=== PATIENT | female | born 1970 | race American Indian/Alaskan Native ===

== ENCOUNTER 2017-04-16 10:28 | Inpatient (IN) | payer BC ==
--- NOTE | 2017-04-16 10:55 | ED PDOC ---
Arrival/HPI - General Time Seen by Provider: 04/16/17 10:29 Historian: Patient - History of Present Illness Narrative History of Present Illness (Text): 04/16/17 10:29 A 47 year old female brought into the emergency department by EMS from dialysis center for left sided weakness. as per ems and provider at [facility] center, pt had onset of symptoms at 10am. Patient was last seen normal approximately 30 minutes prior to evaluation. at bedside, pt with left sided defcitis, awake, alert, denies other complaints. code stroke called upon arrival. PMD: Dr. Reyes 04/16/17 18:02 Time/Duration: Prior to Arrival Symptom Course: Unchanged Quality: Other Context: Other (Dialysis center) Past Medical History - Provider Review Nursing Documentation Reviewed: Yes - Cardiac Hx Cardiac Disorders: Yes Hx Congestive Heart Failure: Yes Hx Hypertension: Yes - Pulmonary Hx Respiratory Disorders: No - Neurological Hx Neurological Disorder: No Hx Paralysis: No - HEENT Hx HEENT Disorder: No - Renal Hx Renal Disorder: Yes Hx Renal Failure: Yes (PT. FOUND OUT IN 2013) Other/Comment: Left AV shunt - Endocrine/Metabolic Hx Diabetes Mellitus Type 1: Yes Other/Comment: Partial Thyroidectomy - Hematological/Oncological Hx Anemia: Yes - Integumentary Hx Dermatological Disorder: No - Musculoskeletal/Rheumatological Hx Falls: Yes - Gastrointestinal Hx Gastrointestinal Disorders: No - Genitourinary/Gynecological Hx Genitourinary Disorders: Yes (RENAL FAILURE) Other/Comment: Partial Hysterectomy 2007 - Psychiatric Hx Substance Use: No - Surgical History Hx Cholecystectomy: Yes Hx Hysterectomy: Yes - Anesthesia Hx Anesthesia Reactions: No Hx Malignant Hyperthermia: No - Suicidal Assessment Feels Threatened In Home Enviroment: No Family/Social History - Physician Review Nursing Documentation Reviewed: Yes Family/Social History: No Known Family HX Smoking Status: Never Smoked Hx Alcohol Use: No Hx Substance Use: No Allergies/Home Meds Allergies/Adverse Reactions: Allergies No Known Allergies Allergy (Verified 04/16/17 21:39) Home Medications: Home Meds Medication Instructions Recorded Confirmed Furosemide [Lasix] 3 tab PO BID 12/03/14 04/17/17 Insulin Glargine,Hum.rec.anlog 10 unit SC HS 12/03/14 04/17/17 [Lantus] Carvedilol [Coreg] 12.5 mg PO BID 04/30/15 04/17/17 Ferrous Sulfate [Feosol] 325 mg PO DAILY 04/17/17 04/17/17 Review of Systems - Review of Systems Systems not reviewed;Unavailable: Acuity of Condition Physical Exam Vital Signs Reviewed: Yes Vital Signs Temp Pulse Pulse Resp BP Pulse Ox 04/16/17 15:10 78 18 130/70 100 04/16/17 14:45 80 16 118/62 100 04/16/17 14:30 87 16 157/78 H 100 04/16/17 14:15 90 16 147/72 100 04/16/17 14:00 85 16 142/70 100 04/16/17 13:45 82 16 160/84 H 100 04/16/17 13:30 88 16 154/84 H 100 04/16/17 13:00 87 18 180/88 H 100 04/16/17 12:44 89 16 161/85 H 100 04/16/17 12:30 89 16 160/84 H 100 04/16/17 12:15 86 16 176/86 H 100 04/16/17 12:00 106 H 16 167/94 H 93 L 04/16/17 11:45 90 16 160/84 H 100 04/16/17 11:30 92 H 16 177/84 H 100 04/16/17 11:15 86 18 176/110 H 100 04/16/17 11:03 97.7 F 94 H 19 185/105 H 98 04/16/17 11:00 95 H 18 207/135 H 95 04/16/17 10:45 92 H 18 212/117 H 100 04/16/17 10:30 93.2 F L 66 65 16 130/57 L Temperature: Afebrile Blood Pressure: Hypertensive Pulse: Tachycardic Respiratory Rate: Normal Mental Status: Positive for: other (acting normal to baseline, ambulating without difficulty) - Systems Exam Upper Extremity: No: Cyanosis, Edema Lower Extremity: No: Edema Skin: No: Rashes Medical Decision Making ED Course and Treatment: 04/16/17 10:29 Impression: A 47 year old female sent from dialysis for left sided weakness. r/o cva Plan: -- Head CT -- Chest xray -- EKG -- Labs -- Urinalysis -- Nicardipine -- Reassess and disposition Progress Notes: Code stroke called upon patients arrival at 10:[address]. intial head ct shows large hemorrhage. case discussed with dr kyle, recommend neurosurgical eval. case discussed with dr alvarado, who came bedsdie, no surgical intervention. case discussed with [facility] for possible transfer, dr palmer. advises no surgical intervention indicated, so no indication for transfer. 04/16/17 11:06 EKG shows NSR at [address]/T wave changes. Interpreted by me. Report Date : 04/16/2017 10:56:27 PROCEDURE: CT HEAD WITHOUT CONTRAST. Dictator : Rei Morle MD IMPRESSION: Intraparenchymal hemorrhage is identified in the right cerebral hemisphere centered at the right basal ganglia but also in the medial right temporal lobe and inferior right frontal lobe, overall volume approximately 36 cc. A minimal leftward midline shift is identified at 5 mm. Basilar cisterns appear widely patent. Limited local mass-effect is otherwise identified. Intraventricular hemorrhage is identified at the right lateral ventricle predominately but also mildly at the left lateral ventricle and in the 3rd and 4th ventricles as well. Remainder the brain appears unremarkable. Report Date : 04/16/2017 10:58:01 PROCEDURE: CHEST RADIOGRAPH, 1 VIEW Dictator : Rob Mcduffie MD IMPRESSION: Mild vascular congestion and minimal interstitial infiltrate at the right lung base 04/16/17 18:03 1130: upon reassesemtn found pt lethargic, minimally responsive. pt intubated for airway protection. dr kyle bedside, dr jamil bedside. repeat head ct ordered. dr majano bedside, placed ventric, will take pt to OR for craniotomy - Lab Interpretations Lab Results: 04/16/17 10:56 04/16/17 10:56 Lab Results 04/16/17 12:45: pCO2 40, pO2 211.0 H, HCO3 27.2, ABG pH 7.44, ABG Total CO2 28.4 H, ABG O2 Saturation 99.2 H, ABG Base Excess 2.8, ABG Potassium 3.4 L, Glucose 219 H, Lactate 1.4, FiO2 50.0, Sodium 151.0 H, Chloride 98.0, Arterial Blood Potassium 3.4 L 04/16/17 12:15: Blood Type Confirm B POSITIVE 04/16/17 11:29: Blood Type B POSITIVE, Antibody Screen Negative, BBK History Checked No verified bt 04/16/17 10:56: Hemoglobin A1c 8.3 H 04/16/17 10:56: Sodium 143, Potassium 3.3 L, Chloride 99, Carbon Dioxide 30, Anion Gap 17, BUN 17, Creatinine 3.6 H, Est GFR ( Amer) 16, Est GFR (Non- Af Amer) 14, Random Glucose 156 H, Calcium 9.4, Total Bilirubin 1.5 H, AST 38, ALT 41, Alkaline Phosphatase 291 H, Troponin I 0.03, Total Protein 7.2, Albumin 3.7, Globulin 3.5, Albumin/Globulin Ratio 1.1, Triglycerides 113, Cholesterol 196, LDL Cholesterol Direct 103, HDL Cholesterol 60 04/16/17 10:56: PT 13.5 H, INR 1.25 H, APTT 23.6 L 04/16/17 10:56: WBC 5.7, RBC 4.29, Hgb 12.6, Hct 36.9, MCV 86.0, MCH 29.4, MCHC 34.1, RDW 15.0 H, Plt Count 248, MPV 12.2 H, Gran % 59.9, Lymph % (Auto) 28.0, Colbert % (Auto) 8.0 H, Eos % (Auto) 3.1, Baso % (Auto) 1.0, Gran # 3.43, Lymph # 1.6, Colbert # 0.5, Eos # 0.2, Baso # 0.06 I have reviewed the lab results: Yes - RAD Interpretation Radiology Orders: 04/16/17 10:30 HEAD W/O (CODE STROKE) [CT] Stat CHEST ONE VIEW [RAD] Stat 04/16/17 12:38 CXR [CHEST PORTABLE] [RAD] Stat - Medication Orders Current Medication Orders: Nicardipine HCl (Cardene Iv Premix) 20 mg in 200 mls @ 50 mls/hr IV .Q4H PRN; Protocol; 5 MG/HR PRN Reason: TITRATE PER MD ORDER Last Titration: 04/18/17 15:08 Dose: 0 mg/hr, 0 mls/hr Propofol (Diprivan) 1,000 mg in 100 mls @ 1.705 mls/hr IV .Q24H PRN; Protocol; 5 MCG/KG/MIN PRN Reason: TITRATE PER MD ORDER Last Titration: 04/18/17 08:30 Dose: 0 mcg/kg/min, 0 mls/hr Doxycycline Hyclate 100 mg/ (Sodium Chloride) 100 mls @ 100 mls/hr IVPB Q12 NILSA PRN Reason: Protocol Last Admin: 04/19/17 09:19 Dose: 100 mls/hr Ceftriaxone Sodium (Rocephin 1 Gram Ivpb) 1 gm in 100 mls @ 100 mls/hr IVPB DAILY NILSA PRN Reason: Protocol Last Admin: 04/19/17 09:13 Dose: 100 mls/hr Insulin Human Regular 100 (units/ Sodium Chloride) 100 mls @ 1 mls/hr IV .Q24H PRN; Protocol; 1 UNITS/HR PRN Reason: TITRATE PER MD ORDER Last Titration: 04/19/17 02:06 Dose: 0 units/hr, 0 mls/hr Levetiracetam 1,000 mg/ Sodium (Chloride) 110 mls @ 460 mls/hr IV Q12 [facility] Last Admin: 04/19/17 09:18 Dose: 460 mls/hr Sodium Chloride (Hypertonic Saline 3%) 500 mls @ 30 mls/hr IV .[id number] [facility] Last Admin: 04/19/17 09:07 Dose: 30 mls/hr Pantoprazole Sodium (Protonix Inj) 40 mg IVP Q12 [facility] Last Admin: 04/19/17 09:13 Dose: 40 mg Polyethylene Glycol (Miralax) 17 gm PO DAILY NILSA Discontinued Medications Bacitracin (Bacitracin) Confirm Administered Dose 30 gm .ROUTE .STK-MED ONE Stop: 04/16/17 15:02 Bacitracin (Bacitracin) Confirm Administered Dose 50,000 unit .ROUTE .STK-MED ONE Stop: 04/16/17 15:02 Ephedrine (Ephedrine) Confirm Administered Dose 50 mg .ROUTE .STK-MED ONE Stop: 04/16/17 15:10 Etomidate (Amidate) Confirm Administered Dose 20 mg IV .STK-MED ONE Stop: 04/16/17 12:07 Last Admin: 04/16/17 18:11 Dose: Fentanyl (Fentanyl) Confirm Administered Dose 250 mcg IV .STK-MED ONE Stop: 04/16/17 15:18 Gelatin (Gelfoam Size 100) Confirm Administered Dose 1 spg .ROUTE .STK-MED ONE Stop: 04/16/17 15:02 Desmopressin Acetate 8 mcg/ (Sodium Chloride) 52 mls @ 100 mls/hr IV STAT STA Stop: 04/16/17 13:30 Last Admin: 04/16/17 18:11 Dose: Sodium Chloride (Sodium Chloride 0.9%) 1,000 mls @ 999 mls/hr IV .Q1H1M STA Stop: 04/16/17 20:46 Last Admin: 04/16/17 20:06 Dose: 999 mls/hr Sodium Chloride (Hypertonic Saline 3%) 500 mls @ 30 mls/hr IV .[id number] [facility] Last Admin: 04/16/17 22:18 Dose: 30 mls/hr Potassium Chloride (Potassium Chloride 20 Meq/100 Ml) 20 meq in 100 mls @ 50 mls/hr IVPB ONCE ONE Stop: 04/17/17 02:37 Last Admin: 04/17/17 00:44 Dose: 50 mls/hr Sodium Chloride (Hypertonic Saline 3%) 500 mls @ 50 mls/hr IV .Q10H [facility] Last Admin: 04/17/17 21:30 Dose: 50 mls/hr Potassium Chloride (Potassium Chloride 20 Meq/100 Ml) 20 meq in 100 mls @ 50 mls/hr IVPB ONCE ONE Stop: 04/17/17 11:49 Last Admin: 04/17/17 10:30 Dose: Potassium Chloride (Potassium Chloride 20 Meq/100 Ml) 20 meq in 100 mls @ 50 mls/hr IVPB ONCE ONE Stop: 04/17/17 18:20 Last Admin: 04/17/17 19:00 Dose: Sodium Chloride (Sodium Chloride 0.9%) 500 mls @ 999 mls/hr IV .Q31M STA Stop: 04/18/17 16:07 Last Admin: 04/18/17 15:45 Dose: 999 mls/hr Insulin Human Regular (Humulin R Med) 0 units SC Q4H NILSA PRN Reason: Protocol Insulin Human Regular (Humulin R Med) 0 units SC Q2H NILSA PRN Reason: Protocol Last Admin: 04/16/17 22:00 Dose: Labetalol HCl (Trandate) 10 mg IV STAT STA Stop: 04/16/17 13:55 Last Admin: 04/16/17 18:10 Dose: Lidocaine/Epinephrine (Xylocaine 1% W Epi 1:100,000 Inj) Confirm Administered Dose 50 ml .ROUTE .STK-MED ONE Stop: 04/16/17 15:02 Last Admin: 04/16/17 16:25 Dose: 8 ml Lorazepam (Ativan) Confirm Administered Dose 2 mg .ROUTE .STK-MED ONE Stop: 04/16/17 14:19 Last Admin: 04/16/17 18:10 Dose: Ondansetron HCl (Zofran Inj) Confirm Administered Dose 4 mg .ROUTE .STK-MED ONE Stop: 04/16/17 10:46 Last Admin: 04/16/17 10:45 Dose: 4 mg Comments: given emergency Ondansetron HCl (Zofran Inj) 4 mg IVP STAT STA Stop: 04/16/17 11:22 Last Admin: 04/16/17 11:52 Dose: 4 mg Phenylephrine HCl (Phenylephrine Inj) Confirm Administered Dose 10 mg .ROUTE .ST-MED ONE Stop: 04/16/17 15:11 Pneumococcal Polyvalent Vaccine (Pneumovax 23 Vaccine) 0.5 ml IM .ONCE ONE Stop: 04/17/17 01:00 Rocuronium [place] (Zemuron) 50 mg IVP STAT STA Stop: 04/16/17 14:44 Last Admin: 04/16/17 18:09 Dose: Rocuronium [place] (Zemuron) Confirm Administered Dose 50 mg .ROUTE .STK-MED ONE Stop: 04/16/17 15:06 Soap/Cleanser (Mastisol Adhesive) Confirm Administered Dose 1.332 ml TOP .STK- MED ONE Stop: 04/16/17 16:19 Succinylcholine Chloride (Quelicin) Confirm Administered Dose 200 mg IV .STK- MED ONE Stop: 04/16/17 12:07 Last Admin: 04/16/17 12:10 Dose: 100 mg Comments: adm as per verbal order from dr. mi Thrombin (Thrombin-Jmi 20,000 Intl Units Landing Kit) Confirm Administered Dose 20 ,000 iu TOP .STK-MED ONE Stop: 04/16/17 15:03 Vancomycin HCl (Vancomycin Inj) Confirm Administered Dose 1 gm .ROUTE .STK-MED ONE Stop: 04/16/17 15:50 Last Admin: 04/16/17 15:51 Dose: 1 gm Comments: ORM Administered Route: IVPB NIHSS Scale ([place]) Time Performed: 10:29 - How Severe is the Stoke Baseline Level of Consciousness: 0=Alert LOC to Questions: 0=Both comments correct LOC to commands: 0=Obeys both correctly Best Gaze: 1=Partial gaze palsy Visual: 0=No visual loss Facial: 3=Complete unilateral paralysis Motor Arm - Left: 4=No movement Motor Arm - Right: 0=No drift Motor Leg - Left: 4=No movement Motor Leg - Right: 0=No drift Limb Ataxia: 0=Absent Sensory: 0=Normal Best Language: 0=No aphasia Dysarthia: 1=Mild to moderate slurring Extinction & Inattention (Neglect): 0=Normal, no object Score: 13 Risk Level: Mod Stroke Risk rTPA Inclusion/Exclusion - Refusal of Treatment Patient Refused Treatment: No - Inclusion Criteria for Altepase Patient is 18 years or Older: Yes The Clinical Diagnosis of Ischemic Stroke That is Causing a Potentially Disabling Neurological Deficit: Yes Time of Onset is Well Established to be Less Than 270 Minute Before Treatment Would Begin: Yes Risk/Benefit Discussed With Patient/Family Member Present: No - Exclusion Criteria for Altepase Active Internal Bleeding: Yes - Scribe Statement The provider has reviewed the documentation as recorded by the Imaniibmaria ines Maravilla Provider Scribe Attestation: All medical record entries made by the Scribe were at my direction and personally dictated by me. I have reviewed the chart and agree that the record accurately reflects my personal performance of the history, physical exam, medical decision making, and the department course for this patient. I have also personally directed, reviewed, and agree with the discharge instructions and disposition. Disposition/Present on Arrival - Present on Arrival Any Indicators Present on Arrival: No History of DVT/PE: No History of Uncontrolled Diabetes: Yes Urinary Catheter: No History Surgical Site Infection Following: None - Disposition Have Diagnosis and Disposition been Completed?: Yes Diagnosis: ICH (intracerebral hemorrhage) Disposition: HOSPITALIZED Disposition Time: 04:00 Patient Problems: Current Active Problems Problem Status Onset ICH (intracerebral hemorrhage) Acute Condition: CRITICAL
--- NOTE | 2017-04-16 10:57 | CT ---
PROCEDURE: CT HEAD WITHOUT CONTRAST. HISTORY: Code Stroke COMPARISON: None available. TECHNIQUE: Axial computed tomography images were obtained through the head/brain without intravenous contrast. Radiation dose: Total exam DLP = 769 mGy-cm. This CT exam was performed using one or more of the following dose reduction techniques: Automated exposure control, adjustment of the mA and/or kV according to patient size, and/or use of iterative reconstruction technique. FINDINGS: HEMORRHAGE: There is of mildly large right S intracranial hemorrhage centered at the right base a ganglia but also along the inferior right frontal lobe and extending into the right temporal lobe somewhat. Further, hemorrhage is extended into the right lateral ventricle and also minimally into the left lateral ventricle. A mild amount hemorrhage identified is identified in the 3rd ventricle and 4th ventricle. The basilar cisterns appear unaffected at this time. The minimal subfalcine herniation is appreciated, approximately 5 mm toward the left. Trace edema surrounds the intraparenchymal component of the hemorrhage. The extra-axial spaces in the periphery are unremarkable diffusely. No cortical edema is appreciated throughout. BRAIN: Intraparenchymal hemorrhage identified as discussed above with the cerebral, cerebellar and brainstem parenchyma otherwise unremarkable overall. VENTRICLES: Unremarkable. No hydrocephalus. CALVARIUM: Unremarkable. PARANASAL SINUSES: Unremarkable as visualized. No significant inflammatory changes. MASTOID AIR CELLS: Unremarkable as visualized. No inflammatory changes. OTHER FINDINGS: None. IMPRESSION: Intraparenchymal hemorrhage is identified in the right cerebral hemisphere centered at the right basal ganglia but also in the medial right temporal lobe and inferior right frontal lobe, overall volume approximately 36 cc. A minimal leftward midline shift is identified at 5 mm. Basilar cisterns appear widely patent. Limited local mass-effect is otherwise identified. Intraventricular hemorrhage is identified at the right lateral ventricle predominately but also mildly at the left lateral ventricle and in the 3rd and 4th ventricles as well. Remainder the brain appears unremarkable. Findings were discussed with meghan Hart 04/16/2017 at 10:40 a.m..
--- NOTE | 2017-04-16 10:59 | RAD ---
PROCEDURE: CHEST RADIOGRAPH, 1 VIEW HISTORY: code stroke COMPARISON: 04/28/2015 FINDINGS: LUNGS: Minimal interstitial infiltrate right lung base. Mild vascular congestion PLEURA: No pneumothorax or pleural fluid seen. CARDIOVASCULAR: Mild cardiomegaly OSSEOUS STRUCTURES: No significant abnormalities. VISUALIZED UPPER ABDOMEN: Normal. OTHER FINDINGS: None. IMPRESSION: Mild vascular congestion and minimal interstitial infiltrate at the right lung base
[2017-04-16 11:01] LABS: BASO # 0.06 K/mm3 (0.0-2.0); EOS # 0.2 (0.0-0.7); EOS % 3.1 % (1.5-5.0); GRAN # 3.43 (1.4-6.5); GRAN % 59.9 % (50.0-68.0); HEMOGLOBIN 12.6 g/dL (12.0-16.0); LYMPH # 1.6 (1.2-3.4); MEAN CORPUSCULAR HEMOGLOBIN 29.4 pg (25.0-35.0); MEAN CORPUSCULAR HGB CONC 34.1 g/dl (31.0-37.0); MEAN PLATELET VOLUME 12.2 fl (7.0-11.0); MONO # 0.5 (0.1-0.6); PLATELET COUNT 248 10^3/uL (120.0-450.0); RBC 4.29 10^6/uL (3.5-6.1); WHITE BLOOD COUNT 5.7 10^3/ul (4.5-11.0)
[2017-04-16 11:11] LABS: ALB/GLOB RATIO 1.1 (1.1-1.8); ALBUMIN 3.7 g/dL (3.0-4.8); CALCIUM 9.4 mg/dL (8.4-10.5)
[2017-04-16 11:12] LABS: INR 1.25 (0.93-1.08); PARTIAL THROMBOPLASTIN TIME 23.6 Seconds (23.7-30.8); PROTHROMBIN TIME 13.5 Seconds (9.9-11.8)
[2017-04-16] MEDS: Nicardipine 20 MG/200 ML 20 MG/200 ML BAG IV PRN ×2 (11:15→23:15)
[2017-04-16 11:24] LABS: TROPONIN I 0.03 ng/mL
[2017-04-16] MEDS ORDERED: Etomidate 20 mg/10ml Inj IV ONE (12:06)
[2017-04-16] MEDS ORDERED: Succinylcholine 200 mg/10 ml Inj IV ONE (12:06)
[2017-04-16 12:55] LABS: ARTERIAL BLOOD GAS HCO3 27.2 mmol/L (21-28); ARTERIAL BLOOD GAS O2 SAT 99.2 % (95-98); ARTERIAL BLOOD GAS PCO2 40 mm/Hg (35-45); ARTERIAL BLOOD GAS PH 7.44 (7.35-7.45); ARTERIAL BLOOD GAS TCO2 28.4 mmol.L (22-28)
--- NOTE | 2017-04-16 12:56 | RAD ---
HISTORY: intubation COMPARISON: 04/16/2017 FINDINGS: LUNGS: No active pulmonary disease. PLEURA: No significant pleural effusion identified, no pneumothorax apparent. CARDIOVASCULAR: Normal. OSSEOUS STRUCTURES: No significant abnormalities. VISUALIZED UPPER ABDOMEN: Normal. OTHER FINDINGS: None. IMPRESSION: Endotracheal tube in satisfactory position. Mild vascular congestion
[2017-04-16] MEDS ORDERED: DESMOPRESSIN IV STA (12:59)
[2017-04-16] MEDS ORDERED: SODIUM CHLORIDE 0.9% IV STA (12:59)
--- NOTE | 2017-04-16 13:44 | CARD ---
APPROVED REPORT EKG Measurement Heart [id number] <Conclusion> Normal sinus rhythm Possible Left atrial enlargement Nonspecific T wave abnormality Prolonged QT Abnormal ECG
[2017-04-16] MEDS ORDERED: Labetalol 5 mg/ml Inj 20ML IV STA (13:54)
[2017-04-16] MEDS ORDERED: Rocuronium 10 mg/ml (5 ml) IVP STA (14:43)
--- NOTE | 2017-04-16 14:52 | CT ---
PROCEDURE: CT HEAD WITHOUT CONTRAST. HISTORY: bleed COMPARISON: Head CT 04/16/2017 TECHNIQUE: Axial computed tomography images were obtained through the head/brain without intravenous contrast. Radiation dose: Total exam DLP = 690 mGy-cm. This CT exam was performed using one or more of the following dose reduction techniques: Automated exposure control, adjustment of the mA and/or kV according to patient size, and/or use of iterative reconstruction technique. FINDINGS: HEMORRHAGE: Intraparenchymal hemorrhage centered at the right base a ganglia is increased in volume now measuring approximately 61 cc with the cephalad extent involving the barroso radiation region and inferior margins extending into the anteromedial right temporal lobe. Midline shift now measures 1.2 cm. Intraventricular hemorrhage is slightly increased at the right lateral ventricle and is moderate within the 3rd ventricle an slightly increased at the left lateral ventricle. Obstructive hydrocephalus is developing in the left lateral ventricle. Hemorrhage within the 4th ventricle is mildly increased. Limited mass-effect is identified at the bilateral cerebral peduncles indicating mass effect at the upper segment of basilar cisterns. Effacement of the cerebral sulci is diffuse and bilateral. BRAIN: See discussion above. VENTRICLES: See discussion above. CALVARIUM: Unremarkable. PARANASAL SINUSES: Unremarkable as visualized. No significant inflammatory changes. MASTOID AIR CELLS: Unremarkable as visualized. No inflammatory changes. OTHER FINDINGS: None. IMPRESSION: Intraparenchymal hemorrhage in the right cerebral hemisphere has increased to an approximate volume of 61 cc centered at the right basal ganglia but also involving the right frontal and temporal lobes. Expansion into the ventricular system is increased, particularly at the right lateral and 3rd ventricles, as discussed above, and to a lesser degree at the left lateral ventricle and the 4th ventricle. Obstructive yes hydrocephalus developing at the left lateral ventricle Further, a 1.2 cm leftward midline shift is identified as well as mass effect at the upper brain stem bilaterally has developed. Loss of the cerebral sulcation is noted diffusely, bilaterally. Please see discussion above. Findings discussed with Dr. Angelo at 04/16/2017, 14:40 p.m.
[2017-04-16] MEDS ORDERED: Absorbable Gelatin Sponge Size 100 ONE (15:01)
[2017-04-16] MEDS ORDERED: Bacitracin Ointment 30 GM TUBE ONE (15:01)
[2017-04-16] MEDS ORDERED: Lidocaine 1% w Epi 1:100,000 Inj ONE (15:01)
[2017-04-16] MEDS ORDERED: Thrombin Topical 20,000 Intl Units Spray Kit TOP ONE (15:02)
[2017-04-16] MEDS ORDERED: Rocuronium 10 mg/ml (5 ml) ONE (15:05)
[2017-04-16] MEDS ORDERED: ePHEDrine 50 mg/ml Inj ONE (15:09)
[2017-04-16] MEDS ORDERED: Phenylephrine 10 mg/ml Inj ONE (15:10)
--- NOTE | 2017-04-16 15:11 | CP.PCM.CON ---
History of Present Illness - History of Present Illness History of Present Illness: Mrs. Martinez is a 47-year-old woman with hypertension, diabetes, ESRD, who developed left side hemiplegia while she was at dialysis this morning. She was brought to the ED where an initial CT head showed a large right basal ganglia intraparenchymal hemorrhage with intraventricular involvement measuring about 35 cc. There was about 5-6 mm midline shift. She was hypertensive and required cardene drip. At the time of her initial evaluation by neurosurgery, she was still following commands and pupils were equally reactive. She then became unresponsive, right pupil dilated and unreactive. Repeat CT head showed significantly worsening midline shift, intraventricular involvement with increase in volume to about 65 cc. ICH score is about a 4. I evaluated the patient and discussed with neurosurgery the urgent need for EVD and/or decompression of the right sided hematoma. The patient had an EVD placed in the ED with a plan for transfer to the OR for craniectomy and decompression. Review of Systems - Review of Systems Systems not reviewed;Unavailable: Acuity of Condition, Altered Mental Status, Intubated Past Patient History - Past Medical History & Family History Past Medical History?: Yes - Past Social History Smoking Status: Never Smoked - CARDIAC Hx Cardiac Disorders: Yes Hx Congestive Heart Failure: Yes Hx Hypertension: Yes - PULMONARY Hx Respiratory Disorders: No - NEUROLOGICAL Hx Neurological Disorder: No Hx Paralysis: No - HEENT Hx HEENT Problems: No - RENAL Hx Chronic Kidney Disease: Yes Hx Renal Failure: Yes (PT. FOUND OUT IN 2013) Other/Comment: Left AV shunt - ENDOCRINE/METABOLIC Hx Diabetes Mellitus Type 1: Yes Other/Comment: Partial Thyroidectomy - HEMATOLOGICAL/ONCOLOGICAL Hx Anemia: Yes - INTEGUMENTARY Hx Dermatological Problems: No - MUSCULOSKELETAL/RHEUMATOLOGICAL Hx Falls: Yes - GASTROINTESTINAL Hx Gastrointestinal Disorders: No - GENITOURINARY/GYNECOLOGICAL Hx Genitourinary Disorders: Yes (RENAL FAILURE) Other/Comment: Partial Hysterectomy 2006 - PSYCHIATRIC Hx Substance Use: No - SURGICAL HISTORY Hx Cholecystectomy: Yes Hx Hysterectomy: Yes - ANESTHESIA Hx Anesthesia Reactions: No Hx Malignant Hyperthermia: No Meds Allergies/Adverse Reactions: Allergies Allergy/AdvReac Type Severity Reaction Status Date / Time No Known Allergies Allergy Verified 04/28/15 15:36 - Medications Medications: Current Medications Nicardipine HCl (Cardene Iv Premix) 20 mg in 200 mls @ 50 mls/hr IV .Q4H PRN; Protocol; 5 MG/HR PRN Reason: TITRATE PER MD ORDER Last Admin: 04/16/17 11:15 Dose: 50 mls/hr Physical Exam - Neurological Exam Additional comments: Intubated, off sedation with non-reactive pupil on the right that is dilated to 8 mm. Left pupil is sluggishly reactive at 4 mm. Breathing over the vent, corneal reflex is present. GCS=3-4 with no significant response to pain. Results - Vital Signs Recent Vital Signs: Last Vital Signs Temp 97.7 F 04/16/17 11:03 Pulse 95 H 04/16/17 11:29 Resp 18 04/16/17 11:29 BP 207/135 H 04/16/17 11:29 Pulse Ox 95 04/16/17 11:29 - Labs Result Diagrams: 04/16/17 10:56 04/16/17 10:56 Assessment & Plan (1) ICH (intracerebral hemorrhage) Assessment and Plan: Based on history, clinical exam and imaging findings, the patient has an ICH score of 4. This is correlated with a very poor prognosis and historically the mortality is around 97%. However, the patient is young and may have a better chance of survival. I recommend bolusing with 500 mL of 3% hypertonic saline, urgent EVD and decompressive craniectomy, keep the head of the bed elevated to 30-40 degrees, mild hyperventilation in preparation for surgery. Admit the patient to the ICU for close monitoring. DDAVP was given. Will follow the patient in the ICU along with neurosurgery. Thank you. Status: Acute Priority: High
[2017-04-16] MEDS ORDERED: Vancomycin 1 g Inj ONE (15:49)
--- NOTE | 2017-04-16 15:49 | CP.PCM.HP ---
History of Present Illness - History of Present Illness History of Present Illness: This is a 47Y F with PMH IDDM, ESRD on HD (MWF), HTN who was came to ED from HD for L sided hemiplagia. Patient reports that during dialysis, she began to get a headache and then L sided weakness. Patient was hypertensive with SBP in 200s. At the time, she denied CP, SOB, n/v/d, vision changes, fever or chills. She was able to follow commands at the time of interview. Pupils were pinpoint, but not reactive. Head CT in ED was significant for R intracerebral hemorrhage. Patient was then intubated for airway protection. Neurology and Neurosurgery evaluated pt in ED. At time of neuro evaluation, patient was intubated, R pupil was blown. Repeat Head CT done showing worsening midline shift. Patient then had bedside EVD and transferred to OR for crainiotomy. Medical history obtained from family and prior records. PMH: IDDM, ESRD on HD, HTN, CHF? (on prev records) PSH: Cholecystectomy, Hysterectomy, L AV fistula Home meds: Please refer to [facility] All: NKDA SH: denies tobacco, EtOH or drug use FH: HTN, DM PMD: Dr. Reyes Present on Admission - Present on Admission Any Indicators Present on Admission: No Review of Systems - Constitutional Constitutional: Headache, Weakness. absent: Chills, Fever - EENT Eyes: absent: Change in Vision - Cardiovascular Cardiovascular: absent: Chest Pain, Pedal Edema, Syncope - Respiratory Respiratory: absent: Cough, Dyspnea - Gastrointestinal Gastrointestinal: absent: Change in Bowel Habits, Constipation, Diarrhea, Melena , Nausea, Vomiting - Genitourinary Genitourinary: absent: Dysuria, Hematuria - Neurological Neurological: Numbness, Focal Weakness, Headaches, Sensory Deficit, Tingling, Weakness - Psychiatric Psychiatric: absent: Anxiety, Depression Past Patient History - Past Medical History & Family History Past Medical History?: Yes - Past Social History Smoking Status: Never Smoked Alcohol: None Drugs: Denies Home Situation {Lives}: With Family - CARDIAC Hx Cardiac Disorders: Yes Hx Congestive Heart Failure: Yes Hx Hypertension: Yes - PULMONARY Hx Respiratory Disorders: No - NEUROLOGICAL Hx Neurological Disorder: No Hx Paralysis: No - HEENT Hx HEENT Problems: No - RENAL Hx Chronic Kidney Disease: Yes Hx Renal Failure: Yes (PT. FOUND OUT IN 2013) Other/Comment: Left AV shunt - ENDOCRINE/METABOLIC Hx Diabetes Mellitus Type 1: Yes Other/Comment: Partial Thyroidectomy - HEMATOLOGICAL/ONCOLOGICAL Hx Anemia: Yes - INTEGUMENTARY Hx Dermatological Problems: No - MUSCULOSKELETAL/RHEUMATOLOGICAL Hx Falls: Yes - GASTROINTESTINAL Hx Gastrointestinal Disorders: No - GENITOURINARY/GYNECOLOGICAL Hx Genitourinary Disorders: Yes (RENAL FAILURE) Other/Comment: Partial Hysterectomy 2007 - PSYCHIATRIC Hx Substance Use: No - SURGICAL HISTORY Hx Cholecystectomy: Yes Hx Hysterectomy: Yes - ANESTHESIA Hx Anesthesia Reactions: No Hx Malignant Hyperthermia: No Meds Allergies/Adverse Reactions: Allergies Allergy/AdvReac Type Severity Reaction Status Date / Time No Known Allergies Allergy Verified 04/28/15 15:36 Physical Exam - Head Exam Head Exam: ATRAUMATIC, NORMAL INSPECTION, NORMOCEPHALIC - Eye Exam Eye Exam: absent: PERRL Pupil Exam: absent: PERRL - ENT Exam ENT Exam: Mucous Membranes Moist Additional comments: Tongue deviates to L - Neck Exam Neck exam: Positive for: Normal Inspection - Respiratory Exam Respiratory Exam: Clear to Auscultation Bilateral, NORMAL BREATHING PATTERN. absent: Rhonchi, Wheezes, Respiratory Distress - Cardiovascular Exam Cardiovascular Exam: REGULAR RHYTHM, +S1, +S2. absent: Gallop, Rubs - GI/Abdominal Exam GI & Abdominal Exam: Normal Bowel Sounds, Soft. absent: Distended, Guarding, Rigid, Tenderness - Extremities Exam Extremities exam: Positive for: normal inspection. Negative for: pedal edema, tenderness - Neurological Exam Additional comments: THIS EXAM WAS DONE PRIOR TO PROGRESSION OF BLEED - Expanded Neurological Exam Expanded Cranial nerves: Facial Sensation: Abnormal Left, Tongue Deviation: Abnormal Left Upper motor neuron: Babinski Sign: Abnormal Left, Sensory Extinction: Abnormal Left Sensory exam: Lower Extremity 2 Point Discrimination: Abnormal Left, Upper Extremity Light Touch: Abnormal Left Coma Scale Eye Opening: To Voice Coma Scale Motor Response: OBEYS COMMANDS Coma Scale Verbal: Confused Coma Scale Total: 13 - Psychiatric Exam Psychiatric exam: Normal Affect, Normal Mood - Skin Skin Exam: Dry, Intact, Normal Color Results - Vital Signs Recent Vital Signs: Last Vital Signs Temp 97.7 F 04/16/17 11:03 Pulse 95 H 04/16/17 11:29 Resp 18 04/16/17 11:29 BP 207/135 H 04/16/17 11:29 Pulse Ox 95 04/16/17 11:29 - Labs Result Diagrams: 04/16/17 10:56 04/16/17 10:56 Assessment & Plan - Assessment and Plan (Free Text) Assessment: This is a 47Y F with PMH IDDM, ESRD on HD (MWF), HTN who was came to ED from HD admitted for R intracerebral hemorrhage secondary to hypertensive emergency. Plan: 1. Intracerebral hemorrhage - secondary to hypertensive emergency - GCS after intubation was 3-4 - Pt intubated on PRVC - repeat CT head showed worsening of midline shift - Neuro and neurosurgery consulted- recs appreciated - Crainiotomy today - neuro checks q1h - aspiration precaution, HOB elevated - seizure precaution - on Cardene drip - repeat head CT in AM - Repeat head CT if any change in neuro exam - maintain INR <1.4 2. HTN Emergency - Cardene drip - Goal SBP <160 3. DM - ISS, BGM q4h - Maintain euglycemia - Hgb A1c pending 4. ESRD on HD - Nephro consulted - HD as per nephro GI ppx: Protonix DVT ppx: SCDs. No anticoagulants due to active bleed Dispo: Prognosis is guarded. Case seen, discussed and reviewed with attending. Lila Moctezuma PGY2 - Date & Time Date: 04/16/17 Time: 16:42
[2017-04-16] MEDS ORDERED: Insulin Reg-MEDIUM-Coverage SC SCH (16:00)
[2017-04-16] MEDS ORDERED: Liquid Adhesive TOP ONE (16:18)
[2017-04-16] MEDS: Propofol 10 mg/ml 1,000 MG/100 ML VIAL IV PRN (18:02)
[2017-04-16 18:05] LABS: HEMOGLOBIN 11.1 g/dL (12.0-16.0); MEAN CELL VOLUME 86.8 fl (80.0-105.0); MEAN CORPUSCULAR HEMOGLOBIN 28.8 pg (25.0-35.0); MEAN CORPUSCULAR HGB CONC 33.2 g/dl (31.0-37.0); MEAN PLATELET VOLUME 12.8 fl (7.0-11.0); PLATELET COUNT 210 10^3/uL (120.0-450.0); RBC 3.85 10^6/uL (3.5-6.1); RED CELL DISTRIBUTION WIDTH 14.8 % (11.5-14.5); WHITE BLOOD COUNT 8.9 10^3/ul (4.5-11.0)
[2017-04-16] MEDS: Insulin Reg-MEDIUM-Coverage SC SCH ×3 (18:07→22:00)
[2017-04-16 18:31] LABS: CALCIUM 8.8 mg/dL (8.4-10.5)
[2017-04-16 19:27] LABS: BAND 1 % (0-2); NEUTROPHIL 86 % (50.0-70.0)
[2017-04-16 19:28] LABS: EOSINOPHIL 1 % (0.0-3.0); LYMPHOCYTE 11 % (22.0-35.0); MONOCYTE 1 % (1.0-6.0); PLATELET ESTIMATE NORMAL (NORMAL)
[2017-04-16 19:29] LABS: ROULEAU 2+
[2017-04-16] MEDS ORDERED: Sodium Chloride 0.9% 1,000 ML IV STA (19:46)
[2017-04-16] MEDS: cefTRIAXone 1 gm 1 GM/100 ML BAG IVPB SCH (21:07)
--- NOTE | 2017-04-16 22:06 | PCM.PROC ---
<Joseline Moctezuma - Last Filed: 04/16/17 22:04> Procedures Attestation:: I certify that I have explained the specified Operation(s) or Procedure(s), risks, benefits and reasonable alternatives to the Patient and/or other person responsible. The opportunity was given to ask questions and all questions answered - Central Line Placement Left Femoral Triple Lumen Catheter Aseptic technique was employed throughout the procedure: Hand Hygiene done prior to procedure, Full sterile barriers (mask, hair cover, sterile gown, sterile gloves), Full body sterile drape, Chloraprep Antiseptic: 30 second prep for IJ or SC sites, Chloraprep Antiseptic: 2 minute prep for Femoral Pt. Placed on Pulse Ox Monitor: Yes Central Line Prep: Chlorhexidine-Alcohol Combination Ultrasound Used for Placement: Yes Central Line Lumen Inserted: triple Post Procedure: Sutured in Place, Good Blood Return, All Ports Aspirated, Flushed, Capped, Sterile Dressing Applied Secured by: Suture Post procedure dressing: Gauze, Clear vapor permeable, Chlorhexidine disc ( Biopatch) Patient Tolerated Procedure: Well Immediate Complications: None <Jason Duncan - Last Filed: 04/16/17 23:48> Attending/Attestation - Attestation I have personally seen and examined this patient.: Yes I have fully participated in the care of the patient.: Yes I have reviewed all pertinent clinical information, including history, physical exam and plan: Yes Notes (Text): 04/16/17 23:47 I was present at bedside for the placement of the central line throughout it's entirety. Patient tolerated the procedure well without any drastic changes to her hemodynamics; Left groin TLC placed without complications.
[2017-04-16] MEDS ORDERED: Sodium Chloride 3% 500 ML IV SCH (22:15)
[2017-04-16] MEDS: levETIRAcetam 1,000 MG in Sodium Chloride 0.9% 100 ML IV SCH (22:33)
[2017-04-16] MEDS: Insulin Regular 100 UNITS in Sodium Chloride 0.9% 99 ML IV PRN (22:34)
--- NOTE | 2017-04-16 22:53 | CON ---
DATE: 04/16/2017 REASON FOR CONSULTATION: Hypertensive emergency, acute CVA, hemorrhagic stroke. HISTORY OF PRESENT ILLNESS: A 47-year-old woman known to me from outpatient hemodialysis was sent to the emergency room at the end of dialysis almost because she became lethargic, confused, also had weakness of the left side of her body. In the emergency room, her initial blood pressure was 185/105, she was found to have dense hemiplegia of the left side, deviation of the angle of the mouth. She was also found to be lethargic. Subsequently, became unresponsive. She was seen by neurosurgery. CT of her head showed intraparenchymal hemorrhage in the right cerebral hemisphere. Blood volume estimated to be 36 mL that was a minimal leftward midline shift. The patient was intubated in the emergency room. ICU consultation was requested. Neurosurgical evaluation was conservative management at this time. PAST MEDICAL AND SURGICAL HISTORY: Severe hypertension, NIDDM, ESRD, anemia of chronic kidney disease, diabetic retinopathy, cholecystectomy, hysterectomy and left AV fistula. FAMILY HISTORY: Hypertension and diabetes. SOCIAL HISTORY: No smoking, no alcohol use, no IV drug abuse. ALLERGIES: NO KNOWN DRUG ALLERGIES. MEDICATIONS: Insulin, Lasix, ferrous sulfate 325 mg p.o. b.i.d., Coreg 12.5 b.i.d. REVIEW OF SYSTEMS: Unavailable, the patient is unresponsive, being intubated. PHYSICAL EXAMINATION: GENERAL: Young woman, lying in bed in the emergency room. VITAL SIGNS: Blood pressure 207/135, heart rate 95, respiratory rate 18 and temperature 97.7. HEENT: Normocephalic, atraumatic, pupils sluggish reactive to light, symmetrical. NECK: Supple. No JVD. LUNGS: Bilateral equal air entry, bilateral equal expansion. CARDIAC: S1 and S2, regular rate and rhythm, no murmur, no rub. ABDOMEN: Soft, distended, bowel sounds present. No organomegaly. EXTREMITIES: No lower extremity edema. INTAKE AND OUTPUT: Not charted. LABORATORY DATA: WBC 5.7, hemoglobin 12.6, hematocrit 37 and platelets 248. Sodium 143, potassium 3.3, chloride 99, CO2 of 30, BUN 17, creatinine 3.6, glucose 156, hemoglobin A1c 8.3, calcium 9.4, total bili 1.5, AST38, ALT 41 and albumin 3.7. CURRENT MEDICATIONS: Cardene at 5 mg per hour, insulin and Protonix. ASSESSMENT: 1. Acute hemorrhagic stroke. 2. ICA score of 4. 3. Severe hypertension. 4. Urgent craniectomy as per neurosurgical recommendation. 5. Noninsulin-dependent diabetes mellitus. 6. End-stage renal disease. 7. Prognosis grim. PLAN: 1. Urgent evacuation of hematoma as per neurosurgical recommendations. 2. Agree with Cardene drip. 3. Repeat potassium at 4 p.m. 4. Prognosis is guarded. 5. Case is discussed with Dr. Valdez, case is discussed with ICU staff, case is discussed with neurosurgical attending. More than 35 minutes was spent in the care of this critically ill patient. Joy Andrade MD
[2017-04-17 00:21] LABS: CALCIUM 8.8 mg/dL (8.4-10.5)
[2017-04-17 00:32] LABS: TROPONIN I 0.02 ng/mL
[2017-04-17 00:59] VITALS: BMI 22.8
[2017-04-17] MEDS ORDERED: Pneumococcal 23-Valent Vaccine IM ONE (00:59)
[2017-04-17] MEDS: Nicardipine 20 MG/200 ML 20 MG/200 ML BAG IV PRN ×3 (03:14→22:15)
--- NOTE | 2017-04-17 03:36 | CON ---
DATE: 04/16/2017 HISTORY OF PRESENT ILLNESS: This 47-year-old lady with history of hypertension, end-stage renal disease on dialysis who presented with left-sided weakness and was found to have intraparenchymal bleed. Her mental status subsequently deteriorated while she is in the ER and she was found to have progression of the bleed on subsequent CAT scan with midline shift and intraventricular hemorrhage/extension. The patient was intubated for airway protection sedated with propofol, mildly hyperventilated for the first 30 minutes and osmotic therapy initiated with 3% sodium chloride IV bolus. Neurosurgery and neurology were contacted. The patient underwent EVD placement and subsequent craniotomy. She was transferred to ICU for further management and monitoring. No fever, no chills, no sweats, no nausea, no vomiting, no diarrhea, no constipation. PAST MEDICAL HISTORY: Hypertension, end-stage renal disease on dialysis. ALLERGIES: NKDA. SOCIAL HISTORY: No alcohol or illicit drug abuse. No tobacco or smoking. FAMILY HISTORY: Noncontributory. MEDICATIONS AT HOME: Lantus, Lasix, Coreg, and ferrous sulfate. REVIEW OF SYSTEMS: Review of 12-point system other than mentioned in the history of present illness is negative. PHYSICAL EXAMINATION: GENERAL: The patient at present time is sedated with propofol. She is on PRBC 40%/5/16/400. She is on propofol 20 mcg/kg/minute and nicardipine 5 mcg/hr. VITAL SIGNS: Her blood pressure is 140/60. HEENT: Head and neck atraumatic. LUNGS: Clear to auscultation bilaterally. HEART: Regular rate and rhythm. S1 and S2 normal. ABDOMEN: Soft, nontender and nondistended. MUSCULOSKELETAL: No C/C/E. NEUROLOGIC: The patient is sedated. SKIN: Moist. PSYCHIATRIC: The patient is sedated. LABORATORY DATA: Sodium 143, potassium 3.3 (supplemented), chloride 99, carbon dioxide 30, BUN 17, creatinine 3.6, glucose 156, AST 38, ALT 41, alkaline phosphatase 291. Troponin 0.03. WBC 5.7, hemoglobin 12.6 and platelet count 248. INR 1.25. Blood gas 7.44/40/211 on 50% FiO2 (since then FiO2 went down to 40%). Chest x-ray showed endotracheal tube in satisfactory position, mild vascular congestion, left appeared to be more prominent than right. CAT scan of the head revealed intraparenchymal hemorrhage from the right cerebral hemisphere has increased to approximate volume of 61 mL centered at the right basal ganglion, but also involved in the right frontal and temporal lobes. ventricular system is increased particularly at the right lateral and third ventricle as discussed above and to a lesser degree of the left lateral ventricle and the fourth ventricle. Obstructive hydrocephalus developed in the left lateral ventricle, further 1.2 cm leftward midline shift is identified as well as mass effect at the upper brainstem bilaterally has developed. Loss of cerebral sulcation is noted diffusely bilaterally. ASSESSMENT AND PLAN: This is a 47-year-old lady with fairly devastating intracranial bleed who was taken emergently to the operating room for external ventricular drain and craniotomy. At present time, we will proceed with ICP management as per neurosurgical and neurology service. Meanwhile, we will proceed with propofol for decrease intracranial pressure as well as maintaining blood pressure within 120 to 130 range, nicardipine drip 5 mg per hour is continued and will be titrated to assist with a goal above. We will put the central line for the hypertonic saline infusion and maintain sodium within 150 to 155 range. We will maintain euvolemia, euglycemia, normothermia, and oxygen saturation more than 90%. We will continue with head of bed elevated at> 35 degrees. We will continue with protective lung ventilatory strategy to avoid ventilator-induced lung injury. We will keephead in neutral position elevated at 35 degrees. We will continue with mechanical DVT prophylaxis. We will continue GI prophylaxis. ccm time 40 min Aditya Angeles MD GONZÁLEZ
[2017-04-17] MEDS: Propofol 10 mg/ml 1,000 MG/100 ML VIAL IV PRN (05:48)
[2017-04-17 05:51] LABS: BASO # 0.01 K/mm3 (0.0-2.0); BASO % 0.1 % (0.0-3.0); EOS % 0.1 % (1.5-5.0); GRAN % 88.2 % (50.0-68.0); HEMOGLOBIN 11.2 g/dL (12.0-16.0); LYMPH # 0.9 (1.2-3.4); LYMPH % 6.5 % (22.0-35.0); MEAN CELL VOLUME 85.2 fl (80.0-105.0); MEAN PLATELET VOLUME 12.6 fl (7.0-11.0); MONO # 0.7 (0.1-0.6); MONO % 5.1 % (1.0-6.0); PLATELET COUNT 243 10^3/uL (120.0-450.0); RBC 3.86 10^6/uL (3.5-6.1); RED CELL DISTRIBUTION WIDTH 15.3 % (11.5-14.5); WHITE BLOOD COUNT 14.2 10^3/ul (4.5-11.0)
[2017-04-17 06:07] LABS: INR 1.32 (0.93-1.08); PROTHROMBIN TIME 14.3 Seconds (9.9-11.8)
[2017-04-17 06:11] LABS: ALB/GLOB RATIO 0.9 (1.1-1.8); ALBUMIN 2.8 g/dL (3.0-4.8); BILIRUBIN,DIRECT 0.9 mg/dL (0.0-0.4); CALCIUM 8.8 mg/dL (8.4-10.5); MAGNESIUM 1.9 mg/dL (1.7-2.2)
[2017-04-17 06:20] LABS: TROPONIN I 0.02 ng/mL
[2017-04-17 06:24] LABS: ARTERIAL BLOOD GAS HCO3 26.6 mmol/L (21-28); ARTERIAL BLOOD GAS O2 SAT 99.2 % (95-98); ARTERIAL BLOOD GAS PCO2 29 mm/Hg (35-45); ARTERIAL BLOOD GAS PH 7.57 (7.35-7.45); ARTERIAL BLOOD GAS TCO2 27.5 mmol.L (22-28)
--- NOTE | 2017-04-17 06:32 | HP ---
HISTORY OF PRESENT ILLNESS: The patient is a 47-year-old female who actually presented to the Emergency Room from the Dialysis Center. The patient came to the Emergency Room by [facility]. The patient presented with left-sided weakness and slurred speech during dialysis, which started around 10 a.m. The patient was brought to the [facility] with above via EMS ambulance. The patient came in with left-sided weakness and slurred speech. REVIEW OF SYSTEMS: A 13-system review was done, pertinent positive and negative dictated above. CODE STATUS: FULL CODE. HEIGHT: 5 feet 2 inches. WEIGHT: 125. BODY MASS INDEX: 29. HOME MEDICATIONS: Ferrous sulfate 325 mg a day, Lantus 10 units at bedtime, Lasix 20 mg 3 tablets twice a day, and Coreg 12.5 twice a day. SOCIAL HISTORY: Substance use history is negative for alcohol. Negative for smoking. MENSTRUAL HISTORY: Not available. PAST MEDICAL HISTORY: Significant for end-stage renal disease, hemodialysis dependent, history of hypertension, history of hypertensive renal failure, history of left thigh abscess, history of normocytic anemia, and history of hypercholesterolemia. The patient's past medical history is significant for bilateral pleural effusion, and history of cholecystectomy. Past medical history is also significant for hypertensive cardiovascular disease. The patient's past medical history is also significant for history of congestive heart failure, history of hysterectomy, history of thyroidectomy, history of cholecystectomy, and history of cervical cancer. History of AV fistula placement, history of chronic anemia, history of questionable poor compliance according to the patient's family member, history of secondary hyperparathyroidism, history of left upper extremity brachiobasilic fistula placement, and history of revision of the left upper extremity fistula. The patient's past medical history is also significant for history of diabetes mellitus, history of hyperparathyroidism, history of cervical carcinoma, status post hysterectomy by Dr. Ramachandran, history of hypercellular parathyroid tissue, history of parathyroid adenoma, history of left thyroid nodule, and fine-needle aspiration. The patient's medical history is significant for ultrasound-guided left thyroid nodule biopsy in 2006, and history of bilateral thyroid nodules. PHYSICAL EXAMINATION: GENERAL: The patient is seen in ICU bed 3. The patient is lying in bed. The patient is awake and responsive. The patient does have left-sided weakness. VITAL SIGNS: T-max 97.7, heart rate 95, 92, and 94. Blood pressure 212/117, 207/135, 185/105, and 200/119. The patient was seen between 11 a.m. and 11:30 a.m. Respirations were 18 to 16. O2 sat was 100%. The patient is seen lying in the stretcher. HEENT: Head is normocephalic and atraumatic. HEENT examination shows pinkish pale conjunctivae. Positive tongue deviation to the left. NECK: Questionable soft carotid bruit. CHEST: Kyphosis. LUNGS: Shows occasional rhonchi in upper lung field. CARDIOVASCULAR: S1 and S2, regular rhythm. Questionable soft systolic murmur right second intercostal space left sternal border. ABDOMEN: Soft. Positive bowel sounds. GENITALIA: Female. RECTAL: Deferred. EXTREMITIES: Shows positive weakness of the left lower extremity and left upper extremity. Positive left upper extremity AV fistula. Positive Babinski sign noted on the left. The patient has weakness of the left upper and lower extremity. MUSCULOSKELETAL: Shows a body mass index of 23. VASCULAR: Palpable pulses. NEUROLOGIC: Limited. GAIT: Could not be tested. PSYCHIATRIC: Not applicable. DIAGNOSTIC DATA: On 04/16/2017; WBC is 5.7, hemoglobin and hematocrit is 12.6 and 37, and platelets are 248. PT and PTT 13.5 and 23.6. Sodium 143, potassium 3.3, chloride 99, CO2 of 30, anion gap 17, BUN 33.6, glucose 156, A1c was 8.3, alk phos 291, troponin is 0.03, cholesterol 196, and LDL 103. Blood type. The patient had a chest x-ray done and CAT scan of the head was done in the Emergency Room right away, which shows right lower lobe pneumonia and pulmonary vascular congestion. CT of the head shows large intracranial hemorrhage on the right basal ganglia and right frontal lobe extending into the right temporal lobe and hemorrhage extending into the right and left ventricle and into the left lateral ventricle with hemorrhage in the third and fourth ventricle. There is herniation towards the left with edema around the intraparenchymal component. The patient was later evaluated in the Emergency Room because of deteriorating respiratory status. The patient had to be intubated. EKG shows sinus rhythm. The patient was emergently consulted with neurosurgery and neurology. The patient was seen in the Emergency Room. The patient was started on nicardipine drip for blood pressure control. The patient was intubated in the Emergency Room. The patient was given labetalol 10 mg IV. IMPRESSION AND PLAN: 1. Right-sided intracerebral hemorrhage with intracerebral hemorrhage score of 4. 2. Uncontrolled accelerated hypertension. 3. End-stage renal disease, hemodialysis dependent patient. 4. Ventilator-dependent respiratory failure. 5. Left hemiplegia. 6. Dysarthria. 7. Normocytic anemia. 8. Granulocytosis. 9. Hypokalemia. 10. Type 1 insulin-dependent diabetes mellitus with hemoglobin A1c of 8.3. 11. Dyslipidemia with elevated LDL and hypercholesterolemia. 12. Possible right lower lobe aspiration pneumonia. 13. Questionable congestive heart failure. 14. Right-sided intracranial hemorrhage involving right basal ganglia involving right frontal lobe and right temporal lobe with intracranial hemorrhage extending into the right lateral ventricle and the left lateral ventricle and third and fourth ventricle with subfalcine herniation and with left-sided shift. 15. Pulmonary vascular congestion. 16. Intracerebral hemorrhage in the right cerebral hemisphere involving the basal ganglia right frontal and temporal lobe with expansion into the ventricular system into the right lateral and third ventricle and left lateral ventricle and fourth ventricle with obstructive hydrocephalus developing at the left lateral ventricle and midline shift towards the left. 17. Status post right-sided craniotomy and evacuation of the right intracerebral hematoma. The patient will be admitted to intensive care unit. Serial repeat labs ordered. Cardiac enzymes ordered. Current consultation neurosurgery, neurology, infectious disease, nephrology, and cardiology noted. The patient was given desmopressin 8 mcg DDAVP. The patient is empirically started on doxycycline 100 mg IV q.12 hours and regular insulin sliding scale q.2 hours. The patient is on Cardene drip for blood pressure control. The patient is on Diprivan. The patient was started on Protonix 40 IV q.12 hours and Rocephin 1 g IV daily. The patient is n.p.o. The patient is ordered CARLOS stockings and SCDs. The patient's condition was discussed with the patient's Cousin, Shadia and with the patient's aunt. I have explained to the patient's family about the patient's overall [id number] prognosis, which they acknowledged and understand. The patient is seen in ICU. The patient was initially seen in the ER and then in ICU. Time spent in the entire management from the beginning with review of diagnostic data and monitoring of the events more than 1 hour 55 minutes. At present, the patient's further management will be as discussed above. The patient's further management will be dependent upon the patient's clinical condition hemodynamic status and as per the patient's response to therapeutic intervention as per the patient's diagnostic test results and as per recommendation by all subspecialty involving the care of the patient. The patient's family has been informed the patient's prognosis is extremely [id number] and the patient's likelihood of getting worse as much more than the patient's likelihood of getting better, which they acknowledged and understand. All questions concerned and answered to their satisfaction. Nader Ramos MD
[2017-04-17] MEDS: Sodium Chloride 3% 500 ML IV SCH ×3 (07:30→21:30)
--- NOTE | 2017-04-17 08:06 | RAD ---
HISTORY: central line COMPARISON: 04/16/2017 at 12:16 p.m. FINDINGS: LUNGS: No definite infiltrate. There is silhouetting of the left hemidiaphragm of uncertain etiology. However, this film is acquired with severe apical lordotic positioning. Follow-up radiograph is advised. PLEURA: No significant pleural effusion identified, no pneumothorax apparent. CARDIOVASCULAR: Normal heart size. Endotracheal tube has been repositioned with its tip approximately 4.9 cm above the tracheal ramos. Please note that this is a different tube without a radiopaque stripe. OSSEOUS STRUCTURES: No significant abnormalities. VISUALIZED UPPER ABDOMEN: Normal. OTHER FINDINGS: None. IMPRESSION: No definite infiltrate. Limited examination due to apical lordotic positioning. Recommend follow-up. Endotracheal tube tip positioned 4.9 cm above tracheal ramos.
--- NOTE | 2017-04-17 08:58 | CP.PCM.CON ---
History of Present Illness - History of Present Illness History of Present Illness: 47 year old female with PMH of ESRD on HD with left AV fistula, HTN, S/P cholecystectomy, S/P appendectomy was brought in to [facility] after developing a headache with left sided weakness which is acute in onset. She was then found to have a right intracerebral hemorrhage in the ED and the patient underwent Neurosurgery with evacuation of the hematoma. She is currently intubated and in the ICU. In the ED, CXR showed some questionable infiltrates on the right base and Infectious diseases consult is requested to further evaluate and manage. Review of Systems - Review of Systems Systems not reviewed;Unavailable: Intubated Past Patient History - Past Medical History & Family History Past Medical History?: Yes - Past Social History Smoking Status: Never Smoked - CARDIAC Hx Cardiac Disorders: Yes Hx Congestive Heart Failure: Yes Hx Hypertension: Yes - PULMONARY Hx Respiratory Disorders: No - NEUROLOGICAL Hx Neurological Disorder: No Hx Paralysis: No - HEENT Hx HEENT Problems: No - RENAL Hx Chronic Kidney Disease: Yes Hx Renal Failure: Yes (PT. FOUND OUT IN 2013) Other/Comment: Left AV shunt - ENDOCRINE/METABOLIC Hx Diabetes Mellitus Type 1: Yes Other/Comment: Partial Thyroidectomy - HEMATOLOGICAL/ONCOLOGICAL Hx Anemia: Yes - INTEGUMENTARY Hx Dermatological Problems: No - MUSCULOSKELETAL/RHEUMATOLOGICAL Hx Falls: Yes - GASTROINTESTINAL Hx Gastrointestinal Disorders: No - GENITOURINARY/GYNECOLOGICAL Hx Genitourinary Disorders: Yes (RENAL FAILURE) Other/Comment: Partial Hysterectomy 2006 - PSYCHIATRIC Hx Substance Use: No - SURGICAL HISTORY Hx Cholecystectomy: Yes Hx Hysterectomy: Yes - ANESTHESIA Hx Anesthesia Reactions: No Hx Malignant Hyperthermia: No Meds Allergies/Adverse Reactions: Allergies Allergy/AdvReac Type Severity Reaction Status Date / Time No Known Allergies Allergy Verified 04/16/17 21:39 - Medications Medications: Current Medications Nicardipine HCl (Cardene Iv Premix) 20 mg in 200 mls @ 50 mls/hr IV .Q4H PRN; Protocol; 5 MG/HR PRN Reason: TITRATE PER MD ORDER Last Titration: 04/16/17 21:00 Dose: 5 mg/hr, 50 mls/hr Propofol (Diprivan) 1,000 mg in 100 mls @ 1.705 mls/hr IV .Q24H PRN; Protocol; 5 MCG/KG/MIN PRN Reason: TITRATE PER MD ORDER Last Titration: 04/16/17 18:04 Dose: 20 mcg/kg/min, 6.82 mls/hr Doxycycline Hyclate 100 mg/ (Sodium Chloride) 100 mls @ 100 mls/hr IVPB Q12 NILSA PRN Reason: Protocol Ceftriaxone Sodium (Rocephin 1 Gram Ivpb) 1 gm in 100 mls @ 100 mls/hr IVPB DAILY NILSA PRN Reason: Protocol Last Admin: 04/16/17 21:07 Dose: 100 mls/hr Insulin Human Regular (Humulin R Med) 0 units SC Q2H NILSA PRN Reason: Protocol Last Admin: 04/16/17 20:00 Dose: 5 units Pantoprazole Sodium (Protonix Inj) 40 mg IVP Q12 [facility] Last Admin: 04/16/17 21:08 Dose: 40 mg Physical Exam - Constitutional Appears: Other (Intubated, sedated) - Head Exam Additional comments: dressings in place - ENT Exam Additional comments: ET tube in place - Neck Exam Neck exam: Negative for: Meningismus - Respiratory Exam Respiratory Exam: Decreased Breath Sounds. absent: Rales - Cardiovascular Exam Cardiovascular Exam: +S1, +S2 - GI/Abdominal Exam GI & Abdominal Exam: Soft. absent: Tenderness Results - Vital Signs Recent Vital Signs: Last Vital Signs Temp 97 F L 04/16/17 18:39 Pulse 70 04/16/17 20:00 Resp 16 04/16/17 18:10 BP 130/68 04/16/17 20:00 Pulse Ox 100 04/16/17 20:00 - Labs Result Diagrams: 04/17/17 05:30 04/17/17 05:30 Labs: Laboratory Results - last 24 hr 04/16/17 04/16/17 04/16/17 17:50 17:50 17:50 WBC 8.9 D RBC 3.85 Hgb 11.1 L Hct 33.4 L MCV 86.8 MCH 28.8 MCHC 33.2 RDW 14.8 H Plt Count 210 MPV 12.8 H Neutrophils % (Manual) 86 H Band Neutrophils % 1 Lymphocytes % (Manual) 11 L Monocytes % (Manual) 1 Eosinophils % (Manual) 1 Platelet Evaluation Normal Rouleaux 2+ Sodium 145 Potassium 3.2 L Chloride 100 Carbon Dioxide 23 Anion Gap 25 H BUN 21 Creatinine 4.1 H Est GFR ( Amer) 14 Est GFR (Non-Af Amer) 12 POC Glucose (mg/dL) Random Glucose 242 H Serum Osmolality 315 H Calcium 8.8 04/16/17 04/16/17 18:00 19:51 WBC RBC Hgb Hct MCV MCH MCHC RDW Plt Count MPV Neutrophils % (Manual) Band Neutrophils % Lymphocytes % (Manual) Monocytes % (Manual) Eosinophils % (Manual) Platelet Evaluation Rouleaux Sodium Potassium Chloride Carbon Dioxide Anion Gap BUN Creatinine Est GFR ( Amer) Est GFR (Non-Af Amer) POC Glucose (mg/dL) 257 H 253 H Random Glucose Serum Osmolality Calcium Assessment & Plan - Assessment and Plan (Free Text) Plan: Assessment Systemic Inflammatory Response Syndrome probably post-surgical reaction for right intracerebral hemorrhage S/P evacuation of hematoma POD #1 R/O right lower lobe pneumonia ESRD on HD with left AV fistula HTN S/P cholecystectomy S/P appendectomy Plan Patient has been started on Rocephin and Zithromax; will ask for repeat CXR - if this does not show infiltrates, will d/c antibiotics; follow up blood cx will monitor clinically
[2017-04-17] MEDS: cefTRIAXone 1 gm 1 GM/100 ML BAG IVPB SCH (09:10)
[2017-04-17] MEDS: levETIRAcetam 1,000 MG in Sodium Chloride 0.9% 100 ML IV SCH ×2 (09:18→22:38)
--- NOTE | 2017-04-17 09:55 | CP.PCM.PN ---
Subjective - Date & Time of Evaluation Date of Evaluation: 04/17/17 Time of Evaluation: 09:30 - Subjective Subjective: Internal medicine progress note for Dr. Trista Rubin, PGY-1 Pt S & E at bedside. Per nursing, no acute events overnight. No changes in mental status, pt intubated/sedated s/p craniotomy. [facility], PRVC FiO2 30%, PEEP 5, RR 16, TV 400. Objective - Vital Signs/Intake and Output Vital Signs (last 24 hours): Temp Pulse Resp BP Pulse Ox 97.9 F 82 16 136/65 100 04/17/17 09:40 04/17/17 09:40 04/16/17 18:10 04/17/17 09:00 04/17/17 09:40 Intake and Output: 04/17/17 04/17/17 06:59 18:59 Intake Total 1819 48 Output Total 30 Balance 1789 48 - Medications Medications: Current Medications Nicardipine HCl (Cardene Iv Premix) 20 mg in 200 mls @ 50 mls/hr IV .Q4H PRN; Protocol; 5 MG/HR PRN Reason: TITRATE PER MD ORDER Last Admin: 04/17/17 06:35 Dose: 2.5 mg/hr, 25 mls/hr Propofol (Diprivan) 1,000 mg in 100 mls @ 1.705 mls/hr IV .Q24H PRN; Protocol; 5 MCG/KG/MIN PRN Reason: TITRATE PER MD ORDER Last Titration: 04/17/17 08:51 Dose: 15 mcg/kg/min, 5.115 mls/hr Doxycycline Hyclate 100 mg/ (Sodium Chloride) 100 mls @ 100 mls/hr IVPB Q12 NILSA PRN Reason: Protocol Last Admin: 04/17/17 09:20 Dose: 100 mls/hr Ceftriaxone Sodium (Rocephin 1 Gram Ivpb) 1 gm in 100 mls @ 100 mls/hr IVPB DAILY NILSA PRN Reason: Protocol Last Admin: 04/17/17 09:10 Dose: 100 mls/hr Insulin Human Regular 100 (units/ Sodium Chloride) 100 mls @ 1 mls/hr IV .Q24H PRN; Protocol; 1 UNITS/HR PRN Reason: TITRATE PER MD ORDER Last Titration: 04/17/17 09:27 Dose: 1 units/hr, 1 mls/hr Levetiracetam 1,000 mg/ Sodium (Chloride) 110 mls @ 460 mls/hr IV Q12 NILSA Last Admin: 04/17/17 09:18 Dose: 460 mls/hr Sodium Chloride (Hypertonic Saline 3%) 500 mls @ 50 mls/hr IV .Q10H NILSA Last Admin: 04/17/17 07:30 Dose: 50 mls/hr Potassium Chloride (Potassium Chloride 20 Meq/100 Ml) 20 meq in 100 mls @ 50 mls/hr IVPB ONCE ONE Stop: 04/17/17 11:49 Pantoprazole Sodium (Protonix Inj) 40 mg IVP Q12 NILSA Last Admin: 04/17/17 09:10 Dose: 40 mg - Labs Labs: 04/17/17 05:30 04/17/17 05:30 PT 14.3 Seconds (9.9-11.8) H 04/17/17 05:30 INR 1.32 (0.93-1.08) H 04/17/17 05:30 APTT 23.6 Seconds (23.7-30.8) L 04/16/17 10:56 - Head Exam Head Exam: absent: ATRAUMATIC (left parietal area with dressing in place, some sanguinous strike through) - Eye Exam Eye Exam: absent: EOMI, PERRL Pupil Exam: Fixed, Unequal. absent: Mydriatic - ENT Exam ENT Exam: Mucous Membranes Dry Additional comments: ET tube in place - Respiratory Exam Respiratory Exam: Clear to Ausculation Bilateral, NORMAL BREATHING PATTERN (On mech vent). absent: Rales, Rhonchi, Respiratory Distress - Cardiovascular Exam Cardiovascular Exam: REGULAR RHYTHM, +S1, +S2 - GI/Abdominal Exam GI & Abdominal Exam: Soft, Hypoactive Bowel Sounds. absent: Distended - Extremities Exam Extremities Exam: absent: Pedal Edema Additional comments: Left femoral TLC in place, no erythema noted - Neurological Exam Neurological Exam: absent: Alert, Awake, CN II-XII Intact, Oriented x3 - Psychiatric Exam Psychiatric exam: absent: Normal Affect, Normal Mood Additional comments: Intubated/sedated - Skin Skin Exam: Dry, Intact, Normal Color, Warm Assessment and Plan - Assessment and Plan (Free Text) Assessment: 47F w/PMH sig for IDDM, ESRD on HD (MWF) with R intracerebral hemorrhage 2/2 HTN emergency, continuing to require ICU care, poor prognosis Plan: R BG intraparenchymal bleeding w/midline shift s/p bedside crainotomy GSC 3 Intubated on MV Sedated- propofol on PRVC FiO2 30%, PEEP 5, RR 16, TV 400 Seizure precautions Aspiration precautions HOB to 30 degrees On Cardene drip Cont Keppra Maintain Na 145-150 Currently on hypertonic saline @50cc/hr Maintain INR <1.4 INR 1.32 Neuro check Q1H FU CT brain today Neurology follwing Neurosurgery following HTN emergency BP 128/62 On cardene drip Goal SBP<160 Cardio following DM On insulin drip Accuchecks NPO FU A1c Maintain euglycemia ESRD on HD BUN 25 Cr 4.5 Phos 1.6 Will replace K 3.1 from 2.9 Will wait to see if pt for HD prior to correcting K Nephro following Leukocytosis WBC 14.2 Lactate 1.4 from 1.4 FU CXR FU procalcitonin On Doxycycline On Rocephin FU blood cx ID following- January d/c ABx if CXR w/o infiltrates GI/DVT ppx SCDs TEDs Protonix Contraindications to VTE ppx 2/2 hemorrhage Dispo Cont ICU care For PICC line placement All other care as per ICU Poor prognosis DW attending Caryn, PGY-1
--- NOTE | 2017-04-17 10:05 | RAD ---
HISTORY: rule out pneumonia COMPARISON: 04/16/2017 FINDINGS: LUNGS: Probable left lower lobe infiltrate. Silhouetting of left hemidiaphragm. Retrocardiac opacity. No infiltrate elsewhere. PLEURA: No significant pleural effusion identified, no pneumothorax apparent. CARDIOVASCULAR: Endotracheal tube tip positioned 4.1 cm above the tracheal ramos. OSSEOUS STRUCTURES: No significant abnormalities. VISUALIZED UPPER ABDOMEN: Normal. OTHER FINDINGS: None. IMPRESSION: Left lower lobe infiltrate. ET tube appropriately positioned.
[2017-04-17 11:01] LABS: CALCIUM 8.9 mg/dL (8.4-10.5)
--- NOTE | 2017-04-17 12:33 | CP.PCM.PN ---
Subjective - Date & Time of Evaluation Date of Evaluation: 04/17/17 Time of Evaluation: 12:31 - Subjective Subjective: pod 1 sedated, pupils 1 mm anisocroc r>l ICP low drainage clear csf Wont present TX raise drip chamber to 15 prognosis reamains poor Objective - Vital Signs/Intake and Output Vital Signs (last 24 hours): Temp Pulse Resp BP Pulse Ox 97.9 F 82 16 136/65 100 04/17/17 09:40 04/17/17 09:40 04/17/17 10:50 04/17/17 09:00 04/17/17 10:50 Intake and Output: 04/17/17 04/17/17 06:59 18:59 Intake Total 1819 48 Output Total 30 Balance 1789 48 - Medications Medications: Current Medications Nicardipine HCl (Cardene Iv Premix) 20 mg in 200 mls @ 50 mls/hr IV .Q4H PRN; Protocol; 5 MG/HR PRN Reason: TITRATE PER MD ORDER Last Admin: 04/17/17 06:35 Dose: 2.5 mg/hr, 25 mls/hr Propofol (Diprivan) 1,000 mg in 100 mls @ 1.705 mls/hr IV .Q24H PRN; Protocol; 5 MCG/KG/MIN PRN Reason: TITRATE PER MD ORDER Last Titration: 04/17/17 08:51 Dose: 15 mcg/kg/min, 5.115 mls/hr Doxycycline Hyclate 100 mg/ (Sodium Chloride) 100 mls @ 100 mls/hr IVPB Q12 NILSA PRN Reason: Protocol Last Admin: 04/17/17 09:20 Dose: 100 mls/hr Ceftriaxone Sodium (Rocephin 1 Gram Ivpb) 1 gm in 100 mls @ 100 mls/hr IVPB DAILY NILSA PRN Reason: Protocol Last Admin: 04/17/17 09:10 Dose: 100 mls/hr Insulin Human Regular 100 (units/ Sodium Chloride) 100 mls @ 1 mls/hr IV .Q24H PRN; Protocol; 1 UNITS/HR PRN Reason: TITRATE PER MD ORDER Last Titration: 04/17/17 09:27 Dose: 1 units/hr, 1 mls/hr Levetiracetam 1,000 mg/ Sodium (Chloride) 110 mls @ 460 mls/hr IV Q12 NILSA Last Admin: 04/17/17 09:18 Dose: 460 mls/hr Sodium Chloride (Hypertonic Saline 3%) 500 mls @ 50 mls/hr IV .Q10H NILSA Last Admin: 04/17/17 07:30 Dose: 50 mls/hr Pantoprazole Sodium (Protonix Inj) 40 mg IVP Q12 NILSA Last Admin: 04/17/17 09:10 Dose: 40 mg - Labs Labs: 04/17/17 05:30 04/17/17 10:00 PT 14.3 Seconds (9.9-11.8) H 04/17/17 05:30 INR 1.32 (0.93-1.08) H 04/17/17 05:30 APTT 23.6 Seconds (23.7-30.8) L 04/16/17 10:56
--- NOTE | 2017-04-17 12:39 | CP.PCM.PN ---
Subjective - Date & Time of Evaluation Date of Evaluation: 04/17/17 Time of Evaluation: 12:35 - Subjective Subjective: Mrs. Martinez was seen and examined today at bedside in the ICU. She continues to be on propofol, intubated, with little clinical response. She is breathing over the ventilator and has normal sized, sluggishly reacting pupils. There were no acute events overnight. Objective - Vital Signs/Intake and Output Vital Signs (last 24 hours): Temp Pulse Resp BP Pulse Ox 97.9 F 82 16 136/65 100 04/17/17 09:40 04/17/17 09:40 04/17/17 10:50 04/17/17 09:00 04/17/17 10:50 Intake and Output: 04/17/17 04/17/17 06:59 18:59 Intake Total 1819 48 Output Total 30 Balance 1789 48 - Medications Medications: Current Medications Nicardipine HCl (Cardene Iv Premix) 20 mg in 200 mls @ 50 mls/hr IV .Q4H PRN; Protocol; 5 MG/HR PRN Reason: TITRATE PER MD ORDER Last Admin: 04/17/17 06:35 Dose: 2.5 mg/hr, 25 mls/hr Propofol (Diprivan) 1,000 mg in 100 mls @ 1.705 mls/hr IV .Q24H PRN; Protocol; 5 MCG/KG/MIN PRN Reason: TITRATE PER MD ORDER Last Titration: 04/17/17 08:51 Dose: 15 mcg/kg/min, 5.115 mls/hr Doxycycline Hyclate 100 mg/ (Sodium Chloride) 100 mls @ 100 mls/hr IVPB Q12 NILSA PRN Reason: Protocol Last Admin: 04/17/17 09:20 Dose: 100 mls/hr Ceftriaxone Sodium (Rocephin 1 Gram Ivpb) 1 gm in 100 mls @ 100 mls/hr IVPB DAILY NILSA PRN Reason: Protocol Last Admin: 04/17/17 09:10 Dose: 100 mls/hr Insulin Human Regular 100 (units/ Sodium Chloride) 100 mls @ 1 mls/hr IV .Q24H PRN; Protocol; 1 UNITS/HR PRN Reason: TITRATE PER MD ORDER Last Titration: 04/17/17 09:27 Dose: 1 units/hr, 1 mls/hr Levetiracetam 1,000 mg/ Sodium (Chloride) 110 mls @ 460 mls/hr IV Q12 NILSA Last Admin: 04/17/17 09:18 Dose: 460 mls/hr Sodium Chloride (Hypertonic Saline 3%) 500 mls @ 50 mls/hr IV .Q10H NILSA Last Admin: 04/17/17 07:30 Dose: 50 mls/hr Pantoprazole Sodium (Protonix Inj) 40 mg IVP Q12 NILSA Last Admin: 04/17/17 09:10 Dose: 40 mg - Labs Labs: 04/17/17 05:30 04/17/17 10:00 PT 14.3 Seconds (9.9-11.8) H 04/17/17 05:30 INR 1.32 (0.93-1.08) H 04/17/17 05:30 APTT 23.6 Seconds (23.7-30.8) L 04/16/17 10:56 - Neurological Exam Additional comments: On mild sedation, with GCS=3-4T. Pupils normal in size and sluggishly reactive , corneal reflex is present, she breaths over the ventilator. No clonus noted, no seizure activity noted. Assessment and Plan (1) ICH (intracerebral hemorrhage) Assessment & Plan: Continues to be in extremely critical condition with a poor prognosis. This was discussed with the family at length. We will continue to control cerebral edema with hypertonic saline with a goal Na of 145-155 and osmolarity < 320. Continue to control temperature to avoid hyperthermia, and maintain tight glucose control to avoid worsening edema. Will repeat CT head tomorrow for further evaluation per neurosurgery. Status: Acute
--- NOTE | 2017-04-17 13:43 | CON ---
DATE: 04/17/2017 HISTORY OF PRESENT ILLNESS: The patient is a 47-year-old woman who presented with an intracerebral bleed. She was transferred to the ICU after neurologic surgery intervention. PAST MEDICAL HISTORY: Notable for diabetes mellitus and hypertension. The family is not aware, but the patient was recommended to have a cardiac monitoring with a defibrillator vest placed for questionable reasons. No previous known myocardial infarction or heart disease according to the family. The rest of the history is unavailable. PHYSICAL EXAMINATION: GENERAL: The patient is sedated. VITAL SIGNS: Blood pressure is 147/73, heart rate is in the 80s. NECK: Negative JVD. LUNGS: Decreased breath sounds. HEART: Reveals S1, S2. EXTREMITIES: Without change. EKG: Reveals normal sinus rhythm with nonspecific ST-T changes. LABORATORY DATA: BUN and creatinine are 26/4.6. Hemoglobin is 11.2. IMPRESSION: 1. Intracerebral bleed. 2. History of hypertension. 3. History of diabetes mellitus. 4. Questionable history of ischemic cardiomyopathy which may have led to the recommendations for ventricular arrhythmia monitoring. 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 Given these findings, her hemodynamics is stable at this time. We will obtain an echocardiogram to evaluate LV function. Neeraj Moore MD
--- NOTE | 2017-04-17 14:15 | OP ---
PROCEDURE DATE: 04/16/2017 PREOPERATIVE DIAGNOSIS: Right intracerebral hemorrhage with hemo-hydrocephalus. POSTOPERATIVE DIAGNOSIS: Right intracerebral hemorrhage with hemo-hydrocephalus. OPERATIVE PROCEDURE: Left frontal ventriculostomy and right frontotemporal craniotomy, evacuation of intracerebral hematoma. SURGEON: Valente Montano MD ESTIMATED BLOOD LOSS: Less than 100 mL. COUNTS: All counts were correct. SPECIMEN: Hematoma. DESCRIPTION OF PROCEDURE: While in the emergency room, the patient's neurologic status changed. Her right pupil dilated and became less responsive. She was intubated and repeat CAT scan was done. The repeat CAT showed that she had increase in ventricular size significant for hydrocephalus and she had an increase in the size of the intracerebral hemorrhage noted before. Because of this, the risks, benefits, and alternatives of proceeding were discussed with the family and in the emergency room, a left frontal ventriculostomy was placed. The ventriculostomy was placed in the following manner. The hair was clipped and the scalp was prepped. The skin was marked just at the coronal suture approximately 2 fingerbreadths off midline, was instilled with lidocaine with epinephrine, incised sharply for approximately 3/8th of an inch. The pericranium was scrapped off the skull and a solitary twist drill was placed. The dura was then pierced with a #15 blade and the ventricular catheter was passed into the ventricle. The CSF was under moderate- to tcohiypj-[id number] pressure. The trocar was attached and tunneled down through a separate stab wound. The draining bag was attached appropriately. The incision was reapproximated with 3-0 nylon. The drain was tacked in the usual manner and a sterile dressing was applied. The patient's pupils after the procedure were now minimally anisocoric. The CSF was bloody. No specimen was sent. Sterile dressing was applied. The patient was then taken up to the operating room for formal right-sided craniotomy. Upon reaching the operating room, the patient was placed on the operating room table with head turned to the left. The reminder of the hair was clipped from the frontotemporal region and lazy S incision was marked out after prepping and draping just above what was felt to be the area of the sylvian fissure just behind the coronal suture. The incision was instilled with lidocaine with epinephrine and taken sharply through the pericranium. The superficial margin of the temporalis muscle was minimally incised and the flap was retracted back in the usual manner. Two bur holes were placed, one anterior and one posteriorly and field elevator was used to strip the dura off the cranium and the craniotome was used to turn a flap. The underlying dura was full. The dura was then opened in a curvilinear manner just above what was thought to be the area of the sylvian fissure and using combination of blunt dissection and suction, corticectomy was made using the bipolar cautery, bringing us down on to the hematoma. More specimen was sent; however, suction was used to remove as much of the hematoma as thought feasible. The hematoma cavity was irrigated out and the brain at this point was slack and away from the dura. The corticectomy cavity was checked for hemostasis. Hemostasis was obtained using combination of Gelfoam, Surgicel, Surgifoam, and bipolar cautery. After making certain all returns were clear on irrigation and that hemostasis was meticulous, the dura was then reapproximated. The brain remained slack and the dura was reapproximated with the 4-0 Nurolon. A piece of Gelfoam was placed over the exposed dura. Two Rapid Fix plates were then used to reattach the bone plate and the scalp was reapproximated 2 layers as well as the temporalis muscle with 3-0 Vicryl and skin stevenson. Sterile dressing was applied. The patient at the end of the procedure again was minimally anisocoric. She was not reversed, taken to the ICU in stable condition. After transfer to the ICU, the ICT was monitored from the ventriculostomy, it was approximately 4. The patient was to remain nonreversed. Valente Montano MD
--- NOTE | 2017-04-17 16:43 | CARD ---
APPROVED REPORT EXAM: Two-dimensional and M-mode echocardiogram with Doppler and color Doppler. INDICATION LVFX 2D DIMENSIONS Left Atrium (2D)4.1 (1.6-4.0cm)IVSd1.0 (0.7-1.1cm) LVDd4.5 (3.9-5.9cm)PWd1.3 (0.7-1.1cm) LVDs3.6 (2.5-4.0cm)FS (%) 19.5 % LVEF (%)35.0 (>50%) M-Mode DIMENSIONS Aortic Root2.60 (2.2-3.7cm)Aortic Cusp Exc.1.70 (1.5-2.0cm) Aortic Valve AoV Peak Bfwirgrx358.0cm/Baudilio Peak GR.14mmHg Mitral Valve MV E Ijztgchb33.9cm/sMV A Hcclvzwk72.5cm/sE/A ratio1.1 TDI Lateral E' Peak V6.92cm/sMedial E' Peak V4.97cm/sE/Lateral E'12.7 E/Medial E'17.7 Pulmonary Valve PV Peak Prmatnoy31.0cm/sPV Peak Grad.2mmHg Tricuspid Valve TR Peak [id number]/sRAP [id number] Peak Gr.24mmHg [id number] LEFT VENTRICLE The left ventricle is normal size. There is normal left ventricular wall thickness. The systolic function is severely impaired. There is global hypokinesis of the left ventricle. Transmitral Doppler flow pattern is Grade II-pseudonormal filling dynamics. LV Spontaneous contrast is noted consistent with the low flow state. RIGHT VENTRICLE The right ventricle is normal size. There is normal right ventricular wall thickness. The right ventricular systolic function is normal. ATRIA The left atrium size is normal. The right atrium size is normal. AORTIC VALVE The aortic valve is normal in structure. No aortic regurgitation is present. MITRAL VALVE The mitral valve is normal in structure. Mitral regurgitation is mild. TRICUSPID VALVE There is mild pulmonary hypertension. GREAT VESSELS The aortic root is normal in size. The IVC is normal in size and collapses >50% with inspiration. PERICARDIAL EFFUSION There is a small circumferential pericardial effusion. <Conclusion> The left ventricle is normal size. There is normal left ventricular wall thickness. The systolic function is severely impaired. There is global hypokinesis of the left ventricle. LV Spontaneous contrast is noted consistent with the low flow state. Mitral regurgitation is mild. There is mild pulmonary hypertension. There is a small circumferential pericardial effusion.
--- NOTE | 2017-04-17 17:40 | CON ---
DATE: This is a re-dictation of a dictation that was lost in the dictation system at [facility]. HISTORY OF PRESENT ILLNESS: Ms. Martinez is a 47-year-old Black female. She was seen in the emergency room. She was noted to have acute onset of a left hemiplegia and dialysis, was taken to the emergency room. CT scan was done showing a fairly large basal ganglia hemorrhage on the right with hemicephalus in the ventricles including the fourth ventricle. There is no evidence of hydrocephalus. She is a history of diabetes, hypertension, renal failure, on dialysis. Rest of the medical record was reviewed for family history, social history, and review of system. PHYSICAL EXAMINATION: Her examination at that time found that she was awake and alert. She was talking. Her pupils were equal and reactive. She had a right gaze preference. She was flaccid on the left side arm and leg, could not move her arm or leg even to noxious stimulation. She appreciated sensation in all four limbs and her reflexes were all throughout. At that time, it was felt that she could be managed medically with hypertonic saline or Mannitol as per neurology and observation. A repeat CAT scan was ordered for the next morning and she was to be sent to the ICU for observation. It was explained to her that if her neurologic status change, she might need either a ventriculostomy or a craniotomy. Valente Montano MD
[2017-04-17 18:13] LABS: CALCIUM 9.2 mg/dL (8.4-10.5)
[2017-04-17 20:26] VITALS: O2SAT 100
--- NOTE | 2017-04-17 20:34 | PN ---
SUBJECTIVE: The patient is currently seen in CCU, bed 1. She remains on ventilator and on Diprivan drip. She is status post craniotomy for her acute hemorrhagic stroke. The patient's last dialysis was yesterday. MEDICATIONS: Medication list reviewed. The patient is currently on nicardipine drip p.r.n. basis, Diprivan, doxycycline, hypertonic saline 50 mL an hour, insulin drip, levetiracetam, Protonix, Rocephin. OBJECTIVE: INTAKE/OUTPUT: Intake of 1935 and output 30 mL. VITAL SIGNS: Blood pressure is 136/65, temperature is 97.9, pulse of 82, respiratory rate of 16 with a oxygen saturation of 100%. The patient is currently on a ventilator. Eyes are closed. The patient is in a medically-induced coma. HEENT: Face is puffy. Eyes closed. NECK: No neck vein distention. CHEST: Decreased breath sounds at the bases. No rales, no rhonchi, no wheezing. CARDIOVASCULAR: Shows an S1 and S2 which are regular. No S3, no S4, no rub, no murmurs. ABDOMEN: Soft, nondistended. Bowel sounds are normal. No masses. EXTREMITIES: Show multiple lines in the right upper extremity and is puffy. The patient has an arterial line in her left upper extremity with a working AV fistula left upper arm. NEUROLOGIC: Difficult to obtain as the patient is in medically-induced coma. According to the staff, the patient did have pupils which were equal and reactive to light, significantly improved post craniotomy and evacuation of her intracerebral bleed. LAB DATA AND IMAGING: Last head CT done showed intraparenchymal hemorrhage centered at the right basal ganglia extending into the anterior medial right temporal lobe and into the barroso radiata region. Intraventricular hemorrhage into the ventricles. Obstructive hydrocephalus noted. Chest x-ray from today showed probable left lower lobe infiltrate. ET tube in place. Labs: CBC; white blood cell count today 14.2, hemoglobin is 11.2 with a platelet count of 243,000. Coags: PT 14.3 with a PTT of 23.6. Blood gas today; pO2 105, pC02 of 29 with a pH of 7.57. Chemistries today showed a sodium of 148, potassium 3.2, chloride 111. CO2 of 26, BUN of 26 with a creatinine of 4.6. Glucose is 131. Calcium 8.9, phosphorus earlier today was 1.6. Magnesium was 1.9. Albumin 2.8. Liver enzymes are normal. Alkaline phosphatase mildly elevated at 213. ASSESSMENT: 1. Acute hemorrhagic stroke with an ICH score of 4 which usually leads to a poor prognosis. Discussed with ICU/TCU staff stroke team. The patient will be maintained on 3% saline to decrease cerebral edema. There is a high likely casitllo given her uremic platelets that she could bleed again. As per neurosurgery, plan right now is supportive. No further surgery anticipated. 2. History of end-stage renal disease. The patient will receive her routine dialysis tomorrow. We will try and keep her serum sodium levels elevated to decrease cerebral edema. We will dialyze the patient on a sodium bath of 150 and a 3.0 potassium bath for her mild hypokalemia. We will try and ultrafiltrate 1.5 to 2 L as tolerated. 3. History of hypertension. Blood pressure right now was well controlled. When the patient came into the hospital, the time of her cerebrovascular accident, the patient had systolics ranging from 185 to 203, diastolics ranging from 105 to 119. She is currently on a p.r.n. Cardene drip. 4. Cal-ghrpqdp-ubijapaid diabetes mellitus. Glucose is controlled. The patient remains on insulin therapy as noted above. 5. History of secondary hyperparathyroidism. Phosphorous level is low. The patient is n.p.o. No binders are indicted. PLAN: 1. Discussed with ICU/CCU staff, it business process architect, stroke team in detail. 2. We will support the patient with dialysis tomorrow. Specific dialysis orders pertinent to her were given to the dialysis staff by myself verbally. 3. Discussed with family in detail. Her prognosis is poor given her ICH score o 4. The patient's family is aware of this. 4. Continue Cardene drip on an as-needed basis. 5. Continue 3% saline to decrease cerebral edema. 6. Continue to maintain the patient in a medically-induced coma on Diprivan drip. Greater then 35 minutes spent in the care of this critically ill patient. Rome Huitron MD
[2017-04-17 22:42] LABS: ALB/GLOB RATIO 0.8 (1.1-1.8); ALBUMIN 2.6 g/dL (3.0-4.8); CALCIUM 9.1 mg/dL (8.4-10.5)
--- NOTE | 2017-04-17 23:18 | CP.PCM.PN ---
<Roberto Carlos Kelly - Last Filed: 04/17/17 23:40> Subjective - Date & Time of Evaluation Date of Evaluation: 04/17/17 Time of Evaluation: 08:00 - Subjective Subjective: ICU Progress Note Pt was seen and examined at bedside. Pt is sedated and intubated s/p craniectomy and decompression. No acute or adverse events overnight as per nursing staff. ICP monitoring in place, a-line with good waveform on monitor. Objective - Vital Signs/Intake and Output Vital Signs (last 24 hours): Temp Pulse Resp BP Pulse Ox 97.3 F L 78 16 136/70 100 04/17/17 20:20 04/17/17 20:20 04/17/17 10:50 04/17/17 23:16 04/17/17 20:20 Intake and Output: 04/17/17 04/18/17 18:59 06:59 Intake Total 1060.0 195 Output Total 35 Balance 1025.0 195 - Medications Medications: Current Medications Nicardipine HCl (Cardene Iv Premix) 20 mg in 200 mls @ 50 mls/hr IV .Q4H PRN; Protocol; 5 MG/HR PRN Reason: TITRATE PER MD ORDER Last Admin: 04/17/17 22:15 Dose: 1 mg/hr, 10 mls/hr Propofol (Diprivan) 1,000 mg in 100 mls @ 1.705 mls/hr IV .Q24H PRN; Protocol; 5 MCG/KG/MIN PRN Reason: TITRATE PER MD ORDER Last Titration: 04/17/17 19:00 Dose: 15 mcg/kg/min, 5.115 mls/hr Doxycycline Hyclate 100 mg/ (Sodium Chloride) 100 mls @ 100 mls/hr IVPB Q12 NILSA PRN Reason: Protocol Last Admin: 04/17/17 22:35 Dose: 100 mls/hr Ceftriaxone Sodium (Rocephin 1 Gram Ivpb) 1 gm in 100 mls @ 100 mls/hr IVPB DAILY NILSA PRN Reason: Protocol Last Admin: 04/17/17 09:10 Dose: 100 mls/hr Insulin Human Regular 100 (units/ Sodium Chloride) 100 mls @ 1 mls/hr IV .Q24H PRN; Protocol; 1 UNITS/HR PRN Reason: TITRATE PER MD ORDER Last Titration: 04/17/17 19:22 Dose: 0.5 units/hr, 0.5 mls/hr Levetiracetam 1,000 mg/ Sodium (Chloride) 110 mls @ 460 mls/hr IV Q12 [facility] Last Admin: 04/17/17 22:38 Dose: 460 mls/hr Sodium Chloride (Hypertonic Saline 3%) 500 mls @ 50 mls/hr IV .Q10H [facility] Last Admin: 04/17/17 21:30 Dose: 50 mls/hr Pantoprazole Sodium (Protonix Inj) 40 mg IVP Q12 [facility] Last Admin: 04/17/17 22:40 Dose: 40 mg - Labs Labs: 04/17/17 05:30 04/17/17 22:26 PT 14.3 Seconds (9.9-11.8) H 04/17/17 05:30 INR 1.32 (0.93-1.08) H 04/17/17 05:30 APTT 23.6 Seconds (23.7-30.8) L 04/16/17 10:56 - Constitutional Appears: No Acute Distress - Head Exam Additional comments: bandage to head in place CDI - Eye Exam Pupil Exam: PERRL (sluggish) - ENT Exam ENT Exam: Mucous Membranes Moist - Respiratory Exam Respiratory Exam: Clear to Ausculation Bilateral. absent: Rales, Rhonchi Additional comments: on mech vent - Cardiovascular Exam Cardiovascular Exam: REGULAR RHYTHM, +S1, +S2. absent: Murmur - GI/Abdominal Exam GI & Abdominal Exam: Soft, Normal Bowel Sounds. absent: Tenderness - Extremities Exam Extremities Exam: Full ROM, Normal Capillary Refill, Normal Inspection. absent : Joint Swelling, Pedal Edema - Neurological Exam Neurological Exam: absent: Alert, Awake - Skin Skin Exam: Dry, Intact, Normal Color, Warm Assessment and Plan - Assessment and Plan (Free Text) Assessment: 47Y F with PMH IDDM, ESRD on HD (MWF), HTN who was came to ED from HD admitted for R intracerebral hemorrhage secondary to hypertensive emergency, admitted to the ICU for close monitoring for further deterioration s/p craniectomy with decompression POD1. Prognosis is guarded. Neuro: Intracerebral hemorrhage 2/2 HTN emergency neuro checks q1h seizure precaution Neurology, Dr. Zavaleta consulted, Following recommended control cerebral edema with hypertonic saline with a goal Na of 145-155 and osmolarity < 320. Will repeat CT head tomorrow for further evaluation per neurosurgery, Dr. Montano Continue to control temperature to avoid hyperthermia Pulm: Mechanical Intubation 40/5/16/400 maintain 02 sat >90% protective lung strategy, HOB >30 pulm toileting aspiration precaution, HOB elevated CVS: Cardene drip 5mg/hr titrated to maintain sbp 120-130 IVF hypertonic saline with a goal Na of 145-155 continue to monitor GI: NPO GI PPx Renal: ESRD on HD Nephrology Consulted IVF hypertonic saline with a goal Na of 145-155 Heme maintain INR <1.4 Endo: maintain euglycemia 140-180 maintain tight glucose control to avoid worsening edema GI ppx: Protonix DVT ppx: SCDs. <Aditya Angeles - Last Filed: 04/18/17 11:35> Objective - Vital Signs/Intake and Output Vital Signs (last 24 hours): Temp Pulse Resp BP Pulse Ox 97.9 F 80 14 147/78 100 04/18/17 09:40 04/18/17 09:40 04/18/17 08:11 04/18/17 08:00 04/18/17 09:40 Intake and Output: 04/18/17 04/18/17 06:59 18:59 Intake Total 1213 35 Output Total 21 Balance 1192 35 - Medications Medications: Current Medications Nicardipine HCl (Cardene Iv Premix) 20 mg in 200 mls @ 50 mls/hr IV .Q4H PRN; Protocol; 5 MG/HR PRN Reason: TITRATE PER MD ORDER Last Titration: 04/18/17 06:00 Dose: 1 mg/hr, 10 mls/hr Propofol (Diprivan) 1,000 mg in 100 mls @ 1.705 mls/hr IV .Q24H PRN; Protocol; 5 MCG/KG/MIN PRN Reason: TITRATE PER MD ORDER Last Titration: 04/18/17 08:30 Dose: 0 mcg/kg/min, 0 mls/hr Doxycycline Hyclate 100 mg/ (Sodium Chloride) 100 mls @ 100 mls/hr IVPB Q12 NILSA PRN Reason: Protocol Last Admin: 04/18/17 09:13 Dose: 100 mls/hr Ceftriaxone Sodium (Rocephin 1 Gram Ivpb) 1 gm in 100 mls @ 100 mls/hr IVPB DAILY NILSA PRN Reason: Protocol Last Admin: 04/18/17 09:12 Dose: 100 mls/hr Insulin Human Regular 100 (units/ Sodium Chloride) 100 mls @ 1 mls/hr IV .Q24H PRN; Protocol; 1 UNITS/HR PRN Reason: TITRATE PER MD ORDER Last Titration: 04/18/17 11:00 Dose: 0.5 units/hr, 0.5 mls/hr Levetiracetam 1,000 mg/ Sodium (Chloride) 110 mls @ 460 mls/hr IV Q12 NILSA Last Admin: 04/18/17 09:13 Dose: 460 mls/hr Sodium Chloride (Hypertonic Saline 3%) 500 mls @ 30 mls/hr IV .[id number] NILSA Last Admin: 04/18/17 00:30 Dose: 30 mls/hr Pantoprazole Sodium (Protonix Inj) 40 mg IVP Q12 NILSA Last Admin: 04/18/17 09:08 Dose: 40 mg - Labs Labs: 04/18/17 05:45 04/18/17 10:30 PT 13.5 Seconds (9.9-11.8) H 04/18/17 05:45 INR 1.25 (0.93-1.08) H 04/18/17 05:45 APTT 23.6 Seconds (23.7-30.8) L 04/16/17 10:56 Attending/Attestation - Attestation I have personally seen and examined this patient.: Yes I have fully participated in the care of the patient.: Yes I have reviewed all pertinent clinical information, including history, physical exam and plan: Yes Notes (Text): 04/18/17 11:29 47 yo female with devastating ICH and inraventricular extension, s/p EVD and craniotomy, intubated, on propofol, osmotic therapy. Neurosurgery and Neuro follow ups appreciated. Will continue vent support. DVT/GI prophylaxis, BP control Na 150-155, euvolemia/euglycemia/normothermia ccm time 40 min
[2017-04-18] MEDS: Sodium Chloride 3% 500 ML IV SCH (00:30)
[2017-04-18 02:58] LABS: CALCIUM 9.2 mg/dL (8.4-10.5)
[2017-04-18] MEDS: Propofol 10 mg/ml 1,000 MG/100 ML VIAL IV PRN (04:07)
[2017-04-18] MEDS: Insulin Regular 100 UNITS in Sodium Chloride 0.9% 99 ML IV PRN ×2 (04:41→16:46)
[2017-04-18 06:07] LABS: INR 1.25 (0.93-1.08); PROTHROMBIN TIME 13.5 Seconds (9.9-11.8)
[2017-04-18 06:14] LABS: ALB/GLOB RATIO 0.8 (1.1-1.8); ALBUMIN 2.6 g/dL (3.0-4.8); BILIRUBIN,DIRECT 0.9 mg/dL (0.0-0.4); CALCIUM 9.2 mg/dL (8.4-10.5); MAGNESIUM 1.9 mg/dL (1.7-2.2)
[2017-04-18 06:18] LABS: ARTERIAL BLOOD GAS HCO3 23.9 mmol/L (21-28); ARTERIAL BLOOD GAS HEMOGLOBIN 10.9 g/dL (11.7-17.4); ARTERIAL BLOOD GAS O2 CAPACITY 15.1 mL/dl (16-24); ARTERIAL BLOOD GAS O2 CONTENT 14.9 ML/dl (15-23); ARTERIAL BLOOD GAS PCO2 28 mm/Hg (35-45); ARTERIAL BLOOD GAS PH 7.54 (7.35-7.45); ARTERIAL BLOOD GAS TCO2 24.8 mmol.L (22-28)
[2017-04-18 06:18] LABS: BASO # 0.01 K/mm3 (0.0-2.0); BASO % 0.1 % (0.0-3.0); GRAN # 15.67 (1.4-6.5); GRAN % 87.6 % (50.0-68.0); HEMOGLOBIN 10.7 g/dL (12.0-16.0); LYMPH # 1.2 (1.2-3.4); LYMPH % 6.9 % (22.0-35.0); MEAN CELL VOLUME 86.3 fl (80.0-105.0); MEAN CORPUSCULAR HEMOGLOBIN 29.2 pg (25.0-35.0); MEAN CORPUSCULAR HGB CONC 33.9 g/dl (31.0-37.0); MEAN PLATELET VOLUME 12.5 fl (7.0-11.0); MONO % 5.4 % (1.0-6.0); PLATELET COUNT 230 10^3/uL (120.0-450.0); RBC 3.66 10^6/uL (3.5-6.1); RED CELL DISTRIBUTION WIDTH 15.9 % (11.5-14.5); WHITE BLOOD COUNT 17.9 10^3/ul (4.5-11.0)
--- NOTE | 2017-04-18 07:16 | CP.PCM.PN ---
Subjective - Date & Time of Evaluation Date of Evaluation: 04/18/17 Time of Evaluation: 07:13 - Subjective Subjective: Medicine Progress Note for Dr. Richard Moctezuma, PGY2 Patient seen and examined at bedside. As per nursing, there were no acute overnight events. The patient is intubated and sedated. ROS could no be obtained. Objective - Vital Signs/Intake and Output Vital Signs (last 24 hours): Temp Pulse Resp BP Pulse Ox 97.3 F L 78 16 129/66 100 04/17/17 20:20 04/18/17 04:00 04/17/17 10:50 04/18/17 06:53 04/17/17 20:20 Intake and Output: 04/18/17 04/18/17 06:59 18:59 Intake Total 1213 Output Total 21 Balance 1192 - Medications Medications: Current Medications Nicardipine HCl (Cardene Iv Premix) 20 mg in 200 mls @ 50 mls/hr IV .Q4H PRN; Protocol; 5 MG/HR PRN Reason: TITRATE PER MD ORDER Last Titration: 04/18/17 06:00 Dose: 1 mg/hr, 10 mls/hr Propofol (Diprivan) 1,000 mg in 100 mls @ 1.705 mls/hr IV .Q24H PRN; Protocol; 5 MCG/KG/MIN PRN Reason: TITRATE PER MD ORDER Last Admin: 04/18/17 04:07 Dose: 15 mcg/kg/min, 5.115 mls/hr Doxycycline Hyclate 100 mg/ (Sodium Chloride) 100 mls @ 100 mls/hr IVPB Q12 NILSA PRN Reason: Protocol Last Admin: 04/17/17 22:35 Dose: 100 mls/hr Ceftriaxone Sodium (Rocephin 1 Gram Ivpb) 1 gm in 100 mls @ 100 mls/hr IVPB DAILY NILSA PRN Reason: Protocol Last Admin: 04/17/17 09:10 Dose: 100 mls/hr Insulin Human Regular 100 (units/ Sodium Chloride) 100 mls @ 1 mls/hr IV .Q24H PRN; Protocol; 1 UNITS/HR PRN Reason: TITRATE PER MD ORDER Last Titration: 04/18/17 06:20 Dose: 1 units/hr, 1 mls/hr Levetiracetam 1,000 mg/ Sodium (Chloride) 110 mls @ 460 mls/hr IV Q12 [facility] Last Admin: 04/17/17 22:38 Dose: 460 mls/hr Sodium Chloride (Hypertonic Saline 3%) 500 mls @ 30 mls/hr IV .[id number] [facility] Last Admin: 04/18/17 00:30 Dose: 30 mls/hr Pantoprazole Sodium (Protonix Inj) 40 mg IVP Q12 [facility] Last Admin: 04/17/17 22:40 Dose: 40 mg - Labs Labs: 04/18/17 05:45 04/18/17 02:30 PT 13.5 Seconds (9.9-11.8) H 04/18/17 05:45 INR 1.25 (0.93-1.08) H 04/18/17 05:45 APTT 23.6 Seconds (23.7-30.8) L 04/16/17 10:56 - Constitutional Appears: No Acute Distress - Head Exam Head Exam: NORMAL INSPECTION, NORMOCEPHALIC Additional comments: Drain on L parietal side. Dressing clean, dry, intact. - Eye Exam Additional comments: R pupil 4mm- sluggish L pupil 3mm sluggish Both eyes edematous. Periorbital edema on R eye. - ENT Exam ENT Exam: Mucous Membranes Moist - Respiratory Exam Respiratory Exam: Rales, Rhonchi (on L ), NORMAL BREATHING PATTERN. absent: Wheezes - Cardiovascular Exam Cardiovascular Exam: REGULAR RHYTHM, +S1, +S2. absent: Gallop, Rubs, Murmur - GI/Abdominal Exam GI & Abdominal Exam: Soft, Normal Bowel Sounds. absent: Rigid, Tenderness, Mass , Rebound - Extremities Exam Extremities Exam: Pedal Edema Additional comments: Diffuse edema on all 4 extremities - Neurological Exam Neurological Exam: CN II-XII Intact Additional comments: + Gag reflex, + dolls eyes, + babinski on R and L No withdrawal to pain stimuli Assessment and Plan - Assessment and Plan (Free Text) Assessment: This is a 47Y F with PMH IDDM, ESRD on HD (MWF), HTN who was came to ED from HD admitted for R intracerebral hemorrhage secondary to hypertensive emergency. Pt is s/p Crainiotomy on L POD#2. Plan: 1. Intracerebral hemorrhage - secondary to hypertensive emergency - s/p Crainiotomy POD#2 - GCS 3 - Pt intubated on PRVC 400/16/5/30% - Sedated on Propofol - will be held as per neurosurg - Neuro and neurosurgery consulted- recs appreciated - neuro checks q1h - Keppra IV- continue seizure precaution - on Cardene drip- Maintain SBP 120-130 - maintain INR <1.4 - Maintain normothermia - On Hypertonic saline @30/hr - Maintain Na: 145-150, Osm <320 - Maintain Euglycemia 140-180 2. HCAP - afebrile, leukocytosis increasing - CXR showed questionable LLL pneumonia, will repeat CXR - On Doxy and Rocephin - ID consulted- recs appreciated - Blood culture negative x 2 - Procal high 3. HTN Emergency - Cardene drip and Propofol - Propofol will be held - Goal SBP between 120-130 4. DM - On insulin drip - Maintain blood glucose 140-180 - Fingerstick q1h - HgbA1c: 8.3 5. ESRD on HD - Nephro consulted- recs appreciated - HD as per nephro - Pt edematous, Cr increased to 5.4 6. CHF - Echo showed EF 35% with severe LV dysfunction - strict I&O - HOB elevated - Cardio consulted- recs appreciated GI ppx: Protonix DVT ppx: SCDs. No anticoagulants due to active bleed Dispo: Prognosis is guarded. Will consult palliative care. Case seen, discussed and reviewed with attending. Lila Moctezuma PGY2
--- NOTE | 2017-04-18 08:27 | PN ---
DATE: 04/18/2017 SUBJECTIVE: The patient remains sedated. OBJECTIVE: VITAL SIGNS: Blood pressure is 129/76, heart rates is stable. NECK: Negative JVD. LUNGS: Without rales. HEART: S1 and S1. EXTREMITIES: Without edema. LABORATORY DATA: Laboratory includes an echocardiogram which reveals an ejection fraction of 35%. There is mild pulmonary hypertension. There is a small pericardial effusion. IMPRESSION: 1. Intracerebral bleed. 2. Hypertension. 3. Diabetes mellitus. 4. Xioavgxw-dk-zgcsaz cardiomyopathy. Given these findings, the patient is hemodynamically stable so far. We will continue neurosurgical followup. Neeraj Moore MD
--- NOTE | 2017-04-18 08:51 | CP.PCM.PN ---
Subjective - Date & Time of Evaluation Date of Evaluation: 04/18/17 Time of Evaluation: 08:35 - Subjective Subjective: Patient just came from CT scan - still intubated and minimally responsive. No fevers overnight. Objective - Vital Signs/Intake and Output Vital Signs (last 24 hours): Temp Pulse Resp BP Pulse Ox 97.3 F L 78 16 131/66 100 04/17/17 20:20 04/18/17 04:00 04/17/17 10:50 04/18/17 06:00 04/17/17 20:20 Intake and Output: 04/17/17 04/18/17 18:59 06:59 Intake Total 1060.0 262 Output Total 35 Balance 1025.0 262 - Medications Medications: Current Medications Nicardipine HCl (Cardene Iv Premix) 20 mg in 200 mls @ 50 mls/hr IV .Q4H PRN; Protocol; 5 MG/HR PRN Reason: TITRATE PER MD ORDER Last Titration: 04/18/17 06:00 Dose: 1 mg/hr, 10 mls/hr Propofol (Diprivan) 1,000 mg in 100 mls @ 1.705 mls/hr IV .Q24H PRN; Protocol; 5 MCG/KG/MIN PRN Reason: TITRATE PER MD ORDER Last Admin: 04/18/17 04:07 Dose: 15 mcg/kg/min, 5.115 mls/hr Doxycycline Hyclate 100 mg/ (Sodium Chloride) 100 mls @ 100 mls/hr IVPB Q12 NILSA PRN Reason: Protocol Last Admin: 04/17/17 22:35 Dose: 100 mls/hr Ceftriaxone Sodium (Rocephin 1 Gram Ivpb) 1 gm in 100 mls @ 100 mls/hr IVPB DAILY NILSA PRN Reason: Protocol Last Admin: 04/17/17 09:10 Dose: 100 mls/hr Insulin Human Regular 100 (units/ Sodium Chloride) 100 mls @ 1 mls/hr IV .Q24H PRN; Protocol; 1 UNITS/HR PRN Reason: TITRATE PER MD ORDER Last Titration: 04/18/17 05:15 Dose: 1.5 units/hr, 1.5 mls/hr Levetiracetam 1,000 mg/ Sodium (Chloride) 110 mls @ 460 mls/hr IV Q12 [facility] Last Admin: 04/17/17 22:38 Dose: 460 mls/hr Sodium Chloride (Hypertonic Saline 3%) 500 mls @ 30 mls/hr IV .[id number] [facility] Last Admin: 04/18/17 00:30 Dose: 30 mls/hr Pantoprazole Sodium (Protonix Inj) 40 mg IVP Q12 [facility] Last Admin: 04/17/17 22:40 Dose: 40 mg - Labs Labs: 04/17/17 05:30 04/18/17 02:30 PT 14.3 Seconds (9.9-11.8) H 04/17/17 05:30 INR 1.32 (0.93-1.08) H 04/17/17 05:30 APTT 23.6 Seconds (23.7-30.8) L 04/16/17 10:56 - Constitutional Appears: Other (Intubated) - Head Exam Additional comments: dressings in place - ENT Exam Additional comments: ET tube in place - Respiratory Exam Respiratory Exam: Decreased Breath Sounds, Rales (scattered) - Cardiovascular Exam Cardiovascular Exam: +S1, +S2 - GI/Abdominal Exam GI & Abdominal Exam: Soft. absent: Tenderness Assessment and Plan - Assessment and Plan (Free Text) Plan: Assessment Systemic Inflammatory Response Syndrome probably post-surgical reaction for right intracerebral hemorrhage S/P evacuation of hematoma POD #2 consider left lower lobe pneumonia ESRD on HD with left AV fistula HTN S/P cholecystectomy S/P appendectomy Plan continue Rocephin and Doxycycline day 2; repeat CXR shows possible left lower infiltrate and opacity - follow up blood cx results will continue to monitor clinically
--- NOTE | 2017-04-18 09:08 | CT ---
PROCEDURE: CT HEAD WITHOUT CONTRAST. HISTORY: re-eval code stroke COMPARISON: 04/16/2017 TECHNIQUE: Axial computed tomography images were obtained through the head/brain without intravenous contrast. Radiation dose: Total exam DLP = 689 mGy-cm. This CT exam was performed using one or more of the following dose reduction techniques: Automated exposure control, adjustment of the mA and/or kV according to patient size, and/or use of iterative reconstruction technique. FINDINGS: HEMORRHAGE: The prior large right sided intraparenchymal hemorrhage is similar along its mid to inferior aspect. Along the superior aspect some evacuation and replacement of a large gas-filled tech cavity this patient has undergone a right craniotomy is noted. Along the posterior most right lateral aspect of this interval gas-filled evacuate Ing at postsurgical cavity a 1.6 cm hypodensity over the right cerebral cortex here is noted a small 1 cm hemorrhagic focus here is also noted -as an interval change. The right cerebral edema is grossly similar. The leftward midline shift appears this slightly less now ; now the buffered midline shift is approximately at 10 to 11 mm. The hemorrhage in the right lateral ventricle which is part of the midline shift is renoted. The this hemorrhages in the 3rd ventricle as it was previously and the 4th ventricular blood is similar in appearance as well. The left intraventricular blood has increased a large air-fluid level in the posterior left lateral ventricle is now noted. Size of the left lateral ventricle is similar to perhaps minimally increased. An interval left frontal parietal calvarial shunt has been placed -the ventricular shunt tip projects in the posterior lateral ventricle. An interval 9 to 10 mm left cerebral cortical very shunt hematoma is noted. This interval right control room agent soft tissue edema interval right screen the ectomy changes noted. The right intra cerebral parenchymal hemorrhage also advised a right middle cranial fossa as it did before. The amount of blood and/or small right temporal horn is similar in appearance. The left temporal horn is asymmetrically dilated and it is similar to perhaps slightly increased in size since the prior exam-trapped left temporal horn is a consideration. -this leftward midline shift now approximately 10 to 11 mm shift BRAIN: As above VENTRICLES: Intraventricular blood and hydrocephalus-detailed above CALVARIUM: Interval right craniotomy. Interval left shunt insertion PARANASAL SINUSES: Unremarkable as visualized. No significant inflammatory changes. MASTOID AIR CELLS: Unremarkable as visualized. No inflammatory changes. OTHER FINDINGS: None. IMPRESSION: Large and extensive right intracranial hemorrhage -mostly right intra cerebral with intraventricular blood and hydrocephalus. Interval right craniotomy with partial intra cerebral hematoma evacuation -superior aspect-postop gas cavity created - other findings as above. The associated mass effect and surrounding edema persists. The degree of leftward midline shift appears very slightly decreased. The left temporal horn and left lateral ventricular dilatation are similar to perhaps slightly increased. Left shunt tube insertion with tip in posterior left lateral ventricle. Small left perishunt cerebral cortical hematoma .
[2017-04-18] MEDS: cefTRIAXone 1 gm 1 GM/100 ML BAG IVPB SCH (09:12)
[2017-04-18] MEDS: levETIRAcetam 1,000 MG in Sodium Chloride 0.9% 100 ML IV SCH ×2 (09:13→21:47)
--- NOTE | 2017-04-18 09:55 | CP.PCM.PN ---
Subjective - Date & Time of Evaluation Date of Evaluation: 04/18/17 Time of Evaluation: 09:50 - Subjective Subjective: pt is off propofol for about 1 hr she is anisocoric r>L non- reactive minimal oulocephalics no corneal no gag spont clonic motions in legs left > right ICP low normal with good wave Ventriculostomy working CT shows good amount of hematoma removed but shift is greateer, drain in vent but vents still enlarged probably due to caked blood AT this time prognosis remains very poor ordered the propofol be d/courtney, all other tx to remain will eval after completly off the propofol, but unlikely to kendal any significant improvement Objective - Vital Signs/Intake and Output Vital Signs (last 24 hours): Temp Pulse Resp BP Pulse Ox 97.9 F 80 14 147/78 100 04/18/17 09:40 04/18/17 09:40 04/18/17 08:11 04/18/17 08:00 04/18/17 09:40 Intake and Output: 04/18/17 04/18/17 06:59 18:59 Intake Total 1213 32 Output Total 21 Balance 1192 32 - Medications Medications: Current Medications Nicardipine HCl (Cardene Iv Premix) 20 mg in 200 mls @ 50 mls/hr IV .Q4H PRN; Protocol; 5 MG/HR PRN Reason: TITRATE PER MD ORDER Last Titration: 04/18/17 06:00 Dose: 1 mg/hr, 10 mls/hr Propofol (Diprivan) 1,000 mg in 100 mls @ 1.705 mls/hr IV .Q24H PRN; Protocol; 5 MCG/KG/MIN PRN Reason: TITRATE PER MD ORDER Last Titration: 04/18/17 08:30 Dose: 0 mcg/kg/min, 0 mls/hr Doxycycline Hyclate 100 mg/ (Sodium Chloride) 100 mls @ 100 mls/hr IVPB Q12 NILSA PRN Reason: Protocol Last Admin: 04/18/17 09:13 Dose: 100 mls/hr Ceftriaxone Sodium (Rocephin 1 Gram Ivpb) 1 gm in 100 mls @ 100 mls/hr IVPB DAILY NILSA PRN Reason: Protocol Last Admin: 04/18/17 09:12 Dose: 100 mls/hr Insulin Human Regular 100 (units/ Sodium Chloride) 100 mls @ 1 mls/hr IV .Q24H PRN; Protocol; 1 UNITS/HR PRN Reason: TITRATE PER MD ORDER Last Titration: 04/18/17 08:00 Dose: 1 units/hr, 1 mls/hr Levetiracetam 1,000 mg/ Sodium (Chloride) 110 mls @ 460 mls/hr IV Q12 NILSA Last Admin: 04/18/17 09:13 Dose: 460 mls/hr Sodium Chloride (Hypertonic Saline 3%) 500 mls @ 30 mls/hr IV .[id number] NILSA Last Admin: 04/18/17 00:30 Dose: 30 mls/hr Pantoprazole Sodium (Protonix Inj) 40 mg IVP Q12 NILSA Last Admin: 04/18/17 09:08 Dose: 40 mg - Labs Labs: 04/18/17 05:45 04/18/17 05:45 PT 13.5 Seconds (9.9-11.8) H 04/18/17 05:45 INR 1.25 (0.93-1.08) H 04/18/17 05:45 APTT 23.6 Seconds (23.7-30.8) L 04/16/17 10:56
[2017-04-18 11:00] LABS: CALCIUM 9.3 mg/dL (8.4-10.5)
[2017-04-18] MEDS: Nicardipine 20 MG/200 ML 20 MG/200 ML BAG IV PRN (13:14)
--- NOTE | 2017-04-18 13:19 | PN ---
DATE: 04/18/2017 SUBJECTIVE: The patient is seen lying in bed in the ICU. She is on mechanical ventilation. She is on 3% sodium chloride, she is unresponsive. She is not on any sedation at this time. PHYSICAL EXAMINATION: GENERAL: Middle age lady, lying in bed in the ICU. VITAL SIGNS: Blood pressure 129/66, heart rate 80, respiratory rate 30 and temperature 97.9. HEENT: Normocephalic, atraumatic. Pupils unequal; right pupil 5 mm nonreactive to light left pupil 2 to 3 mm. NECK: Supple. No JVD. LUNGS: Bilateral equal air entry, bilateral equal expansion. No rales appreciated anteriorly. CARDIAC: S1 and S2, regular rate and rhythm, no murmur, no rub. ABDOMEN: Distended, soft, nontender, bowel sounds present. EXTREMITIES: 1+ pitting edema of the lower extremities. INTAKE AND OUTPUT: 2273/not charted. LABORATORY DATA: WBC 17.9, hemoglobin 10.7, hematocrit 32 and platelets 230. Sodium 154, potassium 3.6, chloride 116, CO2 26, BUN 25, creatinine 4.5, glucose 126, calcium 9.3. Repeat head CT from this morning, large and extensive right intracranial hemorrhage mostly right intracerebral and intraventricular blood and hydrocephalus. Right interval craniotomy with intracerebral hematoma evacuation surrounding mass effect leftward shift. CURRENT MEDICATIONS: Nicardipine 2.5 mg per hour, Diprivan on hold, doxycycline 100 q. 12, 3% saline at 30 mL per hour, IV insulin, Keppra, Protonix, ceftriaxone. ASSESSMENT: 1. Acute hemorrhagic cerebrovascular accident, intracerebral hemorrhage score of 4 or worse. Poor prognosis. Latest CAT shows progression of hemorrhage. 2. Hypernatremia secondary to 3% saline. 3. History of hypertension. 4. History of noninsulin-dependent diabetes mellitus. 5. Anemia of chronic kidney disease. 6. Secondary hyperparathyroidism. 7. Pupillary dilatation. PLAN: 1. Prognosis looks extremely poor in this patient with large intracerebral bleed. Continue 3% saline in hope to reduce brain edema. 2. Dialysis today, 3 hours, ultrafiltration about 1 kg. 3. Continue Cardene drip. 4. Prognosis to be discussed with family in detail. 5. Case discussed with social worker palliative care, ICU staff and ICU residence. More than 35 minutes spent in the care of this critically ill patient. Joy Andrade MD [facility] # [id number]
--- NOTE | 2017-04-18 14:54 | CP.PCM.PN ---
Subjective - Date & Time of Evaluation Date of Evaluation: 04/18/17 Time of Evaluation: 14:45 - Subjective Subjective: Mrs. Martinez was seen and examined today at bedside in the ICU. She was off propofol since 8 AM this morning and has not had much improvement in her clinical exam. She had the repeat CT head this morning which showed only slight improvement in the midline shift. There is continued edema and significant amount of residual hematoma. I discussed the poor prognostic outcome with the family at length and answered their questions. Objective - Vital Signs/Intake and Output Vital Signs (last 24 hours): Temp Pulse Resp BP Pulse Ox 98.6 F 92 H 14 162/70 H 100 04/18/17 12:40 04/18/17 13:14 04/18/17 08:11 04/18/17 13:14 04/18/17 12:40 Intake and Output: 04/18/17 04/18/17 06:59 18:59 Intake Total 1213 310 Output Total 21 Balance 1192 310 - Medications Medications: Current Medications Nicardipine HCl (Cardene Iv Premix) 20 mg in 200 mls @ 50 mls/hr IV .Q4H PRN; Protocol; 5 MG/HR PRN Reason: TITRATE PER MD ORDER Last Titration: 04/18/17 14:10 Dose: 2 mg/hr, 20 mls/hr Propofol (Diprivan) 1,000 mg in 100 mls @ 1.705 mls/hr IV .Q24H PRN; Protocol; 5 MCG/KG/MIN PRN Reason: TITRATE PER MD ORDER Last Titration: 04/18/17 08:30 Dose: 0 mcg/kg/min, 0 mls/hr Doxycycline Hyclate 100 mg/ (Sodium Chloride) 100 mls @ 100 mls/hr IVPB Q12 NILSA PRN Reason: Protocol Last Admin: 04/18/17 09:13 Dose: 100 mls/hr Ceftriaxone Sodium (Rocephin 1 Gram Ivpb) 1 gm in 100 mls @ 100 mls/hr IVPB DAILY NILSA PRN Reason: Protocol Last Admin: 04/18/17 09:12 Dose: 100 mls/hr Insulin Human Regular 100 (units/ Sodium Chloride) 100 mls @ 1 mls/hr IV .Q24H PRN; Protocol; 1 UNITS/HR PRN Reason: TITRATE PER MD ORDER Last Titration: 04/18/17 14:00 Dose: 2 units/hr, 2 mls/hr Levetiracetam 1,000 mg/ Sodium (Chloride) 110 mls @ 460 mls/hr IV Q12 NILSA Last Admin: 04/18/17 09:13 Dose: 460 mls/hr Sodium Chloride (Hypertonic Saline 3%) 500 mls @ 30 mls/hr IV .[id number] NILSA Last Admin: 04/18/17 00:30 Dose: 30 mls/hr Pantoprazole Sodium (Protonix Inj) 40 mg IVP Q12 NILSA Last Admin: 04/18/17 09:08 Dose: 40 mg - Labs Labs: 04/18/17 05:45 04/18/17 10:30 PT 13.5 Seconds (9.9-11.8) H 04/18/17 05:45 INR 1.25 (0.93-1.08) H 04/18/17 05:45 APTT 23.6 Seconds (23.7-30.8) L 04/16/17 10:56 - Neurological Exam Additional comments: Neurologically unchanged limited to brainstem function. GCS= 4T Assessment and Plan (1) ICH (intracerebral hemorrhage) Assessment & Plan: Will continue conservative management to control edema with hypertonic fluid. Peak swelling is expected to occur today and over the next few days. I recommend social work and case management for assistance with the family's expectations. Status: Acute
[2017-04-18] MEDS ORDERED: Sodium Chloride 0.9% 500 ML IV STA (15:37)
--- NOTE | 2017-04-18 15:38 | CP.PCM.PN ---
Subjective - Date & Time of Evaluation Date of Evaluation: 04/18/17 Time of Evaluation: 11:10 - Subjective Subjective: Patient seen and examined, remains intubated. Propofol shut off this morning, EVD clamped by NSBlake. Pt had repeat CT, this morning which showed only slight improvement in the midline shift. There is continued edema and significant amount of residual hematoma. Objective - Vital Signs/Intake and Output Vital Signs (last 24 hours): Temp Pulse Resp BP Pulse Ox 99.0 F 101 H 14 167/83 H 100 04/18/17 14:40 04/18/17 14:40 04/18/17 08:11 04/18/17 14:00 04/18/17 14:40 Intake and Output: 04/18/17 04/18/17 06:59 18:59 Intake Total 1213 320 Output Total 21 Balance 1192 320 - Medications Medications: Current Medications Nicardipine HCl (Cardene Iv Premix) 20 mg in 200 mls @ 50 mls/hr IV .Q4H PRN; Protocol; 5 MG/HR PRN Reason: TITRATE PER MD ORDER Last Titration: 04/18/17 14:58 Dose: 0.5 mg/hr, 5 mls/hr Propofol (Diprivan) 1,000 mg in 100 mls @ 1.705 mls/hr IV .Q24H PRN; Protocol; 5 MCG/KG/MIN PRN Reason: TITRATE PER MD ORDER Last Titration: 04/18/17 08:30 Dose: 0 mcg/kg/min, 0 mls/hr Doxycycline Hyclate 100 mg/ (Sodium Chloride) 100 mls @ 100 mls/hr IVPB Q12 NILSA PRN Reason: Protocol Last Admin: 04/18/17 09:13 Dose: 100 mls/hr Ceftriaxone Sodium (Rocephin 1 Gram Ivpb) 1 gm in 100 mls @ 100 mls/hr IVPB DAILY NILSA PRN Reason: Protocol Last Admin: 04/18/17 09:12 Dose: 100 mls/hr Insulin Human Regular 100 (units/ Sodium Chloride) 100 mls @ 1 mls/hr IV .Q24H PRN; Protocol; 1 UNITS/HR PRN Reason: TITRATE PER MD ORDER Last Titration: 04/18/17 14:00 Dose: 2 units/hr, 2 mls/hr Levetiracetam 1,000 mg/ Sodium (Chloride) 110 mls @ 460 mls/hr IV Q12 [facility] Last Admin: 04/18/17 09:13 Dose: 460 mls/hr Sodium Chloride (Hypertonic Saline 3%) 500 mls @ 30 mls/hr IV .[id number] [facility] Last Admin: 04/18/17 00:30 Dose: 30 mls/hr Pantoprazole Sodium (Protonix Inj) 40 mg IVP Q12 [facility] Last Admin: 04/18/17 09:08 Dose: 40 mg - Labs Labs: 04/18/17 05:45 04/18/17 10:30 PT 13.5 Seconds (9.9-11.8) H 04/18/17 05:45 INR 1.25 (0.93-1.08) H 04/18/17 05:45 APTT 23.6 Seconds (23.7-30.8) L 04/16/17 10:56 - Constitutional Appears: Well, Non-toxic - Head Exam Additional comments: EVD in place - Eye Exam Additional comments: R errol-orbital swelling - Respiratory Exam Respiratory Exam: Clear to Ausculation Bilateral - Cardiovascular Exam Cardiovascular Exam: RRR, +S1, +S2 - GI/Abdominal Exam GI & Abdominal Exam: Normal Bowel Sounds - Extremities Exam Extremities Exam: Normal Inspection Assessment and Plan - Assessment and Plan (Free Text) Assessment: 47yo female with ICH s/p EVD and decompression craniectomy - remains off Propofol, with poor neurological exam, GCS 4 - neurology following - repeat CTH without significant improvement - underwent HD today - met family today and informed them of the repeat findings including the neurological exam Recommend: - keep intubated, off sedation - maintain low tidal volume ventilation, normal pH - continue with abx as per ID - repeat procalcitonin - follow up cultures - keep SBP 120-130, Cardene for BP control if needed - maintain Na 150-155 - cont with 3% Na - repeat CTH in the tomorrow am - maintain glucose 140-180 - keep euthermic - HD as per renal, patient tolerated HD today, 2 liters taken - NGT, start feeds, nutrition consult - monitor HH - DVT ppx - poor prognosis, obtain palliative care consult
--- NOTE | 2017-04-18 18:33 | RAD ---
HISTORY: OG tube COMPARISON: Chest x-ray performed 04/17/17 TECHNIQUE: Chest, one view. FINDINGS: The endotracheal tube terminates approximately 3.6 cm above the level the ramos. Nasogastric tube extends expected location of the stomach. Numerous external wires and leads obscure evaluation of the underlying parenchyma. LUNGS: No focal consolidation. Please note that chest x-ray has limited sensitivity for the detection of pulmonary masses. PLEURA: No significant pleural effusion identified. No definite pneumothorax . CARDIOVASCULAR: Heart size appears within normal limits. OSSEOUS STRUCTURES: No acute osseous abnormality identified. VISUALIZED UPPER ABDOMEN: Unremarkable. OTHER FINDINGS: None. IMPRESSION: The endotracheal tube terminates approximately 3.6 cm above the level the ramos. Nasogastric tube extends expected location of the stomach.
--- NOTE | 2017-04-18 18:45 | CP.PCM.PN ---
Subjective - Date & Time of Evaluation Date of Evaluation: 04/18/17 Time of Evaluation: 06:45 Objective - Vital Signs/Intake and Output Vital Signs (last 24 hours): Temp Pulse Resp BP Pulse Ox 97.0 F L 86 14 110/65 100 04/18/17 18:30 04/18/17 18:34 04/18/17 08:11 04/18/17 18:00 04/18/17 18:30 Intake and Output: 04/18/17 04/18/17 06:59 18:59 Intake Total 1213 1307 Output Total 21 2024 Balance 1192 -718 - Medications Medications: Current Medications Nicardipine HCl (Cardene Iv Premix) 20 mg in 200 mls @ 50 mls/hr IV .Q4H PRN; Protocol; 5 MG/HR PRN Reason: TITRATE PER MD ORDER Last Titration: 04/18/17 15:08 Dose: 0 mg/hr, 0 mls/hr Propofol (Diprivan) 1,000 mg in 100 mls @ 1.705 mls/hr IV .Q24H PRN; Protocol; 5 MCG/KG/MIN PRN Reason: TITRATE PER MD ORDER Last Titration: 04/18/17 08:30 Dose: 0 mcg/kg/min, 0 mls/hr Doxycycline Hyclate 100 mg/ (Sodium Chloride) 100 mls @ 100 mls/hr IVPB Q12 NILSA PRN Reason: Protocol Last Admin: 04/18/17 09:13 Dose: 100 mls/hr Ceftriaxone Sodium (Rocephin 1 Gram Ivpb) 1 gm in 100 mls @ 100 mls/hr IVPB DAILY NILSA PRN Reason: Protocol Last Admin: 04/18/17 09:12 Dose: 100 mls/hr Insulin Human Regular 100 (units/ Sodium Chloride) 100 mls @ 1 mls/hr IV .Q24H PRN; Protocol; 1 UNITS/HR PRN Reason: TITRATE PER MD ORDER Last Titration: 04/18/17 18:06 Dose: 1 units/hr, 1 mls/hr Levetiracetam 1,000 mg/ Sodium (Chloride) 110 mls @ 460 mls/hr IV Q12 NILSA Last Admin: 04/18/17 09:13 Dose: 460 mls/hr Sodium Chloride (Hypertonic Saline 3%) 500 mls @ 30 mls/hr IV .[id number] NILSA Last Admin: 04/18/17 00:30 Dose: 30 mls/hr Pantoprazole Sodium (Protonix Inj) 40 mg IVP Q12 NILSA Last Admin: 04/18/17 09:08 Dose: 40 mg - Labs Labs: 04/18/17 05:45 04/18/17 18:00 PT 13.5 Seconds (9.9-11.8) H 04/18/17 05:45 INR 1.25 (0.93-1.08) H 04/18/17 05:45 APTT 23.6 Seconds (23.7-30.8) L 04/16/17 10:56
--- NOTE | 2017-04-18 19:26 | PN ---
DATE: 04/18/2017 SUBJECTIVE: The patient is seen In ICU bed 1. The patient is lying in the bed. The patient is intubated, sedated on propofol drip. The patient is being evaluated by the sharing network. The patient is also presently getting dialysis. The patient has been followed by the ICU. PHYSICAL EXAMINATION: VITAL SIGNS: T-max 98.1. Telemetry shows sinus rhythm. Heart rate in 70s and 80s. Blood pressure is averaging in the last 24 around systolic 130s and 140s, diastolic 70s and 80s. Respirations are 16 to 18 on vent. O2 sat 100% to 99%. Intake output noted. HEENT: The patient's head examination shows positive scalp dressing. The patient is sedated and nonresponsive. Pinkish pale conjunctivae. Positive ET tube noted. Positive craniectomy catheter noted. Positive dressing noted. CHEST: Shows positive rhonchi, left more than the right. ABDOMEN: Soft. Positive bowel sounds GENITALIA: Female. Positive left groin triple lumen catheter noted. EXTREMITIES: Positive left upper extremity dialysis catheter. The patient is presently getting dialyzed. SCDs noted. NEUROLOGIC: The patient is sedated, nonresponsive. DIAGNOSTICS: On 04/18/2017, WBC 17.9, hemoglobin and hematocrit 10.7 and 31.6 and platelets 230. Granulocytes is 87%. PT/INR 13.5. ABG on 30% FiO2 on vent. PH of 7.54, pCO2 of 38, pO2 117, bicarb 24, saturation of 99%. Sodium is 144, potassium 3.6, chloride 116, CO2 of 26, anion gap 16, BUN 25, creatinine 1.5, GFR 13, glucose 109, 154, 126, 139, 143. Hemoglobin A1c 8.3. Serum osmolality 315, 315, 312, 316. Phosphorous 4.7, alkaline phosphatase 175, albumin 2.6. Blood cultures, no growth. Repeat CT head of the chest was noted from 04/18 ordered by the neurosurgeon, which shows large right-sided intraparenchymal hemorrhage similar, status post right craniotomy noted. With right-sided cerebral edema noted. With slightly decreased left side midline shift. With positive right ventricular hemorrhage and persistent 3rd and 4th intraventricular bleed noted. With left intraventricular hemorrhage has increased with large and the posterior left lateral ventricle. With an interval 9 to 10 mm left cerebral cortical shunt hematoma. Intraventricular blood and hydrocephalus noted. Right craniotomy noted and left shunt insertion noted. Impression on the CAT scan large and extensive right intracranial hemorrhage, mostly intracerebral with intraventricular hemorrhage and hydrocephalus with right craniotomy and partial intracerebral hematoma evacuation. With superior aspect postop gas cavity noted. With associated mass affected surrounding edema persistent. With slightly decreased leftward midline shift noted. With dilatation of the left temporal horn and left lateral ventricle slightly increased; left-sided shunt tube insertion with the tip in the posterior left lateral ventricle. With left errol-shunt cerebral cortical hematoma noted. Chest x-ray from 04/17 possible left lower lobe pneumonia infiltrate with ET tube noted. EKG from 04/16 reviewed. Echo from 04/17 reviewed, which shows ejection fraction of 35%, right ventricular systolic pressure 34 mmHg, valvular gradients were noted. Severely impaired left ventricular systolic function noted. Global left ventricular hypokinesis. ASSESSMENT: 1. Right-sided intraparenchymal and intracerebral bleed and hemorrhage, status post right craniotomy and left-sided cerebral shunt placement. 2. Hydrocephalus. 3. Status post ventriculostomy. 4. Left-sided midline shift. 5. Possible left lower lobe ventilator dependant aspiration pneumonia. 6. Status post left femoral triple lumen catheter placement. 7. Systemic inflammatory response syndrome. 8. End-stage renal disease, hemodialysis dependent with a left upper extremity AV fistula. 9. Uncontrolled accelerated hypertension. 10. Transient hypothermia. 11. Leukocytosis with granulocytosis. 12. Mild coagulopathy. 13. Ventilator-dependent respiratory failure. 14. Hypernatremia. 15. Hypokalemia. 16. Type I insulin requiring diabetes mellitus with hemoglobin A1c. 17. Hypoalbuminemia. 18. Hyperprolactinemia. 19. Hypercholesteremia with elevated LDL. 20. Possible left lower lobe pneumonia. 21. Right-sided intraparenchymal and intracerebral bleed with right craniotomy. 22. Right cerebral edema with left-sided midline shift. 23. Intraventricular hemorrhage in the 3rd and 4th ventricle and lateral ventricle. 24. Left frontoparietal ventriculostomy shunt placement. 25. Status post right craniotomy and left intracranial shunt placement. 26. Cardiomyopathy, etiology undetermined with left ventricular ejection fraction of 35% and severely impaired left ventricular systolic function and global left ventricular hypokinesis. 27. Mild pulmonary arterial hypertension with right ventricular systolic pressure of 34 mmHg. 28. Uncontrolled accelerated hypertension versus hypertensive urgency emergency. 29. Right-sided intracerebral bleed and hemorrhagic stroke with left hemiplegia. 30. History of secondary hyperparathyroidism. PLAN: At this time, the patient has been ordered serial labs. The patient's current consultation cardiology, infectious disease, neurology, neurosurgery, palliative care has been ordered by automobile drivers. Nephrology has been ordered. The patient is currently on doxycycline 100 mg IV q. 12. The patient is on insulin drip. Keppra 1000 mg q. 12; Cardene drip. The patient is on propofol drip, Protonix 40 IV q. 12, Rocephin 1 g IV daily, hypertonic saline to reduce cerebral edema at 30 mL an hour. The patient is n.p.o. . The patient is on SCDs and kelly stockings. The patient's prognosis is extremely guarded to poor. Family has been explained and told about the patient's condition, overall guarded to poor prognosis, critical condition which they acknowledged and understand. Time spent in the entire management more than 35 minutes. Dictated and electronically signed, not read. Signing off, Nader Ramos MD Nader Ramos MD
[2017-04-19 06:39] LABS: HEMOGLOBIN 10.1 g/dL (12.0-16.0); MEAN CELL VOLUME 87.9 fl (80.0-105.0); MEAN CORPUSCULAR HEMOGLOBIN 28.4 pg (25.0-35.0); MEAN CORPUSCULAR HGB CONC 32.3 g/dl (31.0-37.0); MEAN PLATELET VOLUME 12.6 fl (7.0-11.0); PLATELET COUNT 215 10^3/uL (120.0-450.0); RBC 3.56 10^6/uL (3.5-6.1); RED CELL DISTRIBUTION WIDTH 16.5 % (11.5-14.5); WHITE BLOOD COUNT 14.1 10^3/ul (4.5-11.0)
[2017-04-19 06:44] LABS: INR 1.2 (0.93-1.08)
[2017-04-19 07:04] LABS: ALB/GLOB RATIO 0.8 (1.1-1.8); ALBUMIN 2.5 g/dL (3.0-4.8); BILIRUBIN,DIRECT 0.7 mg/dL (0.0-0.4); CALCIUM 9.1 mg/dL (8.4-10.5); MAGNESIUM 1.9 mg/dL (1.7-2.2)
--- NOTE | 2017-04-19 07:39 | CP.PCM.PN ---
Subjective - Date & Time of Evaluation Date of Evaluation: 04/19/17 Time of Evaluation: 07:39 - Subjective Subjective: Medicine Progress Note for Joseline Valdivia, PGY2 Patient seen and examined at bedside. As per nursing, there were no acute overnight events. The patient is intubated and off of sedation. ROS could no be obtained. She is not withdrawing to pain stimuli and brain stem reflexes are not intact. Objective - Vital Signs/Intake and Output Vital Signs (last 24 hours): Temp Pulse Resp BP Pulse Ox 96.4 F L 79 14 145/88 100 04/19/17 06:30 04/19/17 06:30 04/18/17 08:11 04/19/17 06:00 04/19/17 06:30 Intake and Output: 04/19/17 04/19/17 06:59 18:59 Intake Total 1505 Output Total 2000 Balance -495 - Medications Medications: Current Medications Nicardipine HCl (Cardene Iv Premix) 20 mg in 200 mls @ 50 mls/hr IV .Q4H PRN; Protocol; 5 MG/HR PRN Reason: TITRATE PER MD ORDER Last Titration: 04/18/17 15:08 Dose: 0 mg/hr, 0 mls/hr Propofol (Diprivan) 1,000 mg in 100 mls @ 1.705 mls/hr IV .Q24H PRN; Protocol; 5 MCG/KG/MIN PRN Reason: TITRATE PER MD ORDER Last Titration: 04/18/17 08:30 Dose: 0 mcg/kg/min, 0 mls/hr Doxycycline Hyclate 100 mg/ (Sodium Chloride) 100 mls @ 100 mls/hr IVPB Q12 [facility] PRN Reason: Protocol Last Admin: 04/18/17 21:47 Dose: 100 mls/hr Ceftriaxone Sodium (Rocephin 1 Gram Ivpb) 1 gm in 100 mls @ 100 mls/hr IVPB DAILY [facility] PRN Reason: Protocol Last Admin: 04/18/17 09:12 Dose: 100 mls/hr Insulin Human Regular 100 (units/ Sodium Chloride) 100 mls @ 1 mls/hr IV .Q24H PRN; Protocol; 1 UNITS/HR PRN Reason: TITRATE PER MD ORDER Last Titration: 04/19/17 02:06 Dose: 0 units/hr, 0 mls/hr Levetiracetam 1,000 mg/ Sodium (Chloride) 110 mls @ 460 mls/hr IV Q12 [facility] Last Admin: 04/18/17 21:47 Dose: 460 mls/hr Sodium Chloride (Hypertonic Saline 3%) 500 mls @ 30 mls/hr IV .[id number] [facility] Last Admin: 04/18/17 00:30 Dose: 30 mls/hr Pantoprazole Sodium (Protonix Inj) 40 mg IVP Q12 [facility] Last Admin: 04/18/17 21:47 Dose: 40 mg - Labs Labs: 04/19/17 06:02 04/19/17 06:02 PT 13.0 Seconds (9.9-11.8) H 04/19/17 06:02 INR 1.20 (0.93-1.08) H 04/19/17 06:02 APTT 23.6 Seconds (23.7-30.8) L 04/16/17 10:56 - Constitutional Appears: No Acute Distress - Head Exam Head Exam: NORMOCEPHALIC Additional comments: L sided drain in place- clean and dry, no drainage. - Eye Exam Additional comments: R orbital edema 4mm pupils bilaterally, very sluggish - ENT Exam ENT Exam: Mucous Membranes Moist - Respiratory Exam Respiratory Exam: Clear to Ausculation Bilateral, NORMAL BREATHING PATTERN. absent: Rales, Rhonchi, Wheezes - Cardiovascular Exam Cardiovascular Exam: REGULAR RHYTHM, +S1, +S2. absent: Gallop, Rubs, Murmur - GI/Abdominal Exam GI & Abdominal Exam: Soft, Normal Bowel Sounds. absent: Rigid, Tenderness, Mass , Rebound - Extremities Exam Extremities Exam: Normal Inspection. absent: Calf Tenderness, Pedal Edema - Neurological Exam Neuro motor strength exam: Left Upper Extremity: 0, Right Upper Extremity: 0, Left Lower Extremity: 0, Right Lower Extremity: 0 Additional comments: intubated, off sedation. No withdrawal to pain stimuli + babinski on R and L Pupils barely reactive. No gag reflex or dolls eye - Skin Skin Exam: Dry, Normal Color, Warm Assessment and Plan - Assessment and Plan (Free Text) Assessment: This is a 47Y F with PMH IDDM, ESRD on HD (MWF), HTN who was came to ED from HD admitted for R intracerebral hemorrhage secondary to hypertensive emergency. Pt is s/p Crainiotomy on L POD#3. Plan: 1. Intracerebral hemorrhage - secondary to hypertensive emergency - s/p Crainiotomy POD#3 - GCS 3 off of propofol - Pt intubated on PRVC 400/16/5/30% - Continue Protective lung ventilation strategy - Neuro and neurosurgery consulted- recs appreciated - Continue neuro checks q1h - Keppra - seizure precaution - on Cardene drip - Maintain SBP 120-130 - Hypertonic saline @30/hr - Maintain Na: 145-155, Osm <320 - Maintain Euglycemia 140-180 - Maintain INR <1.4 - Maintain normothermia 2. HCAP - afebrile, leukocytosis trending down - CXR showed questionable LLL pneumonia - repeat CXR did not show lung parenchyma due to wires obstructing view - Continue Doxy and Rocephin - ID consulted- recs appreciated 3. HTN Emergency- resolved - Cardene drip - Goal SBP between 120-130 4. DM - continue insulin drip - BGM q1h - Maintain blood glucose 140-180 - HgbA1c of 8.3 5. ESRD on HD - Pt had HD yesterday - Nephro consulted- recs appreciated 6. CHF - Strict I&O - pt anuric - HOB elevated, aspiration precaution - Cardio consulted- recs appreciated - Echo: EF 35% with severe LV dysfunction GI ppx: Protonix DVT ppx: SCDs. No anticoagulants due to active bleed Dispo: Prognosis is poor. Palliative care consulted. Will consult surgery for possible trach and peg. Case seen, discussed and reviewed with attending. Lila Moctezuma PGY2
[2017-04-19 08:23] LABS: BAND 1 % (0-2); LYMPHOCYTE 10 % (22.0-35.0); MONOCYTE 6 % (1.0-6.0); NEUTROPHIL 83 % (50.0-70.0); NUCLEATED RED BLOOD CELL 1 %
[2017-04-19 08:26] LABS: HYPOCHROMIA SLIGHT; MICROCYTOSIS SLIGHT; TARGET CELLS SLIGHT
[2017-04-19 08:27] LABS: PLATELET ESTIMATE NORMAL (NORMAL)
[2017-04-19] MEDS: Sodium Chloride 3% 500 ML IV SCH (09:07)
[2017-04-19] MEDS: cefTRIAXone 1 gm 1 GM/100 ML BAG IVPB SCH (09:13)
[2017-04-19] MEDS: levETIRAcetam 1,000 MG in Sodium Chloride 0.9% 100 ML IV SCH ×2 (09:18→21:57)
--- NOTE | 2017-04-19 11:09 | PN ---
DATE: 04/19/2017 SUBJECTIVE: The patient remains sedated and unresponsive in the unit. PHYSICAL EXAMINATION: VITAL SIGNS: Blood pressure 135 systolic, heart rate is stable. NECK: Negative JVD. LUNGS: Without rales. HEART: S1, S2. EXTREMITIES: Without edema. LABORATORY DATA: BUN and creatinine 22 and 3.8 with a potassium of 3.6, glucose is 121. IMPRESSION 1. Intracranial bleed. 2. End-stage renal disease. 3. Dilated cardiomyopathy. 4. Hypertension which is well-controlled. Given these findings, the patient's blood pressure and hemodynamics remained stable. Awaiting decisions with neurology and neurosurgery in terms of the next steps. Neeraj Moore MD
--- NOTE | 2017-04-19 13:14 | CP.PCM.CON ---
History of Present Illness - History of Present Illness History of Present Illness: Palliative consult requested by Dr Jennie Ramos Reason: Goals of care 47 year old female with history of ESRD/dialysis dependent who presented with headache and acute onset of hemiplegia while receiving dialysis. CT scan of head showed large intraparenchymal hemorrhage in right cerebral hemisphere centred in right basal ganglia and right temporal lobe, minimal leftward midline shift. Intraventricular hemorrhage in right lateral ventricle as well as 3rd and 4th ventricles. She has since had craniotomy with evacuation and decompression of bleed. Subsequent CT scan s/p evacuation large extensive intracranial hemorrhage, intraventricular blood and hydrocephalus, mass effect/ edema persists, left midline shift slightly decreased, left temporal horn and left lateral ventricular dilatation are slightly increased. The patient is off Propofol. Neurological status remains poor, no gag or corneal reflexes, no independent respirations. PMHX:IDDM, EDRD on dialysis, HTN, CHF, cholesystectomy Social History:Non smoker, no alcohol or drug use. Lives at home with her children Family History: DM, HTN. Advance Care Planning: The patient did not have an Advance Directive. Review of Systems:Unable to obtain, intubated and in vegetative state Past Patient History - Past Medical History & Family History Past Medical History?: Yes - Past Social History Smoking Status: Never Smoked - CARDIAC Hx Cardiac Disorders: Yes Hx Congestive Heart Failure: Yes Hx Hypertension: Yes - PULMONARY Hx Respiratory Disorders: No - NEUROLOGICAL Hx Neurological Disorder: No Hx Paralysis: No - HEENT Hx HEENT Problems: No - RENAL Hx Chronic Kidney Disease: Yes Hx Renal Failure: Yes (PT. FOUND OUT IN 2013) Other/Comment: Left AV shunt - ENDOCRINE/METABOLIC Hx Diabetes Mellitus Type 1: Yes Other/Comment: Partial Thyroidectomy - HEMATOLOGICAL/ONCOLOGICAL Hx Anemia: Yes - INTEGUMENTARY Hx Dermatological Problems: No - MUSCULOSKELETAL/RHEUMATOLOGICAL Hx Falls: Yes - GASTROINTESTINAL Hx Gastrointestinal Disorders: No - GENITOURINARY/GYNECOLOGICAL Hx Genitourinary Disorders: Yes (RENAL FAILURE) Other/Comment: Partial Hysterectomy 2006 - PSYCHIATRIC Hx Substance Use: No - SURGICAL HISTORY Hx Cholecystectomy: Yes Hx Hysterectomy: Yes - ANESTHESIA Hx Anesthesia Reactions: No Hx Malignant Hyperthermia: No Meds Allergies/Adverse Reactions: Allergies Allergy/AdvReac Type Severity Reaction Status Date / Time No Known Allergies Allergy Verified 04/16/17 21:39 - Medications Medications: Current Medications Nicardipine HCl (Cardene Iv Premix) 20 mg in 200 mls @ 50 mls/hr IV .Q4H PRN; Protocol; 5 MG/HR PRN Reason: TITRATE PER MD ORDER Last Titration: 04/18/17 15:08 Dose: 0 mg/hr, 0 mls/hr Propofol (Diprivan) 1,000 mg in 100 mls @ 1.705 mls/hr IV .Q24H PRN; Protocol; 5 MCG/KG/MIN PRN Reason: TITRATE PER MD ORDER Last Titration: 04/18/17 08:30 Dose: 0 mcg/kg/min, 0 mls/hr Doxycycline Hyclate 100 mg/ (Sodium Chloride) 100 mls @ 100 mls/hr IVPB Q12 [facility] PRN Reason: Protocol Last Admin: 04/19/17 09:19 Dose: 100 mls/hr Ceftriaxone Sodium (Rocephin 1 Gram Ivpb) 1 gm in 100 mls @ 100 mls/hr IVPB DAILY [facility] PRN Reason: Protocol Last Admin: 04/19/17 09:13 Dose: 100 mls/hr Insulin Human Regular 100 (units/ Sodium Chloride) 100 mls @ 1 mls/hr IV .Q24H PRN; Protocol; 1 UNITS/HR PRN Reason: TITRATE PER MD ORDER Last Titration: 04/19/17 02:06 Dose: 0 units/hr, 0 mls/hr Levetiracetam 1,000 mg/ Sodium (Chloride) 110 mls @ 460 mls/hr IV Q12 [facility] Last Admin: 04/19/17 09:18 Dose: 460 mls/hr Sodium Chloride (Hypertonic Saline 3%) 500 mls @ 30 mls/hr IV .[id number] [facility] Last Admin: 04/19/17 09:07 Dose: 30 mls/hr Pantoprazole Sodium (Protonix Inj) 40 mg IVP DAILY [facility] Polyethylene Glycol (Miralax) 17 gm PO DAILY [facility] Physical Exam - Constitutional Appears: Chronically Ill - Eye Exam Additional comments: right orbit edema, no corneal /pupillary response - ENT Exam ENT Exam: Mucous Membranes Moist - Respiratory Exam Respiratory Exam: Clear to Auscultation Bilateral - Cardiovascular Exam Cardiovascular Exam: REGULAR RHYTHM, +S1, +S2 - GI/Abdominal Exam GI & Abdominal Exam: Diminished Bowel Sounds, Soft - Extremities Exam Extremities exam: Positive for: pedal pulses present Additional comments: all extremities flaccid - Skin Skin Exam: Dry, Warm - Additional Findings Additional findings: Palliative performance scale rating 10 % Results - Vital Signs Recent Vital Signs: Last Vital Signs Temp 96.4 F L 04/19/17 06:30 Pulse 80 04/19/17 07:00 Resp 14 04/18/17 08:11 BP 145/88 04/19/17 06:00 Pulse Ox 100 04/19/17 06:30 - Labs Result Diagrams: 04/19/17 06:02 04/19/17 06:02 Labs: Laboratory Results - last 24 hr 04/18/17 04/18/17 04/18/17 13:12 14:17 15:10 WBC RBC Hgb Hct MCV MCH MCHC RDW Plt Count MPV Neutrophils % (Manual) Band Neutrophils % Lymphocytes % (Manual) Monocytes % (Manual) Nucleated RBC % Platelet Evaluation Hypochromasia Microcytosis (manual) Target Cells PT INR Sodium 148 Potassium Chloride Carbon Dioxide Anion Gap BUN Creatinine Est GFR ( Amer) Est GFR (Non-Af Amer) POC Glucose (mg/dL) 142 H 223 H Random Glucose Calcium Phosphorus Magnesium Total Bilirubin Direct Bilirubin AST ALT Alkaline Phosphatase Total Protein Albumin Globulin Albumin/Globulin Ratio 04/18/17 04/18/17 04/18/17 15:16 16:07 17:03 WBC RBC Hgb Hct MCV MCH MCHC RDW Plt Count MPV Neutrophils % (Manual) Band Neutrophils % Lymphocytes % (Manual) Monocytes % (Manual) Nucleated RBC % Platelet Evaluation Hypochromasia Microcytosis (manual) Target Cells PT INR Sodium Potassium Chloride Carbon Dioxide Anion Gap BUN Creatinine Est GFR ( Amer) Est GFR (Non-Af Amer) POC Glucose (mg/dL) 229 H 216 H 187 H Random Glucose Calcium Phosphorus Magnesium Total Bilirubin Direct Bilirubin AST ALT Alkaline Phosphatase Total Protein Albumin Globulin Albumin/Globulin Ratio 04/18/17 04/18/17 04/18/17 18:00 18:00 19:08 WBC RBC Hgb Hct MCV MCH MCHC RDW Plt Count MPV Neutrophils % (Manual) Band Neutrophils % Lymphocytes % (Manual) Monocytes % (Manual) Nucleated RBC % Platelet Evaluation Hypochromasia Microcytosis (manual) Target Cells PT INR Sodium 149 H Potassium Chloride Carbon Dioxide Anion Gap BUN Creatinine Est GFR ( Amer) Est GFR (Non-Af Amer) POC Glucose (mg/dL) 168 H 141 H Random Glucose Calcium Phosphorus Magnesium Total Bilirubin Direct Bilirubin AST ALT Alkaline Phosphatase Total Protein Albumin Globulin Albumin/Globulin Ratio 04/18/17 04/18/17 04/18/17 20:01 21:59 23:31 WBC RBC Hgb Hct MCV MCH MCHC RDW Plt Count MPV Neutrophils % (Manual) Band Neutrophils % Lymphocytes % (Manual) Monocytes % (Manual) Nucleated RBC % Platelet Evaluation Hypochromasia Microcytosis (manual) Target Cells PT INR Sodium Potassium Chloride Carbon Dioxide Anion Gap BUN Creatinine Est GFR ( Amer) Est GFR (Non-Af Amer) POC Glucose (mg/dL) 130 H 123 H 108 Random Glucose Calcium Phosphorus Magnesium Total Bilirubin Direct Bilirubin AST ALT Alkaline Phosphatase Total Protein Albumin Globulin Albumin/Globulin Ratio 04/19/17 04/19/17 04/19/17 00:08 01:06 02:01 WBC RBC Hgb Hct MCV MCH MCHC RDW Plt Count MPV Neutrophils % (Manual) Band Neutrophils % Lymphocytes % (Manual) Monocytes % (Manual) Nucleated RBC % Platelet Evaluation Hypochromasia Microcytosis (manual) Target Cells PT INR Sodium Potassium Chloride Carbon Dioxide Anion Gap BUN Creatinine Est GFR ( Amer) Est GFR (Non-Af Amer) POC Glucose (mg/dL) 91 102 96 Random Glucose Calcium Phosphorus Magnesium Total Bilirubin Direct Bilirubin AST ALT Alkaline Phosphatase Total Protein Albumin Globulin Albumin/Globulin Ratio 04/19/17 04/19/17 04/19/17 03:02 03:56 05:11 WBC RBC Hgb Hct MCV MCH MCHC RDW Plt Count MPV Neutrophils % (Manual) Band Neutrophils % Lymphocytes % (Manual) Monocytes % (Manual) Nucleated RBC % Platelet Evaluation Hypochromasia Microcytosis (manual) Target Cells PT INR Sodium Potassium Chloride Carbon Dioxide Anion Gap BUN Creatinine Est GFR ( Amer) Est GFR (Non-Af Amer) POC Glucose (mg/dL) 114 H 127 H 146 H Random Glucose Calcium Phosphorus Magnesium Total Bilirubin Direct Bilirubin AST ALT Alkaline Phosphatase Total Protein Albumin Globulin Albumin/Globulin Ratio 04/19/17 04/19/17 04/19/17 05:59 06:02 06:02 WBC 14.1 H D RBC 3.56 Hgb 10.1 L Hct 31.3 L MCV 87.9 MCH 28.4 MCHC 32.3 RDW 16.5 H Plt Count 215 MPV 12.6 H Neutrophils % (Manual) 83 H Band Neutrophils % 1 Lymphocytes % (Manual) 10 L Monocytes % (Manual) 6 Nucleated RBC % 1 Platelet Evaluation Normal Hypochromasia Slight Microcytosis (manual) Slight Target Cells Slight PT 13.0 H INR 1.20 H Sodium Potassium Chloride Carbon Dioxide Anion Gap BUN Creatinine Est GFR ( Amer) Est GFR (Non-Af Amer) POC Glucose (mg/dL) 129 H Random Glucose Calcium Phosphorus Magnesium Total Bilirubin Direct Bilirubin AST ALT Alkaline Phosphatase Total Protein Albumin Globulin Albumin/Globulin Ratio 04/19/17 04/19/17 04/19/17 06:02 07:38 08:54 WBC RBC Hgb Hct MCV MCH MCHC RDW Plt Count MPV Neutrophils % (Manual) Band Neutrophils % Lymphocytes % (Manual) Monocytes % (Manual) Nucleated RBC % Platelet Evaluation Hypochromasia Microcytosis (manual) Target Cells PT INR Sodium 154 H Potassium 3.6 Chloride 117 H Carbon Dioxide 26 Anion Gap 15 BUN 22 H Creatinine 3.8 H Est GFR ( Amer) 15 Est GFR (Non-Af Amer) 13 POC Glucose (mg/dL) 136 H 139 H Random Glucose 121 H Calcium 9.1 Phosphorus 3.5 Magnesium 1.9 Total Bilirubin 0.7 Direct Bilirubin 0.7 H AST 19 ALT 23 Alkaline Phosphatase 175 H Total Protein 5.6 L Albumin 2.5 L Globulin 3.1 Albumin/Globulin Ratio 0.8 L 04/19/17 04/19/17 10:26 10:57 WBC RBC Hgb Hct MCV MCH MCHC RDW Plt Count MPV Neutrophils % (Manual) Band Neutrophils % Lymphocytes % (Manual) Monocytes % (Manual) Nucleated RBC % Platelet Evaluation Hypochromasia Microcytosis (manual) Target Cells PT INR Sodium Potassium Chloride Carbon Dioxide Anion Gap BUN Creatinine Est GFR ( Amer) Est GFR (Non-Af Amer) POC Glucose (mg/dL) 139 H 149 H Random Glucose Calcium Phosphorus Magnesium Total Bilirubin Direct Bilirubin AST ALT Alkaline Phosphatase Total Protein Albumin Globulin Albumin/Globulin Ratio Assessment & Plan - Assessment and Plan (Free Text) Assessment: 47 year old female wit history of ESRD/dialysis who suffered severe ICH. No gag/ corneal/pupillary reflexes. Prognosis very poor. I met with patient's three sons, daughter and Aunt. I explained that patient has suffered significant brain injury with no meaningful hope of recovery. Family has been told by neurology that based on todays clinical exam, she appears to have no brain function. Explained if further testing affirms brain , then life support would need to be removed. Dr. Vincent also spoke with family and reenforced the above conversation. I went on to explained that in the event brain is not confirmed, patient would require LTAC/ mechanical breathing support/ HD, PEG. Benefits and burdens of long-term life support explained in detail. Questions answered. I explained that in this scenario patient would remain in vegetative state with no meaningful quality of life. Option for terminal extubation /comfort care also offered. Family is appreciative of our discussion,they are overwhelmed and need some time to absorb the gravity of the situation. Psychosocial support provided. Spiritual support offered, which family declined at this time. Time spent with family in goals of care discussion, 45 minutes. Plan: Palliative support, Goals of care discussion and planning
--- NOTE | 2017-04-19 13:14 | CP.PCM.PN ---
Subjective - Date & Time of Evaluation Date of Evaluation: 04/19/17 Time of Evaluation: 08:10 - Subjective Subjective: Patient seen and examined. Remains off sedation, with no neurological response. Underwent HD yesterday. Objective - Vital Signs/Intake and Output Vital Signs (last 24 hours): Temp Pulse Resp BP Pulse Ox 96.4 F L 80 14 145/88 100 04/19/17 06:30 04/19/17 07:00 04/18/17 08:11 04/19/17 06:00 04/19/17 06:30 Intake and Output: 04/19/17 04/19/17 06:59 18:59 Intake Total 1505 Output Total 2000 Balance -495 - Medications Medications: Current Medications Nicardipine HCl (Cardene Iv Premix) 20 mg in 200 mls @ 50 mls/hr IV .Q4H PRN; Protocol; 5 MG/HR PRN Reason: TITRATE PER MD ORDER Last Titration: 04/18/17 15:08 Dose: 0 mg/hr, 0 mls/hr Propofol (Diprivan) 1,000 mg in 100 mls @ 1.705 mls/hr IV .Q24H PRN; Protocol; 5 MCG/KG/MIN PRN Reason: TITRATE PER MD ORDER Last Titration: 04/18/17 08:30 Dose: 0 mcg/kg/min, 0 mls/hr Doxycycline Hyclate 100 mg/ (Sodium Chloride) 100 mls @ 100 mls/hr IVPB Q12 [facility] PRN Reason: Protocol Last Admin: 04/19/17 09:19 Dose: 100 mls/hr Ceftriaxone Sodium (Rocephin 1 Gram Ivpb) 1 gm in 100 mls @ 100 mls/hr IVPB DAILY [facility] PRN Reason: Protocol Last Admin: 04/19/17 09:13 Dose: 100 mls/hr Insulin Human Regular 100 (units/ Sodium Chloride) 100 mls @ 1 mls/hr IV .Q24H PRN; Protocol; 1 UNITS/HR PRN Reason: TITRATE PER MD ORDER Last Titration: 04/19/17 02:06 Dose: 0 units/hr, 0 mls/hr Levetiracetam 1,000 mg/ Sodium (Chloride) 110 mls @ 460 mls/hr IV Q12 [facility] Last Admin: 04/19/17 09:18 Dose: 460 mls/hr Sodium Chloride (Hypertonic Saline 3%) 500 mls @ 30 mls/hr IV .[id number] [facility] Last Admin: 04/19/17 09:07 Dose: 30 mls/hr Pantoprazole Sodium (Protonix Inj) 40 mg IVP DAILY [facility] Polyethylene Glycol (Miralax) 17 gm PO DAILY [facility] - Labs Labs: 04/19/17 06:02 04/19/17 06:02 PT 13.0 Seconds (9.9-11.8) H 04/19/17 06:02 INR 1.20 (0.93-1.08) H 04/19/17 06:02 APTT 23.6 Seconds (23.7-30.8) L 04/16/17 10:56 - Constitutional Appears: Non-toxic, No Acute Distress - Head Exam Additional comments: EVD in place - Eye Exam Additional comments: pupils non reactive - Respiratory Exam Respiratory Exam: Clear to Ausculation Bilateral - Cardiovascular Exam Cardiovascular Exam: RRR, +S1, +S2 - GI/Abdominal Exam GI & Abdominal Exam: Soft, Normal Bowel Sounds - Extremities Exam Extremities Exam: Normal Inspection - Neurological Exam Additional comments: absent gag reflex does not over breath the ventilator Assessment and Plan - Assessment and Plan (Free Text) Assessment: 47yo female with ICH s/p EVD and decompression craniectomy - remains off Propofol, with poor neurological exam, GCS 4 - neurology following - repeat CTH today pending - received PICC line today Recommend: - keep intubated, off sedation - maintain low tidal volume ventilation, normal pH - continue with abx as per ID - keep SBP 120-130, Cardene for BP control if needed - maintain Na 150-155 - cont with 3% Na - repeat CTH today - DC femoral line - maintain glucose 140-180 - keep euthermic - HD as per renal, patient tolerated HD yesterday, 2 liters taken - cont with feeds - DVT ppx, SCDs - poor prognosis, follow up palliative care consult, will attempt to set up family meeting with Meghann, Palliative care, and primary team to disucss with family
--- NOTE | 2017-04-19 13:18 | CP.PCM.PN ---
Subjective - Date & Time of Evaluation Date of Evaluation: 04/19/17 Time of Evaluation: 13:14 - Subjective Subjective: Mrs. Martinez was seen and examined today in the ICU with her family at bedside. There has been worsening in her clinical exam. She no longer has brainstem reflexes. No pupilary response, no corneals, no gag/cough and is not breathing over the ventilator. I discussed with the family that clinically, she has no brain function and, although confirmatory tests have not been performed, she is brain based on current exam. Objective - Vital Signs/Intake and Output Vital Signs (last 24 hours): Temp Pulse Resp BP Pulse Ox 96.4 F L 80 14 145/88 100 04/19/17 06:30 04/19/17 07:00 04/18/17 08:11 04/19/17 06:00 04/19/17 06:30 Intake and Output: 04/19/17 04/19/17 06:59 18:59 Intake Total 1505 Output Total 2000 Balance -495 - Medications Medications: Current Medications Nicardipine HCl (Cardene Iv Premix) 20 mg in 200 mls @ 50 mls/hr IV .Q4H PRN; Protocol; 5 MG/HR PRN Reason: TITRATE PER MD ORDER Last Titration: 04/18/17 15:08 Dose: 0 mg/hr, 0 mls/hr Propofol (Diprivan) 1,000 mg in 100 mls @ 1.705 mls/hr IV .Q24H PRN; Protocol; 5 MCG/KG/MIN PRN Reason: TITRATE PER MD ORDER Last Titration: 04/18/17 08:30 Dose: 0 mcg/kg/min, 0 mls/hr Doxycycline Hyclate 100 mg/ (Sodium Chloride) 100 mls @ 100 mls/hr IVPB Q12 [facility] PRN Reason: Protocol Last Admin: 04/19/17 09:19 Dose: 100 mls/hr Ceftriaxone Sodium (Rocephin 1 Gram Ivpb) 1 gm in 100 mls @ 100 mls/hr IVPB DAILY [facility] PRN Reason: Protocol Last Admin: 04/19/17 09:13 Dose: 100 mls/hr Insulin Human Regular 100 (units/ Sodium Chloride) 100 mls @ 1 mls/hr IV .Q24H PRN; Protocol; 1 UNITS/HR PRN Reason: TITRATE PER MD ORDER Last Titration: 04/19/17 02:06 Dose: 0 units/hr, 0 mls/hr Levetiracetam 1,000 mg/ Sodium (Chloride) 110 mls @ 460 mls/hr IV Q12 [facility] Last Admin: 04/19/17 09:18 Dose: 460 mls/hr Sodium Chloride (Hypertonic Saline 3%) 500 mls @ 30 mls/hr IV .[id number] [facility] Last Admin: 04/19/17 09:07 Dose: 30 mls/hr Pantoprazole Sodium (Protonix Inj) 40 mg IVP DAILY [facility] Polyethylene Glycol (Miralax) 17 gm PO DAILY [facility] - Labs Labs: 04/19/17 06:02 04/19/17 06:02 PT 13.0 Seconds (9.9-11.8) H 04/19/17 06:02 INR 1.20 (0.93-1.08) H 04/19/17 06:02 APTT 23.6 Seconds (23.7-30.8) L 04/16/17 10:56 - Neurological Exam Additional comments: No cortical or brainstem reflexes noted. Based on neurological examination, the patient may be brain . Assessment and Plan (1) ICH (intracerebral hemorrhage) Assessment & Plan: Progressive worsening of her neurologic function is consistent with likely continued hemorrhage despite all efforts and likely brainstem herniation. A repeat CT head to confirm can be obtained. I discussed this with the family and also let them know that there is a 0% chance of recovery from this brain injury. Status: Acute
--- NOTE | 2017-04-19 13:44 | CP.PCM.CON ---
History of Present Illness - History of Present Illness History of Present Illness: Surgery Consult Note: Patient is a 47 yo F with PMH IDDM, ESRD on HD (MWF), HTN who was admitted to the hospital for evaluation and treatment for R intracerebral hemorrhage and L sided hemiplagia. Surgery is consulted for potential tracheotomy tube placement. The patient is intubated and off of sedation. She is not withdrawing to noxious stimuli and brain stem reflexes are not intact. Family is at bedside and were informed of both potential tracheostomy procedure and potential PEG tube placement. Family is requesting time to deliberate consent for aforementioned procedures. ROS could not be obtained at this time. PMH: IDDM, ESRD on HD, HTN, CHF (on previous records) PSH: Cholecystectomy, Hysterectomy, L AV fistula Home meds: Please refer to MAR All: NKDA SH: denies tobacco, EtOH or drug use FH: HTN, DM Review of Systems - Review of Systems Systems not reviewed;Unavailable: Altered Mental Status Past Patient History - Past Medical History & Family History Past Medical History?: Yes - Past Social History Smoking Status: Never Smoked - CARDIAC Hx Cardiac Disorders: Yes Hx Congestive Heart Failure: Yes Hx Hypertension: Yes - PULMONARY Hx Respiratory Disorders: No - NEUROLOGICAL Hx Neurological Disorder: No Hx Paralysis: No - HEENT Hx HEENT Problems: No - RENAL Hx Chronic Kidney Disease: Yes Hx Renal Failure: Yes (PT. FOUND OUT IN 2013) Other/Comment: Left AV shunt - ENDOCRINE/METABOLIC Hx Diabetes Mellitus Type 1: Yes Other/Comment: Partial Thyroidectomy - HEMATOLOGICAL/ONCOLOGICAL Hx Anemia: Yes - INTEGUMENTARY Hx Dermatological Problems: No - MUSCULOSKELETAL/RHEUMATOLOGICAL Hx Falls: Yes - GASTROINTESTINAL Hx Gastrointestinal Disorders: No - GENITOURINARY/GYNECOLOGICAL Hx Genitourinary Disorders: Yes (RENAL FAILURE) Other/Comment: Partial Hysterectomy 2006 - PSYCHIATRIC Hx Substance Use: No - SURGICAL HISTORY Hx Cholecystectomy: Yes Hx Hysterectomy: Yes - ANESTHESIA Hx Anesthesia Reactions: No Hx Malignant Hyperthermia: No Meds Allergies/Adverse Reactions: Allergies Allergy/AdvReac Type Severity Reaction Status Date / Time No Known Allergies Allergy Verified 04/16/17 21:39 - Medications Medications: Current Medications Nicardipine HCl (Cardene Iv Premix) 20 mg in 200 mls @ 50 mls/hr IV .Q4H PRN; Protocol; 5 MG/HR PRN Reason: TITRATE PER MD ORDER Last Titration: 04/19/17 13:00 Dose: 1 mg/hr, 10 mls/hr Propofol (Diprivan) 1,000 mg in 100 mls @ 1.705 mls/hr IV .Q24H PRN; Protocol; 5 MCG/KG/MIN PRN Reason: TITRATE PER MD ORDER Last Titration: 04/18/17 08:30 Dose: 0 mcg/kg/min, 0 mls/hr Doxycycline Hyclate 100 mg/ (Sodium Chloride) 100 mls @ 100 mls/hr IVPB Q12 NILSA PRN Reason: Protocol Last Admin: 04/19/17 09:19 Dose: 100 mls/hr Ceftriaxone Sodium (Rocephin 1 Gram Ivpb) 1 gm in 100 mls @ 100 mls/hr IVPB DAILY NILSA PRN Reason: Protocol Last Admin: 04/19/17 09:13 Dose: 100 mls/hr Insulin Human Regular 100 (units/ Sodium Chloride) 100 mls @ 1 mls/hr IV .Q24H PRN; Protocol; 1 UNITS/HR PRN Reason: TITRATE PER MD ORDER Last Titration: 04/19/17 02:06 Dose: 0 units/hr, 0 mls/hr Levetiracetam 1,000 mg/ Sodium (Chloride) 110 mls @ 460 mls/hr IV Q12 [facility] Last Admin: 04/19/17 09:18 Dose: 460 mls/hr Sodium Chloride (Hypertonic Saline 3%) 500 mls @ 30 mls/hr IV .[id number] [facility] Last Admin: 04/19/17 09:07 Dose: 30 mls/hr Pantoprazole Sodium (Protonix Inj) 40 mg IVP DAILY [facility] Polyethylene Glycol (Miralax) 17 gm PO DAILY [facility] Physical Exam - Additional Findings Additional findings: - Constitutional Appears: No Acute Distress - Head Exam Head Exam: NORMOCEPHALIC Additional comments: L sided drain in place - Eye Exam Additional comments: R orbital edema - ENT Exam ENT Exam: Mucous Membranes Moist - Respiratory Exam Respiratory Exam: Clear to Ausculation Bilateral, mechanical breath sounds present. absent: Rales, Rhonchi, Wheezes - Cardiovascular Exam Cardiovascular Exam: REGULAR RHYTHM, +S1, +S2. absent: Gallop, Rubs, Murmur - GI/Abdominal Exam GI & Abdominal Exam: Soft, Normal Bowel Sounds. absent: Rigid, Tenderness, Mass , Rebound - Extremities Exam Extremities Exam: Normal Inspection. absent: Pedal Edema - Neurological Exam Neuro motor strength exam: Left Upper Extremity: 0, Right Upper Extremity: 0, Left Lower Extremity: 0, Right Lower Extremity: 0 Additional comments: intubated, off sedation. No withdrawal to pain stimuli - Skin Skin Exam: Dry, Normal Color, Warm Results - Vital Signs Recent Vital Signs: Last Vital Signs Temp 96.4 F L 04/19/17 06:30 Pulse 80 04/19/17 07:00 Resp 14 04/18/17 08:11 BP 145/88 04/19/17 06:00 Pulse Ox 100 04/19/17 06:30 - Labs Result Diagrams: 04/19/17 06:02 04/19/17 06:02 Labs: Laboratory Results - last 24 hr 04/18/17 04/18/17 04/18/17 14:17 15:10 15:16 WBC RBC Hgb Hct MCV MCH MCHC RDW Plt Count MPV Neutrophils % (Manual) Band Neutrophils % Lymphocytes % (Manual) Monocytes % (Manual) Nucleated RBC % Platelet Evaluation Hypochromasia Microcytosis (manual) Target Cells PT INR Sodium 148 Potassium Chloride Carbon Dioxide Anion Gap BUN Creatinine Est GFR ( Amer) Est GFR (Non-Af Amer) POC Glucose (mg/dL) 223 H 229 H Random Glucose Calcium Phosphorus Magnesium Total Bilirubin Direct Bilirubin AST ALT Alkaline Phosphatase Total Protein Albumin Globulin Albumin/Globulin Ratio 04/18/17 04/18/17 04/18/17 16:07 17:03 18:00 WBC RBC Hgb Hct MCV MCH MCHC RDW Plt Count MPV Neutrophils % (Manual) Band Neutrophils % Lymphocytes % (Manual) Monocytes % (Manual) Nucleated RBC % Platelet Evaluation Hypochromasia Microcytosis (manual) Target Cells PT INR Sodium 149 H Potassium Chloride Carbon Dioxide Anion Gap BUN Creatinine Est GFR ( Amer) Est GFR (Non-Af Amer) POC Glucose (mg/dL) 216 H 187 H Random Glucose Calcium Phosphorus Magnesium Total Bilirubin Direct Bilirubin AST ALT Alkaline Phosphatase Total Protein Albumin Globulin Albumin/Globulin Ratio 04/18/17 04/18/17 04/18/17 18:00 19:08 20:01 WBC RBC Hgb Hct MCV MCH MCHC RDW Plt Count MPV Neutrophils % (Manual) Band Neutrophils % Lymphocytes % (Manual) Monocytes % (Manual) Nucleated RBC % Platelet Evaluation Hypochromasia Microcytosis (manual) Target Cells PT INR Sodium Potassium Chloride Carbon Dioxide Anion Gap BUN Creatinine Est GFR ( Amer) Est GFR (Non-Af Amer) POC Glucose (mg/dL) 168 H 141 H 130 H Random Glucose Calcium Phosphorus Magnesium Total Bilirubin Direct Bilirubin AST ALT Alkaline Phosphatase Total Protein Albumin Globulin Albumin/Globulin Ratio 04/18/17 04/18/17 04/19/17 21:59 23:31 00:08 WBC RBC Hgb Hct MCV MCH MCHC RDW Plt Count MPV Neutrophils % (Manual) Band Neutrophils % Lymphocytes % (Manual) Monocytes % (Manual) Nucleated RBC % Platelet Evaluation Hypochromasia Microcytosis (manual) Target Cells PT INR Sodium Potassium Chloride Carbon Dioxide Anion Gap BUN Creatinine Est GFR ( Amer) Est GFR (Non-Af Amer) POC Glucose (mg/dL) 123 H 108 91 Random Glucose Calcium Phosphorus Magnesium Total Bilirubin Direct Bilirubin AST ALT Alkaline Phosphatase Total Protein Albumin Globulin Albumin/Globulin Ratio 04/19/17 04/19/17 04/19/17 01:06 02:01 03:02 WBC RBC Hgb Hct MCV MCH MCHC RDW Plt Count MPV Neutrophils % (Manual) Band Neutrophils % Lymphocytes % (Manual) Monocytes % (Manual) Nucleated RBC % Platelet Evaluation Hypochromasia Microcytosis (manual) Target Cells PT INR Sodium Potassium Chloride Carbon Dioxide Anion Gap BUN Creatinine Est GFR ( Amer) Est GFR (Non-Af Amer) POC Glucose (mg/dL) 102 96 114 H Random Glucose Calcium Phosphorus Magnesium Total Bilirubin Direct Bilirubin AST ALT Alkaline Phosphatase Total Protein Albumin Globulin Albumin/Globulin Ratio 04/19/17 04/19/17 04/19/17 03:56 05:11 05:59 WBC RBC Hgb Hct MCV MCH MCHC RDW Plt Count MPV Neutrophils % (Manual) Band Neutrophils % Lymphocytes % (Manual) Monocytes % (Manual) Nucleated RBC % Platelet Evaluation Hypochromasia Microcytosis (manual) Target Cells PT INR Sodium Potassium Chloride Carbon Dioxide Anion Gap BUN Creatinine Est GFR ( Amer) Est GFR (Non-Af Amer) POC Glucose (mg/dL) 127 H 146 H 129 H Random Glucose Calcium Phosphorus Magnesium Total Bilirubin Direct Bilirubin AST ALT Alkaline Phosphatase Total Protein Albumin Globulin Albumin/Globulin Ratio 04/19/17 04/19/17 04/19/17 06:02 06:02 06:02 WBC 14.1 H D RBC 3.56 Hgb 10.1 L Hct 31.3 L MCV 87.9 MCH 28.4 MCHC 32.3 RDW 16.5 H Plt Count 215 MPV 12.6 H Neutrophils % (Manual) 83 H Band Neutrophils % 1 Lymphocytes % (Manual) 10 L Monocytes % (Manual) 6 Nucleated RBC % 1 Platelet Evaluation Normal Hypochromasia Slight Microcytosis (manual) Slight Target Cells Slight PT 13.0 H INR 1.20 H Sodium 154 H Potassium 3.6 Chloride 117 H Carbon Dioxide 26 Anion Gap 15 BUN 22 H Creatinine 3.8 H Est GFR ( Amer) 15 Est GFR (Non-Af Amer) 13 POC Glucose (mg/dL) Random Glucose 121 H Calcium 9.1 Phosphorus 3.5 Magnesium 1.9 Total Bilirubin 0.7 Direct Bilirubin 0.7 H AST 19 ALT 23 Alkaline Phosphatase 175 H Total Protein 5.6 L Albumin 2.5 L Globulin 3.1 Albumin/Globulin Ratio 0.8 L 04/19/17 04/19/17 04/19/17 07:38 08:54 10:26 WBC RBC Hgb Hct MCV MCH MCHC RDW Plt Count MPV Neutrophils % (Manual) Band Neutrophils % Lymphocytes % (Manual) Monocytes % (Manual) Nucleated RBC % Platelet Evaluation Hypochromasia Microcytosis (manual) Target Cells PT INR Sodium Potassium Chloride Carbon Dioxide Anion Gap BUN Creatinine Est GFR ( Amer) Est GFR (Non-Af Amer) POC Glucose (mg/dL) 136 H 139 H 139 H Random Glucose Calcium Phosphorus Magnesium Total Bilirubin Direct Bilirubin AST ALT Alkaline Phosphatase Total Protein Albumin Globulin Albumin/Globulin Ratio 04/19/17 04/19/17 10:57 13:06 WBC RBC Hgb Hct MCV MCH MCHC RDW Plt Count MPV Neutrophils % (Manual) Band Neutrophils % Lymphocytes % (Manual) Monocytes % (Manual) Nucleated RBC % Platelet Evaluation Hypochromasia Microcytosis (manual) Target Cells PT INR Sodium Potassium Chloride Carbon Dioxide Anion Gap BUN Creatinine Est GFR ( Amer) Est GFR (Non-Af Amer) POC Glucose (mg/dL) 149 H 159 H Random Glucose Calcium Phosphorus Magnesium Total Bilirubin Direct Bilirubin AST ALT Alkaline Phosphatase Total Protein Albumin Globulin Albumin/Globulin Ratio Assessment & Plan - Assessment and Plan (Free Text) Assessment: This is a 47Y F with PMH IDDM, ESRD on HD (MWF), HTN who was admitted to the hospital for evaluation and treatment for R intracerebral hemorrhage and L sided hemiplagia. Pt is s/p Crainiotomy on L POD#3. Tracheotomy Tube Placement for custodial mechanical ventilation 1. Patients family informed of procedure, awaiting decision regarding consent and goals of care
--- NOTE | 2017-04-19 14:14 | PN ---
SUBJECTIVE: The patient is seen lying in bed in the ICU, she is not on sedation anymore, she is unresponsive, she remains on mechanical ventilation. She is receiving 3% saline at 30 mL per hour. PHYSICAL EXAMINATION: GENERAL: Middle-aged lady, lying in bed in the ICU. VITAL SIGNS: Blood pressure 129/66, heart rate 65 per minute, respiratory rate 14 and temperature 96.4. HEENT: Normocephalic, atraumatic. Pupils dilated, un-reactive. NECK: Supple, no JVD. LUNGS: Bilateral equal air entry, bilateral equal expansion, no rales, no rhonchi. CARDIAC: S1 and S2, regular rate and rhythm, no murmur, no rub. ABDOMEN: Soft, nondistended, nontender, bowel sounds present. EXTREMITIES: No lower extremity edema. INTAKE AND OUTPUT: 2812/4025. LABORATORY DATA: WBC 14, hemoglobin 10, hematocrit 31 and platelets 215. Sodium 154, potassium 3.6, chloride 117, CO2 of 26, BUN 22, creatinine 3.8, glucose 121, calcium 9.1, phosphorus 3.5, magnesium 1.9, AST 19, ALT 23, albumin 2.5. INR 1.2. PH 7.54, pCO2 of 28, PO2 of 117. Blood cultures, no growth. CURRENT MEDICATIONS: Doxycycline 100 mg q.12, 3% saline at 30 mL per hour, Keppra 1000 q.12, Protonix 40, ceftriaxone 1 g daily. Cardene drip on hold because of hypotension. Insulin drip on hold because of hypoglycemia. ASSESSMENT AND PLAN: 1. Acute hemorrhagic cerebrovascular accident, right intracerebral bleed, GST 4. 2. Remains ventilator dependent. 3. No gag reflex. 4. Hypertension, controlled now. 5. Hypoglycemia. 6. Not triggering the vent, completely vent dependent. 7. End-stage renal disease. PLAN: 1. Continue ventilator management for now. 2. Prognosis is extremely grim. 3. Repeat CT scan of the head did not show much improvement, showed mild decrease in the midline shift. 4. Case discussed at length with spa attendant and ICU resident, family to decide regarding continuation of management versus withdrawal of care. We will arrange for dialysis tomorrow if care to be continued at this level. More than 35 minutes spent in the care of this critically ill patient and discussion with multiple providers. Joy Andrade MD [facility] # [id number]
--- NOTE | 2017-04-19 14:56 | PN ---
DATE: 04/19/2017 SUBJECTIVE: The patient is seen in ICU/CCU bed 1. The patient is intubated unresponsive, sedated on Diprivan drip. The patient is intubated. Overnight nurse's notes were reviewed. PHYSICAL EXAMINATION VITAL SIGNS: T-max is 96.4; heart rate 75, 80, 81; blood pressure 145/88. Yesterday's blood pressure averaging around episodically the patient's blood pressure was 100 systolic then 160 systolic, 140 systolic. Respirations 16-14. O2 saturations is 100%. INTAKE AND OUTPUT: Intake 1488, output 2024. Today's intake 1004, output 2000. HEENT: Head examination shows positive craniotomy, positive scalp dressing, positive ventriculostomy noted. Pinkish pale conjunctivae. Anicteric sclera. No oropharyngeal lesion. No neck rigidity. CHEST: Kyphosis. LUNGS: Shows positive rhonchi, occasional crepitus left more than the right. CARDIOVASCULAR: S1 and S2. ABDOMEN: Soft. Positive bowel sounds. GENITALIA: Female. EXTREMITIES: Positive SCDs. MUSCULOSKELETAL: Shows a body mass index of 25. NEUROLOGIC: The patient is unresponsive to painful stimuli. The patient is bedridden. DIAGNOSTICS: On 04/19/2017, WBC 14.1, hemoglobin and hematocrit 10.1 and 31.3 and platelets 215. Granulocytes 83%. Sodium is 154, potassium 3.6, chloride 117, CO2 of 26, anion gap 15, BUN 22, creatinine 3.8, GFR 15, glucose 139, 136, 121, 146. Alkaline phosphatase 135, magnesium 1.9, phosphorus 3.5, total protein 5.6, albumin 2.5. Blood cultures, no growth. The patient's chest x-ray from 04/18/2017 is reviewed. The patient's CAT scan from yesterday was reviewed. The patient's echocardiogram was reviewed. The patient seen by neurologist and adjunct faculty. IMPRESSION AND PLAN: 1. Right-sided intracerebral intraparenchymal bleed, status post craniotomy and decompression craniectomy and external ventriculostomy drain placement. 2. Ventilator dependent, respiratory failure. 3. End-stage renal disease, hemodialysis dependent. 4. Status post uncontrolled accelerated hypertension versus hypertensive emergency and urgency. 5. Leukocytosis with granulocytosis. 6. Normocytic anemia. 7. Ventilator dependent respiratory failure. 8. Hypernatremia. 9. Hypokalemia. 10. Type 1 insulin requiring diabetes mellitus uncontrolled with hemoglobin A1c of 8.3. 11. Hyperprolactinemia. 12. Hypercholesterolemia with elevated LDL. 13. Cardiomyopathy with left ventricular ejection fraction of 35%. 14. Severely impaired left ventricular systolic function. 15. Left ventricular global hypokinesis. 16. Mild pulmonary arterial hypertension with right ventricular systolic pressure of 34 mmHg. 17. Mild mitral regurgitation. PLAN: At this time, the patient is to be continued on ventilator support. At present, the patient's case is referred to social sciences department chair palliative care. Current consultation cardiology, infectious disease, neurology, neurosurgery, and nephrology. The patient has been requested to be seen by surgeon for a possible PEG gastrostomy and tracheostomy. The patient's family met with the social security specialist then met the patient's son and aunt. The patient's family has been informed about the patient's poor prognosis. At present, the patient will be continued on above therapeutic and diagnostic interventions. Including the patient is on IV Cardene, IV insulin drip, IV propofol drip. The patient is on doxycycline 100 mg IV q.12, Keppra 1000 mg q.12, Miralax 17 g daily, IV Cardene, Diprivan drip, Protonix 40 mg IV q.12, Rocephin 1 g IV daily, hypertonic saline at 30 mL an hour. Chest x-ray ordered. Repeat CT of the head ordered by the ICU resident. The patient is on n.p.o. diet. The patient has been started on NG tube feeding. The patient's management discussed at length with the medical residents and the adjunct faculty. Prognosis is poor. Family decision regarding court status and further residential care pending. Dictated and electronically signed, not read. Nader Ramos MD
--- NOTE | 2017-04-19 15:17 | CT ---
PROCEDURE: CT HEAD WITHOUT CONTRAST. HISTORY: EVD COMPARISON: CT of the head dated 04/16/2017 and 04/18/2017 TECHNIQUE: Axial computed tomography images were obtained through the head/brain without intravenous contrast. Radiation dose: Total exam DLP = 734 mGy-cm. This CT exam was performed using one or more of the following dose reduction techniques: Automated exposure control, adjustment of the mA and/or kV according to patient size, and/or use of iterative reconstruction technique. FINDINGS: HEMORRHAGE: There is no change in the postoperative appearance of the large right hemispheric hematoma. There is a craniotomy defect and a large air-filled cleft within the brain parenchyma extending to the hematoma. There is persistent dense blood in the ventricular system. There is persistent 10 mm of midline shift to the left. BRAIN: As above VENTRICLES: The previous study showed a shunt catheter in the left lateral ventricle. This catheter has been removed. The left lateral ventricle is smaller than it was on the previous exam. Blood also fills the 3rd and 4th ventricle. CALVARIUM: Unremarkable. PARANASAL SINUSES: Unremarkable as visualized. No significant inflammatory changes. MASTOID AIR CELLS: Unremarkable as visualized. No inflammatory changes. OTHER FINDINGS: None. IMPRESSION: No significant change in postoperative appearance of large right hemispheric hematoma. The left lateral ventricle including the temporal horn have decreased in size
--- NOTE | 2017-04-19 15:23 | CP.PCM.PN ---
Subjective - Date & Time of Evaluation Date of Evaluation: 04/19/17 Time of Evaluation: 15:21 - Subjective Subjective: Pt comastose piupils anisocorc and fixed no occulocephalics no corneals no spont resp flaccid to deep pain Clinically brain suggest palliative care from this point Ventriculostomy removed Objective - Vital Signs/Intake and Output Vital Signs (last 24 hours): Temp Pulse Resp BP Pulse Ox 96.4 F L 80 14 145/88 100 04/19/17 06:30 04/19/17 07:00 04/18/17 08:11 04/19/17 06:00 04/19/17 06:30 Intake and Output: 04/19/17 04/19/17 06:59 18:59 Intake Total 1505 0 Output Total 2000 Balance -495 0 - Medications Medications: Current Medications Nicardipine HCl (Cardene Iv Premix) 20 mg in 200 mls @ 50 mls/hr IV .Q4H PRN; Protocol; 5 MG/HR PRN Reason: TITRATE PER MD ORDER Last Titration: 04/19/17 13:00 Dose: 1 mg/hr, 10 mls/hr Propofol (Diprivan) 1,000 mg in 100 mls @ 1.705 mls/hr IV .Q24H PRN; Protocol; 5 MCG/KG/MIN PRN Reason: TITRATE PER MD ORDER Last Titration: 04/18/17 08:30 Dose: 0 mcg/kg/min, 0 mls/hr Doxycycline Hyclate 100 mg/ (Sodium Chloride) 100 mls @ 100 mls/hr IVPB Q12 NILSA PRN Reason: Protocol Last Admin: 04/19/17 09:19 Dose: 100 mls/hr Ceftriaxone Sodium (Rocephin 1 Gram Ivpb) 1 gm in 100 mls @ 100 mls/hr IVPB DAILY NILSA PRN Reason: Protocol Last Admin: 04/19/17 09:13 Dose: 100 mls/hr Insulin Human Regular 100 (units/ Sodium Chloride) 100 mls @ 1 mls/hr IV .Q24H PRN; Protocol; 1 UNITS/HR PRN Reason: TITRATE PER MD ORDER Last Titration: 04/19/17 02:06 Dose: 0 units/hr, 0 mls/hr Levetiracetam 1,000 mg/ Sodium (Chloride) 110 mls @ 460 mls/hr IV Q12 NILSA Last Admin: 04/19/17 09:18 Dose: 460 mls/hr Sodium Chloride (Hypertonic Saline 3%) 500 mls @ 30 mls/hr IV .[id number] NILSA Last Admin: 04/19/17 09:07 Dose: 30 mls/hr Pantoprazole Sodium (Protonix Inj) 40 mg IVP DAILY NILSA Polyethylene Glycol (Miralax) 17 gm PO DAILY NILSA - Labs Labs: 04/19/17 06:02 04/19/17 06:02 PT 13.0 Seconds (9.9-11.8) H 04/19/17 06:02 INR 1.20 (0.93-1.08) H 04/19/17 06:02 APTT 23.6 Seconds (23.7-30.8) L 04/16/17 10:56
--- NOTE | 2017-04-19 15:24 | RAD ---
HISTORY: intubated, PNA COMPARISON: 04/18/2017 FINDINGS: LUNGS: There is suspected retrocardiac opacity with silhouetting of the left hemidiaphragm. Possible pneumonia. PLEURA: Slight blunting of left costophrenic angle. CARDIOVASCULAR: Normal heart size. Endotracheal tube positioned approximately 4 cm above the tracheal ramos. A nasogastric tube extends to the left side of the abdomen. A right PICC catheter terminates at approximately the level of the cavoatrial junction. There is no congestive change. OSSEOUS STRUCTURES: No significant abnormalities. VISUALIZED UPPER ABDOMEN: Normal. OTHER FINDINGS: None. IMPRESSION: Possible left retrocardiac infiltrate. Small left pleural effusion. ET tube, NG tube and right PICC catheter noted.
--- NOTE | 2017-04-19 15:33 | CP.PCM.PN ---
Subjective - Date & Time of Evaluation Date of Evaluation: 04/19/17 Time of Evaluation: 09:05 - Subjective Subjective: Still intubated and on the ventilator, minimally responsive. No fevers overnight. Objective - Vital Signs/Intake and Output Vital Signs (last 24 hours): Temp Pulse Resp BP Pulse Ox 96.4 F L 79 14 145/88 100 04/19/17 06:30 04/19/17 06:30 04/18/17 08:11 04/19/17 06:00 04/19/17 06:30 Intake and Output: 04/18/17 04/19/17 18:59 06:59 Intake Total 1307 512 Output Total 2025 Balance -718 512 - Medications Medications: Current Medications Nicardipine HCl (Cardene Iv Premix) 20 mg in 200 mls @ 50 mls/hr IV .Q4H PRN; Protocol; 5 MG/HR PRN Reason: TITRATE PER MD ORDER Last Titration: 04/18/17 15:08 Dose: 0 mg/hr, 0 mls/hr Propofol (Diprivan) 1,000 mg in 100 mls @ 1.705 mls/hr IV .Q24H PRN; Protocol; 5 MCG/KG/MIN PRN Reason: TITRATE PER MD ORDER Last Titration: 04/18/17 08:30 Dose: 0 mcg/kg/min, 0 mls/hr Doxycycline Hyclate 100 mg/ (Sodium Chloride) 100 mls @ 100 mls/hr IVPB Q12 NILSA PRN Reason: Protocol Last Admin: 04/18/17 21:47 Dose: 100 mls/hr Ceftriaxone Sodium (Rocephin 1 Gram Ivpb) 1 gm in 100 mls @ 100 mls/hr IVPB DAILY NILSA PRN Reason: Protocol Last Admin: 04/18/17 09:12 Dose: 100 mls/hr Insulin Human Regular 100 (units/ Sodium Chloride) 100 mls @ 1 mls/hr IV .Q24H PRN; Protocol; 1 UNITS/HR PRN Reason: TITRATE PER MD ORDER Last Titration: 04/19/17 02:06 Dose: 0 units/hr, 0 mls/hr Levetiracetam 1,000 mg/ Sodium (Chloride) 110 mls @ 460 mls/hr IV Q12 COUNT INCLUDES [facility] Last Admin: 04/18/17 21:47 Dose: 460 mls/hr Sodium Chloride (Hypertonic Saline 3%) 500 mls @ 30 mls/hr IV .[id number] COUNT INCLUDES THE [facility] Last Admin: 04/18/17 00:30 Dose: 30 mls/hr Pantoprazole Sodium (Protonix Inj) 40 mg IVP Q12 COUNT [facility]CLUDES THE [facility] Last Admin: 04/18/17 21:47 Dose: 40 mg - Labs Labs: 04/18/17 05:45 04/18/17 18:00 PT 13.5 Seconds (9.9-11.8) H 04/18/17 05:45 INR 1.25 (0.93-1.08) H 04/18/17 05:45 APTT 23.6 Seconds (23.7-30.8) L 04/16/17 10:56 - Constitutional Appears: Other (Intubated and on the ventilator) - Head Exam Additional comments: dressings and tubes in place - ENT Exam Additional comments: ET tube in place - Respiratory Exam Respiratory Exam: Decreased Breath Sounds - Cardiovascular Exam Cardiovascular Exam: +S1, +S2 - GI/Abdominal Exam GI & Abdominal Exam: Soft. absent: Tenderness Assessment and Plan - Assessment and Plan (Free Text) Plan: Assessment Systemic Inflammatory Response Syndrome probably post-surgical reaction for right intracerebral hemorrhage S/P evacuation of hematoma POD #3 consider left lower lobe pneumonia ESRD on HD with left AV fistula HTN S/P cholecystectomy S/P appendectomy Plan continue Rocephin and Doxycycline day 3; repeat CXR shows possible left lower infiltrate and opacity - blood cx are negative x 2 days will continue to monitor clinically Overall prognosis is poor
[2017-04-20 06:35] LABS: BASO # 0.01 K/mm3 (0.0-2.0); BASO % 0.1 % (0.0-3.0); EOS # 0.3 (0.0-0.7); EOS % 1.8 % (1.5-5.0); GRAN # 10.79 (1.4-6.5); GRAN % 76.4 % (50.0-68.0); HEMOGLOBIN 10.2 g/dL (12.0-16.0); LYMPH # 1.9 (1.2-3.4); LYMPH % 13.5 % (22.0-35.0); MEAN CELL VOLUME 88.5 fl (80.0-105.0); MEAN CORPUSCULAR HEMOGLOBIN 28.6 pg (25.0-35.0); MEAN CORPUSCULAR HGB CONC 32.3 g/dl (31.0-37.0); MEAN PLATELET VOLUME 12.3 fl (7.0-11.0); MONO # 1.2 (0.1-0.6); MONO % 8.2 % (1.0-6.0); PLATELET COUNT 209 10^3/uL (120.0-450.0); RBC 3.57 10^6/uL (3.5-6.1); RED CELL DISTRIBUTION WIDTH 16.5 % (11.5-14.5); WHITE BLOOD COUNT 14.1 10^3/ul (4.5-11.0)
[2017-04-20 06:46] LABS: INR 1.22 (0.93-1.08); PROTHROMBIN TIME 13.2 Seconds (9.9-11.8)
[2017-04-20 06:47] LABS: ALB/GLOB RATIO 0.8 (1.1-1.8); ALBUMIN 2.4 g/dL (3.0-4.8); BILIRUBIN,DIRECT 0.6 mg/dL (0.0-0.4); MAGNESIUM 1.9 mg/dL (1.7-2.2)
--- NOTE | 2017-04-20 06:47 | CP.PCM.PN ---
Subjective - Date & Time of Evaluation Date of Evaluation: 04/20/17 Time of Evaluation: 06:44 - Subjective Subjective: Medicine Progress Note for Lila Valdivia PGY2 Patient seen and examined at bedside. As per nursing, there were no acute overnight events. Patient is not sedated and intubated. GCS of 3. ROS could not be obtained. Objective - Vital Signs/Intake and Output Vital Signs (last 24 hours): Temp Pulse Resp BP Pulse Ox 97.7 F 84 12 164/95 H 100 04/20/17 03:20 04/20/17 06:00 04/19/17 15:20 04/20/17 02:15 04/20/17 03:20 Intake and Output: 04/19/17 04/20/17 18:59 06:59 Intake Total 1078 2 Output Total 18 Balance 1060 2 - Medications Medications: Current Medications Nicardipine HCl (Cardene Iv Premix) 20 mg in 200 mls @ 50 mls/hr IV .Q4H PRN; Protocol; 5 MG/HR PRN Reason: TITRATE PER MD ORDER Last Titration: 04/19/17 16:00 Dose: 1 mg/hr, 10 mls/hr Propofol (Diprivan) 1,000 mg in 100 mls @ 1.705 mls/hr IV .Q24H PRN; Protocol; 5 MCG/KG/MIN PRN Reason: TITRATE PER MD ORDER Last Titration: 04/18/17 08:30 Dose: 0 mcg/kg/min, 0 mls/hr Doxycycline Hyclate 100 mg/ (Sodium Chloride) 100 mls @ 100 mls/hr IVPB Q12 NILSA PRN Reason: Protocol Last Admin: 04/19/17 21:55 Dose: 100 mls/hr Ceftriaxone Sodium (Rocephin 1 Gram Ivpb) 1 gm in 100 mls @ 100 mls/hr IVPB DAILY NILSA PRN Reason: Protocol Last Admin: 04/19/17 09:13 Dose: 100 mls/hr Insulin Human Regular 100 (units/ Sodium Chloride) 100 mls @ 1 mls/hr IV .Q24H PRN; Protocol; 1 UNITS/HR PRN Reason: TITRATE PER MD ORDER Last Titration: 04/19/17 23:48 Dose: 0.2 units/hr, 0.2 mls/hr Levetiracetam 1,000 mg/ Sodium (Chloride) 110 mls @ 460 mls/hr IV Q12 NILSA Last Admin: 04/19/17 21:57 Dose: 460 mls/hr Sodium Chloride (Hypertonic Saline 3%) 500 mls @ 30 mls/hr IV .[id number] NILSA Last Admin: 04/19/17 09:07 Dose: 30 mls/hr Pantoprazole Sodium (Protonix Inj) 40 mg IVP DAILY [facility] Last Admin: 04/19/17 11:43 Dose: Not Given Polyethylene Glycol (Miralax) 17 gm PO DAILY NILSA - Labs Labs: 04/19/17 06:02 04/19/17 06:02 PT 13.0 Seconds (9.9-11.8) H 04/19/17 06:02 INR 1.20 (0.93-1.08) H 04/19/17 06:02 APTT 23.6 Seconds (23.7-30.8) L 04/16/17 10:56 - Constitutional Appears: No Acute Distress - Head Exam Head Exam: NORMAL INSPECTION, NORMOCEPHALIC - Eye Exam Additional comments: L pupil blown, R pupil 4mm non reactive. Orbital edema bilaterally - ENT Exam ENT Exam: Mucous Membranes Moist - Neck Exam Neck Exam: Full ROM - Respiratory Exam Respiratory Exam: Clear to Ausculation Bilateral, NORMAL BREATHING PATTERN. absent: Rales, Rhonchi, Wheezes - Cardiovascular Exam Cardiovascular Exam: REGULAR RHYTHM, +S1, +S2. absent: Gallop, Rubs, Murmur - GI/Abdominal Exam GI & Abdominal Exam: Soft, Normal Bowel Sounds. absent: Rigid, Tenderness, Mass , Rebound - Extremities Exam Extremities Exam: Pedal Edema. absent: Calf Tenderness - Neurological Exam Neurological Exam: absent: Alert, Awake, Oriented x3 Neuro motor strength exam: Left Upper Extremity: 0, Right Upper Extremity: 0, Left Lower Extremity: 0, Right Lower Extremity: 0 Additional comments: No brain stem reflexes: No gag reflex or dolls eye reflex, pupils not reactive - Skin Skin Exam: Dry, Intact, Normal Color, Warm Assessment and Plan - Assessment and Plan (Free Text) Assessment: This is a 47Y F with PMH IDDM, ESRD on HD (MWF), HTN who was came to ED from HD admitted for R intracerebral hemorrhage secondary to hypertensive emergency. Pt is s/p Crainiotomy on L POD#4. Drain was removed yesterday. Patient's neurological status is worse today. Plan: 1. Intracerebral hemorrhage secondary to hypertensive emergency - s/p Crainiotomy POD#4 - GCS 3 - Repeat head CT showed no significant change in post op appearance-L lateral ventricle and temporal horn decreased in size - Intubated on PRVC 400/16/5/30% - Protective lung ventilation strategy as per ICU - Neurology consulted-recs appreciated- reports patient has 0% recovery - Neurosurgery consulted- recs appreciated - removed drain yesterday- prognosis poor - Continue neuro checks q1h - Seizure precaution and Prophylaxis Keppra - Continue Cardene drip to maintain SBP 120-130 - Maintain Euglycemia 140-180 and normothermia - Maintain INR <1.4 - As per neuro (Dr. Zavaleta), aggressive measures are feudal at this point - Hypertonic saline and insulin drip d/c 2. Hypernatremia - Na: 161 - Hypertonic saline stopped - Sodium to be adjusted during dialysis today 3. HCAP - afebrile, leukocytosis trending down - Repeat CXR: L retrocardiac infiltrate - Continue Doxy and Rocephin - ID consulted- recs appreciated - Procal increased from 1.47 to 1.53 4. DM - Switched from insulin drip to Insulin Sliding scale - Maintain Euglycemia (140-180) - BGM q4h - HgbA1c of 8.3 5. ESRD on HD - Pt will have HD today - Nephro consulted- recs appreciated 6. Systolic CHF - EF: 35% with poor LV function - Continue aspiration precaution - Cardio consulted- recs appreciated GI ppx: Protonix DVT ppx: SCDs. No anticoagulants due to active bleed Dispo: Prognosis is poor. Palliative care consulted who spoke with family. Family reports they need more time to make a final decision. As per neurology, aggressive measures at this point are feudal Case seen, discussed and reviewed with attending. Lila Moctezuma PGY2
--- NOTE | 2017-04-20 07:46 | CP.PCM.PN ---
Subjective - Date & Time of Evaluation Date of Evaluation: 04/20/17 Time of Evaluation: 07:30 - Subjective Subjective: Surgery Progress Note: Patient seen and examined at bedside. As per nursing, there were no acute overnight events. As per respiratory therapist patient was producing intermittent spontaneous breaths. Patient is not arousable to verbal or painful stimuli at this time. ROS could not be obtained. Objective - Vital Signs/Intake and Output Vital Signs (last 24 hours): Temp Pulse Resp BP Pulse Ox 98.1 F 85 15 170/98 H 100 04/20/17 07:40 04/20/17 07:42 04/20/17 07:15 04/20/17 06:52 04/20/17 07:40 Intake and Output: 04/20/17 04/20/17 06:59 18:59 Intake Total 2 Balance 2 - Medications Medications: Current Medications Nicardipine HCl (Cardene Iv Premix) 20 mg in 200 mls @ 50 mls/hr IV .Q4H PRN; Protocol; 5 MG/HR PRN Reason: TITRATE PER MD ORDER Last Titration: 04/19/17 16:00 Dose: 1 mg/hr, 10 mls/hr Propofol (Diprivan) 1,000 mg in 100 mls @ 1.705 mls/hr IV .Q24H PRN; Protocol; 5 MCG/KG/MIN PRN Reason: TITRATE PER MD ORDER Last Titration: 04/18/17 08:30 Dose: 0 mcg/kg/min, 0 mls/hr Doxycycline Hyclate 100 mg/ (Sodium Chloride) 100 mls @ 100 mls/hr IVPB Q12 NILSA PRN Reason: Protocol Last Admin: 04/19/17 21:55 Dose: 100 mls/hr Ceftriaxone Sodium (Rocephin 1 Gram Ivpb) 1 gm in 100 mls @ 100 mls/hr IVPB DAILY NILSA PRN Reason: Protocol Last Admin: 04/19/17 09:13 Dose: 100 mls/hr Insulin Human Regular 100 (units/ Sodium Chloride) 100 mls @ 1 mls/hr IV .Q24H PRN; Protocol; 1 UNITS/HR PRN Reason: TITRATE PER MD ORDER Last Titration: 04/19/17 23:48 Dose: 0.2 units/hr, 0.2 mls/hr Levetiracetam 1,000 mg/ Sodium (Chloride) 110 mls @ 460 mls/hr IV Q12 NILSA Last Admin: 04/19/17 21:57 Dose: 460 mls/hr Sodium Chloride (Hypertonic Saline 3%) 500 mls @ 30 mls/hr IV .[id number] [facility] Last Admin: 04/19/17 09:07 Dose: 30 mls/hr Pantoprazole Sodium (Protonix Inj) 40 mg IVP DAILY [facility] Last Admin: 04/19/17 11:43 Dose: Not Given Polyethylene Glycol (Miralax) 17 gm PO DAILY NILSA - Labs Labs: 04/20/17 06:21 04/20/17 06:21 PT 13.2 Seconds (9.9-11.8) H 04/20/17 06:21 INR 1.22 (0.93-1.08) H 04/20/17 06:21 APTT 23.6 Seconds (23.7-30.8) L 04/16/17 10:56 - Additional Findings Additional findings: - Constitutional Appears: No Acute Distress - Head Exam Head Exam: NORMAL INSPECTION, NORMOCEPHALIC - Eye Exam Additional comments: L pupil blown, R pupil 4mm non reactive. Orbital edema bilaterally - ENT Exam ENT Exam: Mucous Membranes Moist - Neck Exam Neck Exam: Full ROM - Respiratory Exam Respiratory Exam: Clear to Ausculation Bilateral, NORMAL BREATHING PATTERN. absent: Rales, Rhonchi, Wheezes - Cardiovascular Exam Cardiovascular Exam: REGULAR RHYTHM, +S1, +S2. absent: Gallop, Rubs, Murmur - GI/Abdominal Exam GI & Abdominal Exam: Soft, Normal Bowel Sounds. absent: Rigid, Tenderness, Mass , Rebound - Extremities Exam Extremities Exam: Pedal Edema. absent: Calf Tenderness - Neurological Exam Neurological Exam: absent: Alert, Awake, Oriented x3 Neuro motor strength exam: Left Upper Extremity: 0, Right Upper Extremity: 0, Left Lower Extremity: 0, Right Lower Extremity: 0 Additional comments: No brain stem reflexes: No gag reflex or dolls eye reflex, pupils not reactive - Skin Skin Exam: Dry, Intact, Normal Color, Warm Assessment and Plan - Assessment and Plan (Free Text) Assessment: This is a 47Y F with PMH IDDM, ESRD on HD (MWF), HTN who was admitted to the hospital for evaluation and treatment for R intracerebral hemorrhage and L sided hemiplagia. Drain was removed yesterday. Pt is s/p Crainiotomy on L POD#4. Tracheotomy Tube Placement for intermediate frame tender mechanical ventilation 1. Patients family informed of procedure, awaiting decision regarding consent and goals of care Will d/w attending.
[2017-04-20] MEDS: levETIRAcetam 1,000 MG in Sodium Chloride 0.9% 100 ML IV SCH (09:18)
[2017-04-20] MEDS: cefTRIAXone 1 gm 1 GM/100 ML BAG IVPB SCH (09:20)
[2017-04-20] MEDS: Nicardipine 20 MG/200 ML 20 MG/200 ML BAG IV PRN (09:21)
[2017-04-20] MEDS ORDERED: POLYETHYLENE GLYCOL 3350 17 GM/Dose PACKET PO SCH (10:00)
--- NOTE | 2017-04-20 10:07 | CP.PCM.PN ---
Subjective - Date & Time of Evaluation Date of Evaluation: 04/20/17 Time of Evaluation: 09:20 - Subjective Subjective: Continues to be on the ventilator, not responsive to stimuli, no fevers overnight. Objective - Vital Signs/Intake and Output Vital Signs (last 24 hours): Temp Pulse Resp BP Pulse Ox 97.7 F 82 12 164/95 H 100 04/20/17 03:20 04/20/17 03:20 04/19/17 15:20 04/20/17 02:15 04/20/17 03:20 Intake and Output: 04/19/17 04/20/17 18:59 06:59 Intake Total 1078 2 Output Total 18 Balance 1060 2 - Medications Medications: Current Medications Nicardipine HCl (Cardene Iv Premix) 20 mg in 200 mls @ 50 mls/hr IV .Q4H PRN; Protocol; 5 MG/HR PRN Reason: TITRATE PER MD ORDER Last Titration: 04/19/17 16:00 Dose: 1 mg/hr, 10 mls/hr Propofol (Diprivan) 1,000 mg in 100 mls @ 1.705 mls/hr IV .Q24H PRN; Protocol; 5 MCG/KG/MIN PRN Reason: TITRATE PER MD ORDER Last Titration: 04/18/17 08:30 Dose: 0 mcg/kg/min, 0 mls/hr Doxycycline Hyclate 100 mg/ (Sodium Chloride) 100 mls @ 100 mls/hr IVPB Q12 NILSA PRN Reason: Protocol Last Admin: 04/19/17 21:55 Dose: 100 mls/hr Ceftriaxone Sodium (Rocephin 1 Gram Ivpb) 1 gm in 100 mls @ 100 mls/hr IVPB DAILY NILSA PRN Reason: Protocol Last Admin: 04/19/17 09:13 Dose: 100 mls/hr Insulin Human Regular 100 (units/ Sodium Chloride) 100 mls @ 1 mls/hr IV .Q24H PRN; Protocol; 1 UNITS/HR PRN Reason: TITRATE PER MD ORDER Last Titration: 04/19/17 23:48 Dose: 0.2 units/hr, 0.2 mls/hr Levetiracetam 1,000 mg/ Sodium (Chloride) 110 mls @ 460 mls/hr IV Q12 [facility] Last Admin: 04/19/17 21:57 Dose: 460 mls/hr Sodium Chloride (Hypertonic Saline 3%) 500 mls @ 30 mls/hr IV .[id number] NIL[facility] Last Admin: 04/19/17 09:07 Dose: 30 mls/hr Pantoprazole Sodium (Protonix Inj) 40 mg IVP DAILY [facility] Last Admin: 04/19/17 11:43 Dose: Not Given Polyethylene Glycol (Miralax) 17 gm PO DAILY NILSA - Labs Labs: 04/19/17 06:02 04/19/17 06:02 PT 13.0 Seconds (9.9-11.8) H 04/19/17 06:02 INR 1.20 (0.93-1.08) H 04/19/17 06:02 APTT 23.6 Seconds (23.7-30.8) L 04/16/17 10:56 - Constitutional Appears: Other (Intubated, not responsive) - Head Exam Additional comments: dressings in place - ENT Exam Additional comments: ET tube in place - Respiratory Exam Respiratory Exam: Decreased Breath Sounds - Cardiovascular Exam Cardiovascular Exam: +S1, +S2 - GI/Abdominal Exam GI & Abdominal Exam: Soft. absent: Tenderness Assessment and Plan - Assessment and Plan (Free Text) Plan: Assessment Systemic Inflammatory Response Syndrome probably post-surgical reaction for right intracerebral hemorrhage S/P evacuation of hematoma POD #4 consider left lower lobe pneumonia - patient is comatose and is not responsive ESRD on HD with left AV fistula HTN S/P cholecystectomy S/P appendectomy Plan continue Rocephin and Doxycycline day 4; repeat CXR shows possible left lower infiltrate and opacity - blood cx are negative will continue to monitor clinically Overall prognosis is grave - ICU team and PMD to discuss with family regarding further plan of care
--- NOTE | 2017-04-20 11:18 | CP.PCM.PN ---
Subjective - Date & Time of Evaluation Date of Evaluation: 04/20/17 Time of Evaluation: 11:15 - Subjective Subjective: Mrs. Martinez was seen and examined today at bedside in the ICU. Her brother and friend were present. I re-evaluated her and continue to believe that she has no brainstem or cortical activity. There was no response from the patient. Objective - Vital Signs/Intake and Output Vital Signs (last 24 hours): Temp Pulse Resp BP Pulse Ox 97.5 F L 79 12 120/64 100 04/20/17 10:40 04/20/17 10:40 04/20/17 10:00 04/20/17 10:00 04/20/17 10:40 Intake and Output: 04/20/17 04/20/17 06:59 18:59 Intake Total 77 0 Balance 77 0 - Medications Medications: Current Medications Nicardipine HCl (Cardene Iv Premix) 20 mg in 200 mls @ 50 mls/hr IV .Q4H PRN; Protocol; 5 MG/HR PRN Reason: TITRATE PER MD ORDER Last Admin: 04/20/17 09:21 Dose: 1 mg/hr, 10 mls/hr Doxycycline Hyclate 100 mg/ (Sodium Chloride) 100 mls @ 100 mls/hr IVPB Q12 NILSA PRN Reason: Protocol Last Admin: 04/20/17 09:21 Dose: 100 mls/hr Ceftriaxone Sodium (Rocephin 1 Gram Ivpb) 1 gm in 100 mls @ 100 mls/hr IVPB DAILY NILSA PRN Reason: Protocol Last Admin: 04/20/17 09:20 Dose: 100 mls/hr Levetiracetam 1,000 mg/ Sodium (Chloride) 110 mls @ 460 mls/hr IV Q12 NILSA Last Admin: 04/20/17 09:18 Dose: 460 mls/hr Insulin Human Regular (Humulin R Med) 0 units SC Q4 NILSA PRN Reason: Protocol Pantoprazole Sodium (Protonix Inj) 40 mg IVP DAILY [facility]IL[facility] Last Admin: 04/20/17 09:20 Dose: 40 mg Polyethylene Glycol (Miralax) 17 gm PO DAILY NILSA Last Admin: 04/20/17 09:20 Dose: 17 gm - Labs Labs: 04/20/17 06:21 04/20/17 06:21 PT 13.2 Seconds (9.9-11.8) H 08/11/17 06:21 INR 1.22 (0.93-1.08) H 04/20/17 06:21 APTT 23.6 Seconds (23.7-30.8) L 04/16/17 10:56 - Neurological Exam Additional comments: neurologically unchanged form yesterday's examination. GCS= 3T, no cortical or brainstem activity noted. Assessment and Plan (1) ICH (intracerebral hemorrhage) Assessment & Plan: The patient is most likely neurologically brain at this point. The repeat CT head continues to show diffuse edema with brainstem compression by the blood on the ventricular system. The cortex and midline shift appear unchanged. Will discuss with family DNR status and consider extubation, with their permission. At this point, all aggressive measures are futile. Status: Acute
[2017-04-20] MEDS: Insulin Reg-MEDIUM-Coverage SC SCH ×2 (12:00→15:48)
--- NOTE | 2017-04-20 13:19 | CP.PCM.PN ---
<Roberto Carlos Kelly - Last Filed: 04/20/17 13:16> Subjective - Date & Time of Evaluation Date of Evaluation: 04/20/17 Time of Evaluation: 09:00 - Subjective Subjective: ICU Progress Note Pt was seen and examined at bedside. Pt remains in comatose state. As per nursing, there were no acute overnight events. Patient is not sedated and intubated. Palliative care is on the case for goals of care with family. Objective - Vital Signs/Intake and Output Vital Signs (last 24 hours): Temp Pulse Resp BP Pulse Ox 97.3 F L 81 12 104/55 L 100 04/20/17 12:00 04/20/17 12:00 04/20/17 12:00 04/20/17 12:00 04/20/17 12:00 Intake and Output: 04/20/17 04/20/17 06:59 18:59 Intake Total 77 0 Balance 77 0 - Medications Medications: Current Medications Nicardipine HCl (Cardene Iv Premix) 20 mg in 200 mls @ 50 mls/hr IV .Q4H PRN; Protocol; 5 MG/HR PRN Reason: TITRATE PER MD ORDER Last Admin: 04/20/17 09:21 Dose: 1 mg/hr, 10 mls/hr Doxycycline Hyclate 100 mg/ (Sodium Chloride) 100 mls @ 100 mls/hr IVPB Q12 NILSA PRN Reason: Protocol Last Admin: 04/20/17 09:21 Dose: 100 mls/hr Ceftriaxone Sodium (Rocephin 1 Gram Ivpb) 1 gm in 100 mls @ 100 mls/hr IVPB DAILY NILSA PRN Reason: Protocol Last Admin: 04/20/17 09:20 Dose: 100 mls/hr Levetiracetam 1,000 mg/ Sodium (Chloride) 110 mls @ 460 mls/hr IV Q12 NILSA Last Admin: 04/20/17 09:18 Dose: 460 mls/hr Insulin Human Regular (Humulin R Med) 0 units SC Q4 NILSA PRN Reason: Protocol Last Admin: 04/20/17 12:00 Dose: Not Given Pantoprazole Sodium (Protonix Inj) 40 mg IVP DAILY NILSA Last Admin: 04/20/17 09:20 Dose: 40 mg Polyethylene Glycol (Miralax) 17 gm PO DAILY NILSA Last Admin: 04/20/17 09:20 Dose: 17 gm - Labs Labs: 04/20/17 06:21 04/20/17 06:21 PT 13.2 Seconds (9.9-11.8) H 04/20/17 06:21 INR 1.22 (0.93-1.08) H 04/20/17 06:21 APTT 23.6 Seconds (23.7-30.8) L 04/16/17 10:56 - Constitutional Appears: No Acute Distress - Head Exam Additional comments: head is dressed s/p craniotomy - Eye Exam Pupil Exam: Fixed Additional comments: L pupil blown, R pupil 4mm non reactive. Orbital edema bilaterally - ENT Exam ENT Exam: Mucous Membranes Moist - Neck Exam Neck Exam: Normal Inspection - Respiratory Exam Respiratory Exam: Clear to Ausculation Bilateral, NORMAL BREATHING PATTERN Additional comments: mechanically ventillated - Cardiovascular Exam Cardiovascular Exam: REGULAR RHYTHM, +S1, +S2. absent: Murmur - GI/Abdominal Exam GI & Abdominal Exam: Soft, Normal Bowel Sounds - Neurological Exam Neurological Exam: absent: Alert, Altered, Awake, CN II-XII Intact, Oriented x3 Additional comments: No brainstrem reflexes - Skin Skin Exam: Dry, Intact, Normal Color, Warm Assessment and Plan - Assessment and Plan (Free Text) Assessment: 47Y F with PMH IDDM, ESRD on HD (MWF), HTN admitted for catastrophic R intracerebral hemorrhage secondary to hypertensive emergency, admitted to the ICU for close monitoring for further deterioration s/p craniectomy with decompression POD#4. Pt is Patient's neurological status is worse today. Prognosis is poor. Palliative care consulted who spoke with family. Family reports they need more time to make a final decision. As per neurology, aggressive measures at this point are feudal Neuro: Intracerebral hemorrhage 2/2 HTN emergency Seizure precaution and Prophylaxis [facility], Dr. Zavaleta consulted, repeat CT head continues to show diffuse edema with brainstem compression by the blood on the ventricular system. The cortex and midline shift appear unchanged. Will discuss with family DNR status and consider extubation, with their permission. At this point, all aggressive measures are futile. Neurosurgery consulted Dr. Luis removed drain yesterday Continue to control temperature to avoid hyperthermia Pulm: Mechanical Intubation PRVC 400/16/5/30% Repeat CXR: L retrocardiac infiltrate ID consulted, Dr. Elidia torres, Doxy and rocephin Procal uptrending maintain 02 sat >90% protective lung strategy, HOB >30 pulm toileting CVS: Cardene drip 5mg/hr titrated to maintain sbp 120-130 Hypertonic saline dc, Sodium to be adjusted during dialysis today continue to monitor EF: 35% with poor LV function GI: NPO GI PPx Renal: ESRD on HD Nephrology Consulted IVF hypertonic saline with a goal Na of 145-155 ID: CAP Repeat CXR: L retrocardiac infiltrate ID consulted, Dr. Elidia torres, Doxy and rocephin Procal uptrending Continue to monitor Heme maintain INR <1.4 Endo: insulin drip d/c, SSI Maintain Euglycemia (140-180) fingersticks q4 GI ppx: Protonix DVT ppx: SCDs poor prognosis, follow up palliative care consult, will attempt to set up family meeting with Korya, Palliative care, and primary team to discuss with family. At this point, all aggressive measures are futile. <Kim AMAYA,Chris H - Last Filed: 04/20/17 15:03> Objective - Vital Signs/Intake and Output Vital Signs (last 24 hours): Temp Pulse Resp BP Pulse Ox 97.2 F L 81 12 110/58 L 100 04/20/17 14:00 04/20/17 14:00 04/20/17 14:00 04/20/17 14:00 04/20/17 14:00 Intake and Output: 04/20/17 04/20/17 06:59 18:59 Intake Total 77 0 Balance 77 0 - Medications Medications: Current Medications Nicardipine HCl (Cardene Iv Premix) 20 mg in 200 mls @ 50 mls/hr IV .Q4H PRN; Protocol; 5 MG/HR PRN Reason: TITRATE PER MD ORDER Last Admin: 04/20/17 09:21 Dose: 1 mg/hr, 10 mls/hr Doxycycline Hyclate 100 mg/ (Sodium Chloride) 100 mls @ 100 mls/hr IVPB Q12 NILSA PRN Reason: Protocol Last Admin: 04/20/17 09:21 Dose: 100 mls/hr Ceftriaxone Sodium (Rocephin 1 Gram Ivpb) 1 gm in 100 mls @ 100 mls/hr IVPB DAILY NILSA PRN Reason: Protocol Last Admin: 04/20/17 09:20 Dose: 100 mls/hr Levetiracetam 1,000 mg/ Sodium (Chloride) 110 mls @ 460 mls/hr IV Q12 NILSA Last Admin: 04/20/17 09:18 Dose: 460 mls/hr Insulin Human Regular (Humulin R Med) 0 units SC Q4 NILSA PRN Reason: Protocol Last Admin: 04/20/17 12:00 Dose: Not Given Pantoprazole Sodium (Protonix Inj) 40 mg IVP DAILY NILSA Last Admin: 04/20/17 09:20 Dose: 40 mg Polyethylene Glycol (Miralax) 17 gm PO DAILY NILSA Last Admin: 04/20/17 09:20 Dose: 17 gm - Labs Labs: 04/20/17 06:21 04/20/17 06:21 PT 13.2 Seconds (9.9-11.8) H 04/20/17 06:21 INR 1.22 (0.93-1.08) H 04/20/17 06:21 APTT 23.6 Seconds (23.7-30.8) L 04/16/17 10:56 Attending/Attestation - Attestation I have personally seen and examined this patient.: Yes I have fully participated in the care of the patient.: Yes I have reviewed all pertinent clinical information, including history, physical exam and plan: Yes Notes (Text): 04/20/17 15:00 47 y/o F for which I'm seeing for the first time. Clinical exam suggests no higher brain function w/ lack of CN and Respiratory centers. Unable to have spont breaths on the Vent PS trial. Documentation reviewed from both Neurology and Neurosurgery which states clinical Brain . Unclear if the family is aware of the significance of clinical brain . Awaiting palliative care to have all family members in place to make the patient comfort care/ Terminal extubation. cc time 45 min
--- NOTE | 2017-04-20 14:01 | PN ---
DATE: 04/20/2017 SUBJECTIVE: The patient remains ventilator dependent with minimal neurologic cerebral function. PHYSICAL EXAMINATION: VITAL SIGNS: Blood pressure 129/66, heart rate is in the 70s. NECK: Negative JVD. LUNGS: Decreased breath sounds without rales. HEART: Reveal S1, S2. EXTREMITIES: Without change. LABORATORY DATA: Hemoglobin is 10.2. Chemistries, sodium is up to 161 with a BUN and creatinine 35 and 4.9. IMPRESSION: 1. Intracerebral bleed. 2. Renal insufficiency. 3. History of dilated cardiomyopathy. 4. Hypertension, which is now well-controlled. The patient's prognosis is poor. Continue supportive care. Neeraj Moore MD
--- NOTE | 2017-04-20 16:16 | CP.PCM.PN ---
Subjective - Date & Time of Evaluation Date of Evaluation: 04/20/17 Time of Evaluation: 17:00 - Subjective Subjective: Unresponsive, no gag/corneal or pupillary reflexes Objective - Vital Signs/Intake and Output Vital Signs (last 24 hours): Temp Pulse Resp BP Pulse Ox 97.2 F L 83 12 129/67 100 04/20/17 15:00 04/20/17 15:00 04/20/17 15:00 04/20/17 15:00 04/20/17 15:00 Intake and Output: 04/20/17 04/20/17 06:59 18:59 Intake Total 77 670 Balance 77 670 - Medications Medications: Current Medications Nicardipine HCl (Cardene Iv Premix) 20 mg in 200 mls @ 50 mls/hr IV .Q4H PRN; Protocol; 5 MG/HR PRN Reason: TITRATE PER MD ORDER Last Admin: 04/20/17 09:21 Dose: 1 mg/hr, 10 mls/hr Doxycycline Hyclate 100 mg/ (Sodium Chloride) 100 mls @ 100 mls/hr IVPB Q12 NILSA PRN Reason: Protocol Last Admin: 04/20/17 09:21 Dose: 100 mls/hr Ceftriaxone Sodium (Rocephin 1 Gram Ivpb) 1 gm in 100 mls @ 100 mls/hr IVPB DAILY NILSA PRN Reason: Protocol Last Admin: 04/20/17 09:20 Dose: 100 mls/hr Levetiracetam 1,000 mg/ Sodium (Chloride) 110 mls @ 460 mls/hr IV Q12 NILSA Last Admin: 04/20/17 09:18 Dose: 460 mls/hr Insulin Human Regular (Humulin R Med) 0 units SC Q4 NILSA PRN Reason: Protocol Last Admin: 04/20/17 15:48 Dose: Not Given Pantoprazole Sodium (Protonix Inj) 40 mg IVP DAILY NILSA Last Admin: 04/20/17 09:20 Dose: 40 mg Polyethylene Glycol (Miralax) 17 gm PO DAILY NILSA Last Admin: 04/20/17 09:20 Dose: 17 gm - Labs Labs: 04/20/17 06:21 04/20/17 06:21 PT 13.2 Seconds (9.9-11.8) H 04/20/17 06:21 INR 1.22 (0.93-1.08) H 04/20/17 06:21 APTT 23.6 Seconds (23.7-30.8) L 04/16/17 10:56 - Constitutional Appears: Chronically Ill - Eye Exam Pupil Exam: Fixed - ENT Exam ENT Exam: Mucous Membranes Moist - Respiratory Exam Respiratory Exam: NORMAL BREATHING PATTERN Additional comments: intubated - Cardiovascular Exam Cardiovascular Exam: REGULAR RHYTHM, +S1, +S2 - GI/Abdominal Exam GI & Abdominal Exam: Soft, Diminished Bowel Sounds - Extremities Exam Extremities Exam: Pedal Edema - Neurological Exam Neurological Exam: Altered - Skin Skin Exam: Dry, Warm Assessment and Plan - Assessment and Plan (Free Text) Assessment: 47 year old female with hsioty of ESRD, HTN, CAD, CHF, IDDM who suffered a catastrophic intracranial hemorrhage. Family at bedside. Patient's Aunt Rosibel indicated that family is nearing decision for terminal extubation/comfort care. Family is waiting to speak with neurology, Dr Zavaleta before moving forward with extubation. They indicated that they would likely proceed with plan this evening. Time spent with family in goals of care discussion/end of life counseling, 45 minutes Plan: Palliative support End of life counseling
--- NOTE | 2017-04-20 16:36 | PN ---
DATE: 04/20/2017 SUBJECTIVE: The patient is seen in the ICU. She is unresponsive, remains on vent, not on any antihypertensives, not on any sedation. Family members are at bedside. PHYSICAL EXAMINATION: GENERAL: Middle-aged lady, lying in bed in the ICU on mechanical ventilation. The patient has a craniotomy on the left side. VITAL SIGNS: Blood pressure 110/58, heart rate 81, respiratory rate 12 and temperature 97.2. HEENT: Normocephalic, craniotomy on the left side. Pupils unequal, not reactive to light. NECK: Supple, no JVD. LUNGS: Bilateral equal air entry, bilateral rhonchi, equal expansion. CARDIAC: S1 and S2, regular rate and rhythm, no murmur, no rub. ABDOMEN: Soft, nondistended, nontender, bowel sounds sluggish. EXTREMITIES: No lower extremity edema. INTAKE AND OUTPUT: 1155/18. LABORATORY DATA: WBC 14, hemoglobin 10, hematocrit 32 and platelets 209. Sodium 161, potassium 3.8, chloride 125, BUN 35, creatinine 4.9, glucose 91, calcium 9.0, phosphorus 3.7, magnesium 1.9, AST 29, ALT 25, albumin 2.4, glyburide 3.2. CURRENT MEDICATIONS: Nicardipine 1 mg/hour, doxycycline 100 q. 12, Keppra, MiraLax, Protonix, Ceftriaxone 1 g daily, off 3% saline. ASSESSMENT: 1. Catastrophic right intracerebral hemorrhage secondary to hypertensive emergency. 2. Status post craniotomy and decompression postop day #4. 3. Worsening neurological status. 4. Permissive hypernatremia. 5. Hypokalemia. 6. Brain neurologically. PLAN: 1. DNR status is being discussed with the family as of right now. 2. Family is contemplating terminal extubation. 3. We will dialyze the patient if family does make that decision today. 4. Discussed with multiple family members at bedside. 5. Discussed with ICU staff. 6. Discussed with clinical trial head. 7. More than 35 minutes spent in counseling and care coordination. Joy Andrade MD [facility] # [id number]
[2017-04-20 16:53] VITALS: PULSE 79
[2017-04-20 16:54] VITALS: BP 123/64
[2017-04-20] MEDS ORDERED: Morphine 2 mg/ml ISec IVP PRN (17:30)
--- NOTE | 2017-04-20 18:20 | PN ---
DATE: 04/20/2017 SUBJECTIVE: The patient is seen in ICU, bed 1. The patient's brother and cousin is at bedside. The patient is intubated on ventilator, sedated on Diprivan drip, unresponsive. Overnight nurse's notes were reviewed. The patient remained unresponsive with bilateral fixed pupils and dilated. NG tube placement was done with nephro feeding at 30 mL an hour. The patient's case discussed with Neurologist Dr. Zavaleta, recommends to stop the hypertonic saline because of the elevated sodium of 161. Th patient had a PICC line placed in the right basilic vein. PHYSICAL EXAMINATION: VITAL SIGNS: T-max 97.7, pulse 79-84, blood pressure 120/64, 170/99, 170/94, 166/89, 153/85, O2 sat 100, respirations 16-12. Intake and output noted. HEENT: Head examination shows positive scalp dressing of the ventriculostomy shunt. Pupils are fixed and dilated. CHEST: Kyphosis. LUNGS: Shows positive rhonchi, upper lung monteiro. CARDIOVASCULAR: S1 and S2. Regular rhythm. ABDOMEN: Soft. Positive bowel sounds. Positive left upper extremity AV fistula. Positive thrill. Positive right upper extremity PICC line placement. The patient has a right upper extremity PICC line placement. EXTREMITIES: Lower extremity shows no pitting, No calf tenderness. No Sylvia's signs. NEUROLOGIC: The patient is unresponsive. DIAGNOSTIC DATA: On 04/20/2017; WBC 14.1, hemoglobin and hematocrit 10.2 and 31.6 and platelet 209. Granulocytes is 76%. Sodium today is 161, potassium 3.8, chloride 125, CO2 of 26, anion gap 14, BUN 35, creatinine 4.9, GFR 12, blood sugar 102, 95, 84. LFTs shows alk phos of 194, total protein 5.5, albumin 2.4. Procalcitonin level is elevated at 1.53. Blood cultures negative. The patient had a CAT scan of the chest. CT of the head done yesterday. It shows no change in the postoperative appearance of the large right hemispheric hemorrhage and hematoma with the craniotomy defect in the large airfield cleft within the into the hematoma with persistent blood in the ventricular system and 10 mm midline shift to the left. Left lateral ventricle shunt has been removed, fourth and third ventricle hemorrhage noted. Chest x-ray was done. Left lower lobe infiltrate noted. Small left pleural effusion noted. IMPRESSION AND PLAN: 1. Right-sided intracerebral intraventricular hemorrhage and bleed, most likely neurological brain status. 2. Diffuse cerebral edema with brainstem compression and intraventricular bleed with midline shift to the left. 3. End-stage renal disease, hemodialysis dependent. 4. Systemic inflammatory response syndrome. 5. Left lower lobe pneumonia and infiltrate. 6. Patient clinically brain status. 7. Right intracerebral bleed with left-sided hemiplegia. 8. Type I insulin requiring diabetes mellitus, history of hypertension, history of end-stage renal disease, hemodialysis dependent. 9. History of end-stage renal disease, hemodialysis dependent. 10. Status post decompression and craniectomy. 11. Possible left lower lobe pneumonia. 12. Leukocytosis with granulocytosis. 13. Ventilator dependent, respiratory failure. 14. Questionable left lower lobe ventilator dependent. 15. Left lower lobe aspiration pneumonia. 16. Hypernitremia. 17. Uncontrolled type I insulin requiring diabetes mellitus with elevated hemoglobin A1c. 18. Protein malnutrition and hyperbilirubinemia. 19. Hyperprolactinemia. 20. Hypercholesterolemia. 21. Right hemispheric intracerebral hemorrhage unchanged. 22. Status post craniotomy. 23. Midline shift to the left. 24. Feeding dysfunction, status post nasogastric tube placement. 25. Status post right upper extremity PICC line placement. PLAN: At this time, the patient's hypertonic saline has been discontinued. The patient's ventriculostomy shunt has been removed. The patient has been seen by the surgery. They are awaiting the patient's family's decisions about gastrostomy and tracheostomy. The patient seen by the palliative care nurses. Awaiting decision from the family about DNR, DNI and possible termination of life support as the patient's family has been told by neurology and neurosurgery that the patient's brain clinically. The patient's current repeat labs have been ordered. Current consultations are cardiology, infectious disease, neurology, palliative care, nephrology, and surgery. CURRENT MEDICATIONS: Doxycycline 100 mg IV q.12, insulin regular medium sliding scale coverage q.4 hours, Keppra 1000 mg IV q.12, MiraLax 17 g daily, Cardene drip, Protonix 40 IV daily, Rocephin 1 g IV daily. The patient is n.p.o. The patient is on NG tube feeding. Prognosis poor to guarded to poor. The patient is clinically brain as per neurology and neurosurgery. Dictated and electronically signed, not read. Signing off, Nader Ramos MD Nader Ramos MD
[2017-04-20 18:23] VITALS: RESP 22; TEMP 97
--- NOTE | 2017-04-21 23:38 | CP.PCM.PRO ---
Pronouncement of Note - Clinical Findings Physical Exam: No Response Verbal/Painful Stimuli, Absent Peripheral Pulses{ Carotid & Femoral}, Absent Heart & Breath Sounds, No Pupillary Light Reflex, No Corneal Reflex, Pupils Fixed & Dilated, Absence of Vital Signs - Pronouncement Time Time of Pronouncement of : 18:11 Additional Comments: On 04/20/2017 - Notifications Pronouncement Notifications: Family Notified, Atending Notified Store Leader Notified: No - Autopsy Autopsy Requested: No - [place] [id number] Additional Comments: E[place] certificate initiated, to be completed by PCP
== END 2017-04-20 18:30 | DRG 23 ==
LOC: ED 10:28 → ERH 13:02 → CCU 17:26
PROVIDERS: ADMIT Internal Medicine; ATTEND Internal Medicine
PROC: 5A1945Z Respiratory Ventilation, 24-96 Consecutive Hours (ICD-10-PCS; 2017-04-16)
PROC: 0BH17EZ Insertion of Endotracheal Airway into Trachea, Via Natural or Artificial Opening (ICD-10-PCS; 2017-04-16)
PROC: 06HY33Z Insertion of Infusion Device into Lower Vein, Percutaneous Approach (ICD-10-PCS; 2017-04-16)
PROC: 00C70ZZ Extirpation of Matter from Cerebral Hemisphere, Open Approach (ICD-10-PCS; principal; 2017-04-17)
PROC: 001 Central Nervous System and Cranial Nerves, Bypass (ICD-10-PCS; 2017-04-17)
PROC: 5A1D00Z (ICD-10-PCS; 2017-04-18)
DX: I61.0 Nontraumatic intracerebral hemorrhage in hemisphere, subcortical (principal); N18.6 End stage renal disease; J96.90 Respiratory failure, unspecified, unspecified whether with hypoxia or hypercapnia; G93.6 Cerebral edema; I13.2 Hypertensive heart and chronic kidney disease with heart failure and with stage 5 chronic kidney disease, or end stage renal disease; J18.9 Pneumonia, unspecified organism; G91.1 Obstructive hydrocephalus; I12.0 Hypertensive chronic kidney disease with stage 5 chronic kidney disease or end stage renal disease; E87.0 Hyperosmolality and hypernatremia; I16.1 Hypertensive emergency; G81.94 Hemiplegia, unspecified affecting left nondominant side; N25.81 Secondary hyperparathyroidism of renal origin; I42.0 Dilated cardiomyopathy; I50.20 Unspecified systolic (congestive) heart failure; E46 Unspecified protein-calorie malnutrition; Z99.11 Dependence on respirator [ventilator] status; R47.1 Dysarthria and anarthria; E87.6 Hypokalemia; E11.22 Type 2 diabetes mellitus with diabetic chronic kidney disease; D63.1 Anemia in chronic kidney disease; E11.649 Type 2 diabetes mellitus with hypoglycemia without coma; I27.2 Other secondary pulmonary hypertension; R29.713 NIHSS score 13; E78.00 Pure hypercholesterolemia, unspecified; R40.2432 Glasgow coma scale score 3-8, at arrival to emergency department; Y95 Nosocomial condition; E78.5 Hyperlipidemia, unspecified; H57.02 Anisocoria; I34.0 Nonrheumatic mitral (valve) insufficiency; Z66 Do not resuscitate; Z99.2 Dependence on renal dialysis; Z79.4 Long term (current) use of insulin; Z68.25 Body mass index [BMI] 25.0-25.9, adult